=== PATIENT | female | born 1940 | race Caucasian/White ===

== ENCOUNTER 2016-10-09 21:54 | Inpatient (IN) | payer OTHER ==
[~2016-10-09] VITALS: Ht 175.3 cm; Wt 81.9 kg
[2016-10-09] MEDS ORDERED: SIMV10TA2 PO (23:32)
[2016-10-09] MEDS ORDERED: ASPI-435 PO (23:32)
[2016-10-09] MEDS ORDERED: GLYB5TAB8 PO (23:33)
[2016-10-09] MEDS ORDERED: INDSR/120 PO (23:33)
[2016-10-09] MEDS ORDERED: GLC/500 PO (23:33)
[2016-10-09 23:35] LABS: BASO % 0.3 %; BASO ABS # 0.02 K/uL (0-0.2); COMPLETE YES; EOS % 2.6 %; HEMATOCRIT 37.1 % (37-47); IG% 0.3 %; LYMPH % 26.2 %; LYMPH ABS # 1.61 K/uL (1.2-3.4); MEAN CELL VOLUME 84.3 fL (80-100); MEAN CORPUSCULAR HEMOGLOBIN 27.7 pg (25-34); MEAN CORPUSCULAR HGB CONC 32.9 g/dl (32-36); MEAN PLATELET VOLUME 9.3 fL (7.4-10.4); MONO % 8.9 %; NEUT % 61.7 %; PLATELET COUNT 207 K/uL (130-400); WHITE BLOOD COUNT 6.15 K/uL (4.8-10.8)
[2016-10-09 23:57] LABS: ALT/SGPT 16 U/L (12-78); AST/SGOT 9 U/L (15-37); BLOOD UREA NITROGEN 15 mg/dl (7-18); BUN/CREATININE RATIO 12.1 (10-20); CALCIUM 8.7 mg/dl (8.5-10.1); CARBON DIOXIDE 29 mmol/L (21-32); CHLORIDE 106 mmol/L (98-107); GLUCOSE 167 mg/dl (70-99); POTASSIUM 3.6 mmol/L (3.5-5.1); SODIUM 144 mmol/L (136-145)
[2016-10-10] LABS: ALKALINE PHOSPHATASE 89 U/L (45-117)
[2016-10-10] MEDS ORDERED: OPTIRAY 320 IV PRN (00:15)
[2016-10-10] MEDS ORDERED: PIPERACILLIN/TAZOBACTAM 4.5 GM/100ML D5W IV STA (01:38)
--- NOTE | 2016-10-10 01:49 | EMERGENCY ROOM VISIT NOTE ---
History Report prepared by Maurizio: Katy Mcdonald Under the Supervision of: Dr. Jose Trujillo M.D. First contact with patient: 22:21 Chief Complaint: GI ASSESSMENT Stated Complaint: PRESSURE AND BOWEL Nursing Triage Summary: Pt reports she was in the bathtub this evening and noticed stool coming from her vagina History of Present Illness The patient is a 76 year old female who presents to the Emergency Room with complaints of an episode of stool coming from her vagina that occurred tonight. The patient states that she was taking a bath tonight when she noticed stool was coming from her vagina. She denies having this happen to her before. She denies abdominal pain. The patient notes lower abdominal pressure that felt like she needed to move her bowels for the past few days. She notes that her last bowel movement was today and it was normal. The patient denies nausea or vomiting. She has a history of a partial hysterectomy, hypertension and Type 2 diabetes. She denies any blood in her stool or vaginal bleeding. Source of History: patient Onset: tonight Position: other (vagina) Quality: other (stool from vagina) Timing: other (episode) Associated Symptoms: + abdominal pain (pressure), No nausea, No vomiting Review of Systems See HPI for pertinent positives & negatives. A total of 10 systems reviewed and were otherwise negative. Past Medical & Surgical Medical Problems: (1) Hypertension (2) Tachycardia (3) Type 2 diabetes mellitus Surgical Problems: (1) S/P partial hysterectomy Family History Cancer Diabetes mellitus Heart disease Hypertension Kidney disease Kidney stones Social History Smoking Status: Never Smoker Smokeless Tobacco Use: No Alcohol Use: none Housing Status: lives alone Occupation Status: retired Current/Historical Medications Scheduled Aspirin (Aspirin 81), 81 MG PO DAILY Glyburide (Micronase), 5 MG PO DAILY Metformin Hcl (Glucophage), 500 MG PO BID Propranolol La (Inderal La), 120 MG PO DAILY Simvastatin (Zocor), 1 TAB PO HS Allergies Coded Allergies: No Known Allergies (Unverified , 10/09/16) Physical Exam Vital Signs Date Time Temp Pulse Resp B/P Pulse Ox O2 Delivery O2 Flow Rate FiO2 10/10/16 00:43 69 164/86 97 Room Air 10/09/16 21:58 36.7 71 20 188/87 98 Room Air Physical Exam Constitutional: Vital signs reviewed. Eyes: Pupils are equal round reactive to light. Conjunctiva are noninjected. ENT: Pharynx is clear without erythema or exudate. Mucous membranes are moist. Neck supple without meningeal signs. Respiratory: Clear to auscultation bilaterally. Breath sounds are equal bilaterally. Cardiovascular: Regular rate and rhythm. No rubs or gallops. GI: Soft, nondistended and nontender. Bowel sounds are present. Musculoskeletal: No peripheral edema. No lower extremity tenderness. Vaginal: Loose brown feces from vagina. Integumentary: No cyanosis. Neurological: The patient is awake and alert. No focal deficits. Psychiatric: Normal affect. Medical Decision & Procedures ER Provider Diagnostic Interpretation: CT results as stated below per my review and radiologist interpretation. CT ABDOMEN & PELVIS: Severe wall thickening of the sigmoid colon with several associated diverticula. Primary consideration is acute diverticulitis. However, mass not excluded. Correlated with clinical findings and direct visualization. Small amount of free fluid. No free air or peridiverticular abscess. Several adjacent subcentimeter mesenteric lymph nodes. Absent uterus. There is suspected rectovaginal fistula on image 405 of series 3. Gas in the vaginal fornix noted. There is mild right hydronephrosis and hydroureter, may be secondary to extrinsic compression of the distal right ureter from inflammatory changes in the sigmoid colon. Recommended followup to resolution. Fatty liver. Degenerative changes in the lumbar spine. Radiologist: Kacey Rodriguez MD Study read at 01:02 Laboratory Results 10/09/16 23:22 Red Blood Count 4.40, Mean Corpuscular Volume 84.3, Mean Corpuscular Hemoglobin 27.7, Mean Corpuscular Hemoglobin Concent 32.9, Mean Platelet Volume 9.3, Neutrophils (%) (Auto) 61.7, Lymphocytes (%) (Auto) 26.2, Monocytes (%) (Auto) 8.9, Eosinophils (%) (Auto) 2.6, Basophils (%) (Auto) 0.3, Neutrophils # (Auto) 3.79, Lymphocytes # (Auto) 1.61, Monocytes # (Auto) 0.55, Eosinophils # (Auto) 0.16, Basophils # (Auto) 0.02 10/09/16 23:22 Test 10/09/16 23:22 White Blood Count 6.15 K/uL (4.8-10.8) Red Blood Count 4.40 M/uL (4.2-5.4) Hemoglobin 12.2 g/dL (12.0-16.0) Hematocrit 37.1 % (37-47) Mean Corpuscular Volume 84.3 fL (80-100) Mean Corpuscular Hemoglobin 27.7 pg (25-34) Mean Corpuscular Hemoglobin Concent 32.9 g/dl (32-36) Platelet Count 207 K/uL (130-400) Mean Platelet Volume 9.3 fL (7.4-10.4) Neutrophils (%) (Auto) 61.7 % Lymphocytes (%) (Auto) 26.2 % Monocytes (%) (Auto) 8.9 % Eosinophils (%) (Auto) 2.6 % Basophils (%) (Auto) 0.3 % Neutrophils # (Auto) 3.79 K/uL (1.4-6.5) Lymphocytes # (Auto) 1.61 K/uL (1.2-3.4) Monocytes # (Auto) 0.55 K/uL (0.11-0.59) Eosinophils # (Auto) 0.16 K/uL (0-0.5) Basophils # (Auto) 0.02 K/uL (0-0.2) RDW Standard Deviation 40.6 fL (36.4-46.3) RDW Coefficient of Variation 13.3 % (11.5-14.5) Immature Granulocyte % (Auto) 0.3 % Immature Granulocyte # (Auto) 0.02 K/uL (0.00-0.02) Anion Gap 9.0 mmol/L (3-11) Est Creatinine Clear Calc Drug Dose 45.6 ml/min Estimated GFR () 50.5 Estimated GFR (Non- 43.6 BUN/Creatinine Ratio 12.1 (10-20) Calcium Level 8.7 mg/dl (8.5-10.1) Total Bilirubin 0.5 mg/dl (0.2-1) Direct Bilirubin < 0.1 mg/dl (0-0.2) Aspartate Amino Transf (AST/SGOT) 9 U/L (15-37) Alanine Aminotransferase (ALT/SGPT) 16 U/L (12-78) Alkaline Phosphatase 89 U/L (45-117) Total Protein 8.2 gm/dl (6.4-8.2) Albumin 3.7 gm/dl (3.4-5.0) Lipase 97 U/L (73-393) Laboratory results as reviewed by me. ED Course 2221: The patient was evaluated in room A2. A complete history and physical exam was performed. 223: I spoke with Dr. Portillo - Surgery about the patient. He says to order a CT scan and admit to medicine. 0017: I checked on the patient and discussed the test results with her. She is waiting for CT scan. 0111: The patient states that the contrast is now coming out of her vagina. 0138: Zosyn Iv 4.5 gm IV. 0141: I spoke with Dr. Rotmhan of [facility]. We discussed the patient and her results. The patient will be further evaluated by Dr. Rothman - [facility]. 0144: I talked to the patient's daughter about her results. Medical Decision This is a 76-year-old female presents with stool coming from her vagina. Differential diagnosis includes rectovaginal fistula, colon mass, abdominal mass , carcinoma, colitis. I did perform a limited focused review of portions of the patient's old chart on the electronic medical record. The patient has had no visits to this hospital. Blood Pressure Screening: Patient was found to have an elevated blood pressure and was referred to their primary doctor for recheck and further treatment. Medication Reconciliation: I attest that I have personally reviewed the patient' s current medication list. I did evaluate the patient as noted above. The patient is having stool coming out of her vaginal cough. It started tonight. She has had some pressure in her abdomen but denies any pain. She states she feels otherwise well. I did speak to the surgeon sales operations associate who recommended obtaining a CT scan and admitting her to medicine. IV access was established. I did order and review the patient 's blood work as noted in the electronic medical record. Her white blood cell count is not elevated. I did order a CT of the abdomen and pelvis. I did review the images myself as well as the radiology report as described above. She has sigmoid diverticulitis without perforation or free air. 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 I did treat her with Zosyn IV. I did discuss the case with the hospitalist on-call and the corrections caseworker. Consults Time Called: 2228 Consulting Physician: Dr. Portillo - Surgery Returned Call: [phone] Portillo - Surgery about the patient. He says to order a CT scan and admit to medicine. Additional Consults: Time Called: 138 Consulted Physician: Dr. Stephan Fuller Returned Call: 014 Additional Comments: I spoke with Dr. Rothman of [facility]. We discussed the patient and her results. The patient will be further evaluated by Dr. Stephan Fuller. Impression Primary Impression: Sigmoid diverticulitis Additional Impression: Rectal vaginal fistula Scribe Attestation The scribe's documentation has been prepared under my direct and personally reviewed by me in its entirety. I confirm that the note above accurately reflects all work, treatment, procedures, and medical decision making performed by me. Departure Information Dispostion Being Evaluated By Hospitalist Tasneem Muñiz M.D. (PCP) Problem Qualifiers
[2016-10-10] MEDS ORDERED: GLUCAGON FOR INJ 1 MG VIAL SQ PRN (02:30)
[2016-10-10] MEDS ORDERED: DEXTROSE 50% 50 ML SYR IV PRN (02:30)
[2016-10-10] MEDS ORDERED: GLUCOSE 40% GEL 15 GM TUBE PO PRN (02:30)
[2016-10-10] MEDS ORDERED: CLONIDINE HCL 0.1 MG TAB PO PRN (02:30)
[2016-10-10] MEDS ORDERED: GLUCOSE 10 TABS/TUBE PO PRN (02:30)
[2016-10-10] MEDS ORDERED: PIPERACILL/TAZOBAC CONSULT ACTIVE PRN (02:31)
[2016-10-10] MEDS ORDERED: PHARMACY GLYCEMIC MGMT CONSULT PRN (02:33)
--- NOTE | 2016-10-10 02:38 | History and Physical ---
History & Physical Date & Time of Service: October 10, 2016 at 02:23 Chief Complaint: Pressure And Bowel Primary Care Physician: Tasneem Rosa M.D. History of Present Illness Source: patient, clinic records, hospital records 76 year old female with history of DM Type 2 on oral medications, Hypertension, CKD 3 and Paroxysmal Atrial Tachycardia presenting with passage of feces from the vagina noted this evening. Follows with Dr. Rosa for Primary Care. Patient was at her usual state of health until this evening, while taking a shower, patient noted fecal matter coming from the vagina. She denies abdominal pain, diarrhea, fever/chills, nausea/vomiting. Patient then went to the ER for evaluation. Patient was received with BP of 188/7, HR 71, afebrile. CT abdomen/pelvis: possible sigmoid diverticulitis, rectosigmoid fistula, right hydronephrosis General Surgeon Dr. Portillo consulted. On my exam, patient was resting in bed, comfortable. She reports that she continues to have passage of fecal matter from the vagina. Denies chills, abdominal pain, nausea/vomiting. No changes with urination. Denies other symptoms. Past Medical/Surgical History Medical Problems: (1) Hypertension Status: Chronic (2) Type 2 diabetes mellitus Status: Chronic Family History Cancer Diabetes mellitus Heart disease Hypertension Kidney disease Kidney stones Social History Smoking Status: Never Smoker Smokeless Tobacco Use: No Alcohol Use: none Drug Use: none Marital Status: Occupational Status: retired Allergies Coded Allergies: No Known Allergies (Unverified , 10/09/16) Home Medications Scheduled Aspirin (Aspirin 81), 81 MG PO DAILY Glyburide (Micronase), 5 MG PO DAILY Metformin Hcl (Glucophage), 500 MG PO BID Propranolol La (Inderal La), 120 MG PO DAILY Simvastatin (Zocor), 1 TAB PO HS Review of Systems Constitutional- no fever; no weight loss Eyes- no acute visual changes ENT- no sinus drainage; no pharyngitis Pulmonary- no cough, no wheezing, no shortness of breath Cardiac- no chest pain, no palpitations, no orthopnea, no dependent edema GI- no nausea, no vomiting, no diarrhea, no melena, no hematochezia - no dysuria, no hematuria Musculoskeletal- no arthralgias, no myalgias Derm- no rashes, no new skin lesions, no changing skin lesions Hematologic- no unusual bruising, no unusual bleeding Lymphatics- no adenopathy Endocrine- no polyuria or polydipsia; no heat or cold intolerance Neuro- no headaches, no focal neurologic symptoms Psych- no anxiety, no depression Physical Exam Vital Signs Date Time Temp Pulse Resp B/P Pulse Ox O2 Delivery O2 Flow Rate FiO2 10/10/16 00:43 69 164/86 97 Room Air 10/09/16 21:58 36.7 71 20 188/87 98 Room Air General Appearance: WD/WN, no apparent distress Head: normocephalic, atraumatic Eyes: normal inspection, EOMI, sclerae normal ENT: normal ENT inspection, hearing grossly normal, pharynx normal Neck: supple, no adenopathy, thyroid normal, no JVD, trachea midline Respiratory/Chest: lungs clear, normal breath sounds, no respiratory distress, no accessory muscle use Cardiovascular: regular rate, rhythm, no edema, no JVD, no murmur, normal peripheral pulses Abdomen/GI: normal bowel sounds, non tender, soft Back: normal inspection, no CVA tenderness Extremities/Musculoskelatal: normal inspection, no calf tenderness, no pedal edema, normal range of motion Neurologic/Psych: small lot operator II-XII nml as tested, no motor/sensory deficits, alert, normal mood/affect, oriented x 3 Skin: normal color, warm/dry, no rash Lymphatic: no adenopathy Diagnostics Laboratory Results Results Past 24 Hours Test 10/09/16 23:22 Range/Units White Blood Count 6.15 4.8-10.8 K/uL Red Blood Count 4.40 4.2-5.4 M/uL Hemoglobin 12.2 12.0-16.0 g/dL Hematocrit 37.1 37-47 % Mean Corpuscular Volume 84.3 80-100 fL Mean Corpuscular Hemoglobin 27.7 25-34 pg Mean Corpuscular Hemoglobin Concent 32.9 32-36 g/dl Platelet Count 207 130-400 K/uL Mean Platelet Volume 9.3 7.4-10.4 fL Neutrophils (%) (Auto) 61.7 % Lymphocytes (%) (Auto) 26.2 % Monocytes (%) (Auto) 8.9 % Eosinophils (%) (Auto) 2.6 % Basophils (%) (Auto) 0.3 % Neutrophils # (Auto) 3.79 1.4-6.5 K/uL Lymphocytes # (Auto) 1.61 1.2-3.4 K/uL Monocytes # (Auto) 0.55 0.11-0.59 K/uL Eosinophils # (Auto) 0.16 0-0.5 K/uL Basophils # (Auto) 0.02 0-0.2 K/uL RDW Standard Deviation 40.6 36.4-46.3 fL RDW Coefficient of Variation 13.3 11.5-14.5 % Immature Granulocyte % (Auto) 0.3 % Immature Granulocyte # (Auto) 0.02 0.00-0.02 K/uL Sodium Level 144 136-145 mmol/L Potassium Level 3.6 3.5-5.1 mmol/L Chloride Level 106 98-107 mmol/L Carbon Dioxide Level 29 21-32 mmol/L Anion Gap 9.0 3-11 mmol/L Blood Urea Nitrogen 15 7-18 mg/dl Creatinine 1.20 0.60-1.20 mg/dl Est Creatinine Clear Calc Drug Dose 45.6 ml/min Estimated GFR () 50.5 Estimated GFR (Non- 43.6 BUN/Creatinine Ratio 12.1 10-20 Random Glucose 167 70-99 mg/dl Calcium Level 8.7 8.5-10.1 mg/dl Total Bilirubin 0.5 0.2-1 mg/dl Direct Bilirubin < 0.1 0-0.2 mg/dl Aspartate Amino Transf (AST/SGOT) 9 15-37 U/L Alanine Aminotransferase (ALT/SGPT) 16 12-78 U/L Alkaline Phosphatase 89 45-117 U/L Total Protein 8.2 6.4-8.2 gm/dl Albumin 3.7 3.4-5.0 gm/dl Lipase 97 73-393 U/L Diagnostic Radiology per Initial CT abdomen/pelvis report: CT ABDOMEN & PELVIS: Severe wall thickening of the sigmoid colon with several associated diverticula. Primary consideration is acute diverticulitis. However, mass not excluded. Correlated with clinical findings and direct visualization. Small amount of free fluid. No free air or peridiverticular abscess. Several adjacent subcentimeter mesenteric lymph nodes. Absent uterus. There is suspected rectovaginal fistula on image 405 of series 3. Gas in the vaginal fornix noted. There is mild right hydronephrosis and hydroureter, may be secondary to extrinsic compression of the distal right ureter from inflammatory changes in the sigmoid colon. Recommended followup to resolution. Fatty liver. Degenerative changes in the lumbar spine. Radiologist: Kacey Rodriguez MD Study read at 01:02 EKG pending Impression Assessment and Plan 76 year old female with history of DM Type 2 on oral medications, Hypertension, CKD 3 and Paroxysmal Atrial Tachycardia presenting with passage of feces from the vagina noted this evening. RECTOVAGINAL FISTULA LIKELY FROM SIGMOID DIVERTICULITIS - no signs of sepsis - start IV Zosyn [id number] + K NPO except medications - General Surgery- Dr. Portillo consulted RIGHT HYDROURETER AND HYDRONEPHROSIS - possible extrinsic compression of ureter from sigmoid diverticulitis per initial CT abdomen/pelvis report - no urinary symptoms - monitor creatinine baseline UA DM TYPE 2 - usually on Metformin and Glyburide: hold for now - ISS Pharmacy consulted HISTORY OF HYPERTENSION not on BP medications at this time PRN Clonidine CKD 3 stable monitor HISTORY OF PAROXYSMAL ATRIAL TACHYCARDIA no cardiac symptoms EKG pending continue Propranolol 120mg po daily DVT Prophylaxis SCDs only for now, in anticipation of possible surgical procedure Code Status discussed with patient, DNR Disposition pending lives at home follow up with Dr. Rosa for Primary Care VTE Prophylaxis VTE Risk Assessment Done? Y/N: Yes Risk Level: Moderate Given or contraindicated: SCD's
[2016-10-10 02:45] VITALS: BP 160/87; PULSE 65; TEMP 37; O2SAT 93; Ht 175.3 cm; Wt 81.9 kg
[2016-10-10] MEDS: D5NSS + 20MEQ KCL 1,000 ML IV SCH ×2 (03:23→20:21)
[2016-10-10] MEDS: LOPERAMIDE HCL 2 MG CAP PO PRN (04:05)
[2016-10-10] MEDS: PIPERACILL/TAZOBAC IV 3.375 GM in DEXTROSE 5% 100ML IV SCH ×3 (05:50→21:56)
--- NOTE | 2016-10-10 06:32 | DIAGNOSTIC IMAGING REPORT ---
CHEST ONE VIEW PORTABLE CLINICAL HISTORY: Preoperative chest COMPARISON STUDY: No previous studies for comparison. FINDINGS: The cardiac and mediastinal contours are normal. There is no evidence of focal pulmonary consolidation. There is no evidence of failure. No pleural effusions are visualized.[ IMPRESSION: No active disease in the chest. Electronically signed by: Abdiel Rodriguez M.D. 10/10/2016 6:30 AM Dictated Date/Time: 10/10/2016 6:30 AM
--- NOTE | 2016-10-10 07:32 | DIAGNOSTIC IMAGING REPORT ---
ABDOMEN AND PELVIS CT WITH IV AND ORAL CONTRAST CT DOSE: 633.97 mGy.cm HISTORY: Stool contents from vagina. eval for rectovaginal fistula TECHNIQUE: Multiaxial CT images of the abdomen and pelvis were performed following the use of intravenous and oral contrast. COMPARISON STUDY: None. FINDINGS: A 3 mm nodule within the right lower lobe on image 30. Linear density at the base of the left lower lobe favors atelectasis. No pneumoperitoneum. No suspicious lytic or blastic osseous lesions. A diverticulum at the second portion of the duodenum. The liver, gallbladder, pancreas, spleen, and adrenal glands are unremarkable. Subcentimeter retroperitoneal lymph nodes. Normal left kidney. Mild fullness within the right renal collecting system without jazzy hydronephrosis. Normal bladder. The uterus is surgically absent. Extensive colonic diverticulosis. No evidence for bowel obstruction. The appendix is surgically absent. There is thickening of the mid to distal sigmoid colon. At the anterior aspect of the rectosigmoid junction there is a small gas tract extending anteriorly and abutting the vaginal cuff. This is concerning for a rectovaginal fistula. This is best seen on image 405. The area of thickening within the mid sigmoid colon demonstrates pericolonic fat stranding and a few pericolonic lymph nodes. Dominant lymph node measures 11 mm. Therefore, this likely represents an area of acute diverticulitis. However, a colonic mass could also have a similar appearance. IMPRESSION: 1. Bowel wall thickening with pericolonic fat stranding and a few mildly enlarged pericolonic lymph nodes at the mid to distal sigmoid colon. This likely represents acute diverticulitis. However, colonoscopy is recommended to exclude the possibility of a colonic mass. 2. There is a small gas tract extending from the anterior aspect of the rectosigmoid junction to the vaginal cuff. This likely represents a rectovaginal fistula. 3. Mild fullness within the right renal collecting system without jazzy hydronephrosis. Electronically signed by: Josse Mendoza M.D. 10/10/2016 7:31 AM Dictated Date/Time: 10/10/2016 7:22 AM
[2016-10-10 07:50] VITALS: BP 133/82; PULSE 62; TEMP 37.1; O2SAT 97
[2016-10-10] MEDS: INSULIN ASPART 100 UNITS/ML 3 ML PEN SC SCH ×3 (08:30→18:56)
[2016-10-10 08:59] LABS: URINE APPEARANCE CLEAR (CLEAR); URINE BILIRUBIN NEG (NEG); URINE COLOR YELLOW; URINE EPITHELIAL CELL AUTO 20-30 /lpf (0-5); URINE NITRITE NEG (NEG); URINE PH 7.5 (4.5-7.5); UROBILINOGEN NEG (NEG)
[2016-10-10 09:00] LABS: MANUAL MICROSCOPIC REQUIRED? NO; REVIEW REQ? NO
[2016-10-10] MEDS: PROPRANOLOL HCL 60 MG LA CAP PO SCH (09:15)
--- NOTE | 2016-10-10 09:16 | CONSULTATION REPORT ---
DATE OF CONSULTATION: 10/10/2016 ATTENDING: Dr. Portillo. REASON FOR CONSULT: Colovaginal fistula. HISTORY OF PRESENT ILLNESS: The patient is a 76-year-old female admitted last night to the hospitalist service after noticing some stool coming from her vagina while taking a bath. She has not had this before. She was treated once or twice in the last year for urinary tract infection. She did have some mucousy drainage from the vagina at that time, was treated by her PCP for UTI. She has not had a history of diverticulitis or abdominal pain. She has not had colonoscopy. She has not had any fevers or chills. PAST MEDICAL HISTORY: 1. Hypertension. 2. Tachycardia. 3. Type 2 diabetes. PAST SURGICAL HISTORY: Hysterectomy and appendectomy. She still has ovaries. SOCIAL HISTORY: Denies tobacco use. She lives alone. Her daughter is at the bedside. FAMILY HISTORY: Noncontributory. CURRENT MEDICATIONS: Home meds include aspirin, glyburide, metformin, Inderal and and Zocor. INPATIENT MEDICATIONS: Include Inderal 120 mg p.o. daily, sliding scale NovoLog, Zosyn 3.375 grams IV q. 8 hours, Imodium 2 mg as needed, Catapres 0.1 mg p.o. as needed, Tylenol 650 mg as needed. ALLERGIES: NKDA. REVIEW OF SYSTEMS: GENERAL: No fevers or chills. She enjoys good health overall. She has not had any recent hospital admissions. CARDIAC: No chest pain, history of SD or edema. PULMONARY: No cough or shortness of breath. ABDOMEN: As per HPI, denies abdominal pain. No diarrhea. She has not had colonoscopy. She did not have a history of biliary disease. PHYSICAL EXAMINATION: GENERAL: She is resting comfortably, in no acute distress. VITAL SIGNS: Temperature 37.1, pulse 62, respirations 18, blood pressure 133/82, pulse ox 97% on room air. HEENT: Unremarkable. HEART: Regular rate and rhythm. LUNGS: Clear to auscultation. ABDOMEN: Soft, nondistended, nontender. She has a vertical midline scar. SKIN: Warm and dry. EXTREMITIES: Without edema. LABORATORY DATA: White count 6000, hemoglobin 12.2, hematocrit 37.1, platelets 207,000. Sodium 144, potassium 3.6, BUN 15, creatinine 1.2, glucose 167. Urinalysis is pending. IMAGING: CT shows thickening and fat stranding along the mid to distal colon. There is a small gas tract extending from the rectosigmoid junction of the vaginal cuff. There is a fullness in the right renal collecting system. IMPRESSION: Colovaginal fistula. PLAN: Plan for eventual sigmoid colectomy. She will need evaluation by urology and GI for colonoscopy prior to colectomy. We will follow along. TARA
--- NOTE | 2016-10-10 11:27 | Gastrointestinal Consultation ---
Gastrointestinal Consultation Date of Consultation: October 10, 2016 Attending Physician: Loli Portillo Consulting Physician: Deisy Gonzalez Reason for Consultation: Colonoscopy request History of Present Illness Patient is a 76 year old female w PMHx of DM II, HTN, CKD III, Afib, who presented to ED w c/o stool passage from her vagina last night. She never had this happen before. Hx of partial hysterectomy, appendectomy, denies any bowel surgeries. She denies any fever, chills, abd pain, n/v. She did note small amt of blood in the stool this AM as she passed it again through her vagina. She had CT abd/pelvis which showed severe wall thickening of sigmoid colon w several associated diverticula, primary consideration is acute diverticulitis. Mass not excluded. No free air or peridiverticular abscess. 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 There is a mild R hydronephrosis, hydroureter likely due to extrinsic compression of distal R ureter from inflammatory changes in the sigmoid colon. She had been seen by Surgery team, who is planning on sigmoid colectomy. Though prior to this will need colonoscopy eval, thus we're consulted. Past Medical/Surgical History Medical Problems: (1) Rectal vaginal fistula Status: Acute (2) Sigmoid diverticulitis Status: Acute Past Medical History: See above Past Surgical History: See above. Family History Cancer Diabetes mellitus Heart disease Hypertension Kidney disease Kidney stones Social History Smoking Status: Never Smoker Alcohol Use: none Drug Use: none Marital Status: Housing Status: lives alone Occupation Status: retired Allergies Coded Allergies: No Known Allergies (Unverified , 10/09/16) Current Medications Home Meds and Scripts Medications Dose Route/Sig Max Daily Dose Days Date Category Inderal La (Propranolol HCl) 120 Mg Capcr 120 Mg PO DAILY 10/09/16 Reported Micronase (Glyburide) 5 Mg Tab 5 Mg PO DAILY 10/09/16 Reported Glucophage (Metformin Hcl) 500 Mg Tab 500 Mg PO BID 10/09/16 Reported Zocor (Simvastatin) Unknown Strength Tab 1 Tab PO HS 10/09/16 Reported Aspirin 81 (Aspirin) 81 Mg Tab 81 Mg PO DAILY 10/09/16 Reported Review of Systems Constitutional: No chills, No fever Respiratory: No cough, No shortness of breath Cardiac: No chest pain, No edema Abdomen: + see HPI, No nausea, No pain, No vomiting Physical Exam Date Time Temp Pulse Resp B/P Pulse Ox O2 Delivery O2 Flow Rate FiO2 10/10/16 08:00 Room Air 10/10/16 07:50 37.1 62 18 133/82 97 Room Air 10/10/16 02:45 37.0 65 18 160/87 93 Room Air 10/10/16 02:32 37.1 70 20 141/88 97 10/10/16 02:30 37.1 70 141/88 97 Room Air 10/10/16 00:43 69 164/86 97 Room Air 10/09/16 21:58 36.7 71 20 188/87 98 Room Air General Appearance: WD/WN, no apparent distress Eyes: normal inspection, PERRL, EOMI Neck: supple, no JVD, trachea midline Respiratory/Chest: normal breath sounds, no respiratory distress, no accessory muscle use Cardiovascular: regular rate, rhythm, no gallop, no murmur Abdomen: normal bowel sounds, non tender, soft Extremities: normal inspection, no pedal edema, no calf tenderness Neurologic/Psych: alert, normal mood/affect, oriented x 3 Skin: normal color, no jaundice, no rash Laboratory Results Last 24 Hours Test 10/09/16 23:22 10/10/16 07:54 White Blood Count 6.15 K/uL Red Blood Count 4.40 M/uL Hemoglobin 12.2 g/dL Hematocrit 37.1 % Mean Corpuscular Volume 84.3 fL Mean Corpuscular Hemoglobin 27.7 pg Mean Corpuscular Hemoglobin Concent 32.9 g/dl Platelet Count 207 K/uL Mean Platelet Volume 9.3 fL Neutrophils (%) (Auto) 61.7 % Lymphocytes (%) (Auto) 26.2 % Monocytes (%) (Auto) 8.9 % Eosinophils (%) (Auto) 2.6 % Basophils (%) (Auto) 0.3 % Neutrophils # (Auto) 3.79 K/uL Lymphocytes # (Auto) 1.61 K/uL Monocytes # (Auto) 0.55 K/uL Eosinophils # (Auto) 0.16 K/uL Basophils # (Auto) 0.02 K/uL RDW Standard Deviation 40.6 fL RDW Coefficient of Variation 13.3 % Immature Granulocyte % (Auto) 0.3 % Immature Granulocyte # (Auto) 0.02 K/uL Sodium Level 144 mmol/L Potassium Level 3.6 mmol/L Chloride Level 106 mmol/L Carbon Dioxide Level 29 mmol/L Anion Gap 9.0 mmol/L Blood Urea Nitrogen 15 mg/dl Creatinine 1.20 mg/dl Est Creatinine Clear Calc Drug Dose 45.6 ml/min Estimated GFR () 50.5 Estimated GFR (Non- 43.6 BUN/Creatinine Ratio 12.1 Random Glucose 167 mg/dl Calcium Level 8.7 mg/dl Total Bilirubin 0.5 mg/dl Direct Bilirubin < 0.1 mg/dl Aspartate Amino Transf (AST/SGOT) 9 U/L Alanine Aminotransferase (ALT/SGPT) 16 U/L Alkaline Phosphatase 89 U/L Total Protein 8.2 gm/dl Albumin 3.7 gm/dl Lipase 97 U/L Urine Color YELLOW Urine Appearance CLEAR Urine pH 7.5 Urine Specific [place] 1.020 Urine Protein NEG Urine Glucose (UA) NEG Urine Ketones NEG Urine Occult Blood NEG Urine Nitrite NEG Urine Bilirubin NEG Urine Urobilinogen NEG Urine Leukocyte Esterase SMALL Urine WBC (Auto) 10-30 /hpf Urine RBC (Auto) 0-4 /hpf Urine Hyaline Casts (Auto) 1-5 /lpf Urine Epithelial Cells (Auto) 20-30 /lpf Urine Bacteria (Auto) NEG Impression Patient is a 76 year old female w passage of stool in vagina last night, CT abd/ pelvis showed sigmoid diverticulitis & 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 Plan - Agree w Zaidasyn IV - Discussed case w Dr. Gonzalez - pt would need antibx treatment first for diverticulitis, preferably perform the colonoscopy in 4-6 week's time given acute diverticulitis. Late entry: Patient was seen and examined with Paige Mayorga on 10/10. Her note reflects our findings and plan. Patient with evidence of diverticulitis on imaging which would explain the fistula. Would prefer that she receive at least a full course of antibiotics before proceeding with a colonoscopy. Patient is agreeable. Deisy Gonzalez, DO
--- NOTE | 2016-10-10 13:56 | Pharmacy Progress Note ---
Glycemic Control Intl Consult Date of Service October 10, 2016. Scope Glycemic Pharmacist consulted by Dr Rothman on 10/10/16 for glycemic control and to write orders per [facility] inpatient glycemic control protocol Objective Weight (Kilograms): 81.900 Accuchecks BSG (last 24hrs): Test 10/09/16 23:22 10/10/16 11:30 Random Glucose 167 mg/dl (70-99) Bedside Glucose 141 mg/dl (70-90) Laboratory Data (last 24hrs) Test 10/09/16 23:22 Anion Gap 9.0 mmol/L BUN/Creatinine Ratio 12.1 Blood Urea Nitrogen 15 mg/dl Creatinine 1.20 mg/dl Potassium Level 3.6 mmol/L Sodium Level 144 mmol/L White Blood Count 6.15 K/uL Red Blood Count 4.40 M/uL Hemoglobin 12.2 g/dL Hematocrit 37.1 % Mean Corpuscular Volume 84.3 fL Mean Corpuscular Hemoglobin 27.7 pg Mean Corpuscular Hemoglobin Concent 32.9 g/dl Platelet Count 207 K/uL Mean Platelet Volume 9.3 fL Neutrophils (%) (Auto) 61.7 % Lymphocytes (%) (Auto) 26.2 % Monocytes (%) (Auto) 8.9 % Eosinophils (%) (Auto) 2.6 % Basophils (%) (Auto) 0.3 % Neutrophils # (Auto) 3.79 K/uL Lymphocytes # (Auto) 1.61 K/uL Monocytes # (Auto) 0.55 K/uL Eosinophils # (Auto) 0.16 K/uL Basophils # (Auto) 0.02 K/uL Recent Pertinent Medications Outpatient Anti-diabetic Regimen: * Glyburide 5 mg daily * Metformin 500 mg BID * A1c = unknown The patient is currently receiving: * Basal insulin: None * Correctional Insulin: Novolog Correction per scale ACHS Goal Range: Low 140 mg/dL - High 180 mg/dL Correction Factor: 30 mg/dL/unit * Prandial insulin: Per carb ratio of 1 unit per 20 grams CHO consumed * Oral Agents: Held for admission Risk Factors for Insulin Resistance: * Infection: diverticulitis - on Zosyn * IVF: D5NS + 20 K @ 60 cc/hr * Diet: NPO Assessment & Plan ASSESSMENT: 10/10/16 * 76 y/o female admitted for rectovaginal fistula; unknown control of type 2 diabetes as no recent A1c available * Pt is maintained on oral antidiabetic agents as an outpatient * Oral agents are not recommended for inpatient use d/t drug interactions, changing PO intake, and difficulty titrating for acute hyper/hypoglycemia. ADA recommends re-initiating outpatient oral agents 1-2 days prior to discharge if/ when appropriate if they were held on admission. * Will hold oral agents for admission and utilize SQ bolus insulin regimen which is the recommended regimen for inpatient glycemic control. * Current CF/CR for Novolog seem appropriate for patient's weight and stress level; no basal since BSGs reasonable and patient NPO * ADA & AACE recommend a goal blood sugar range 140-180 mg/dl for the majority of critically ill & non-critically ill patients. However, more stringent targets may be selected in individual cases. Will utilize more stringent goal of 110-150 mg/dl based on patient age & comorbidities. Additionally, tighter glycemic control is warranted to facilitate wound/infection healing. PLAN FOR INPATIENT GLYCEMIC CONTROL: * No basal at this time * Continue correction factor of 30 mg/dl/unit * Continue carb ratio of 1 unit per 20 grams CHO consumed * Change goal range to Low 110 mg/dL - High 150 mg/dL * A1c w/ AM labs * Please note that the plan above was derived based on current level of insulin resistance and hospital stress. These recommendations are appropriate for inpatient admission only. Plan of care upon discharge will need to be reassessed to avoid potential outpatient hypo/hyperglycemia. Thank you.
[2016-10-10 15:29] VITALS: BP 124/72; PULSE 64; TEMP 37.2; O2SAT 96
--- NOTE | 2016-10-10 22:14 | Progress Note ---
Medicine Progress Note Date & Time of Visit: October 10, 2016 at 17:00 . Subjective No fever. Chills at home, but none since admission. No abdominal pain, nausea, vomiting, diarrhea, hematochezia. Persistent feculent vaginal discharge. No dysuria. No chest pain. No cough or shortness of breath. . Objective Last 8 Hrs Date Time Temp Pulse Resp B/P Pulse Ox O2 Delivery O2 Flow Rate FiO2 10/10/16 16:00 Room Air 10/10/16 15:29 37.2 64 18 124/72 96 Room Air Physical Exam: General- lying in bed, no distress Lungs- clear to auscultation Heart- regular, no gallop Abdomen- quite bowel sounds, soft, nondistended, nontender Extremities- no pretibial edema or calf tenderness Neuro- alert, oriented . Laboratory Results: Last 24 Hours Test 10/09/16 23:22 10/10/16 07:54 10/10/16 11:30 10/10/16 18:40 White Blood Count 6.15 K/uL Red Blood Count 4.40 M/uL Hemoglobin 12.2 g/dL Hematocrit 37.1 % Mean Corpuscular Volume 84.3 fL Mean Corpuscular Hemoglobin 27.7 pg Mean Corpuscular Hemoglobin Concent 32.9 g/dl Platelet Count 207 K/uL Mean Platelet Volume 9.3 fL Neutrophils (%) (Auto) 61.7 % Lymphocytes (%) (Auto) 26.2 % Monocytes (%) (Auto) 8.9 % Eosinophils (%) (Auto) 2.6 % Basophils (%) (Auto) 0.3 % Neutrophils # (Auto) 3.79 K/uL Lymphocytes # (Auto) 1.61 K/uL Monocytes # (Auto) 0.55 K/uL Eosinophils # (Auto) 0.16 K/uL Basophils # (Auto) 0.02 K/uL RDW Standard Deviation 40.6 fL RDW Coefficient of Variation 13.3 % Immature Granulocyte % (Auto) 0.3 % Immature Granulocyte # (Auto) 0.02 K/uL Sodium Level 144 mmol/L Potassium Level 3.6 mmol/L Chloride Level 106 mmol/L Carbon Dioxide Level 29 mmol/L Anion Gap 9.0 mmol/L Blood Urea Nitrogen 15 mg/dl Creatinine 1.20 mg/dl Est Creatinine Clear Calc Drug Dose 45.6 ml/min Estimated GFR () 50.5 Estimated GFR (Non- 43.6 BUN/Creatinine Ratio 12.1 Random Glucose 167 mg/dl Calcium Level 8.7 mg/dl Total Bilirubin 0.5 mg/dl Direct Bilirubin < 0.1 mg/dl Aspartate Amino Transf (AST/SGOT) 9 U/L Alanine Aminotransferase (ALT/SGPT) 16 U/L Alkaline Phosphatase 89 U/L Total Protein 8.2 gm/dl Albumin 3.7 gm/dl Lipase 97 U/L Urine Color YELLOW Urine Appearance CLEAR Urine pH 7.5 Urine Specific [place] 1.020 Urine Protein NEG Urine Glucose (UA) NEG Urine Ketones NEG Urine Occult Blood NEG Urine Nitrite NEG Urine Bilirubin NEG Urine Urobilinogen NEG Urine Leukocyte Esterase SMALL Urine WBC (Auto) 10-30 /hpf Urine RBC (Auto) 0-4 /hpf Urine Hyaline Casts (Auto) 1-5 /lpf Urine Epithelial Cells (Auto) 20-30 /lpf Urine Bacteria (Auto) NEG Bedside Glucose 141 mg/dl 119 mg/dl Assessment & Plan APPARENT DIVERTICULITIS CT findings consistent with sigmoid diverticulitis, although other pathology must be considered. GI and General Surgery consulted. Treatment for acute diverticulitis with bowel rest, IV fluids, and IV antibiotics recommended. Endoscopic evaluation recommended in 4-6 weeks. VAGINAL DISCHARGE Patient presented with feculent vaginal discharge. CT suggested colovaginal fistula due to underlying diverticulitis or other pathology. HYPERTENSION Blood pressure elevated at time of admission, subsequently improved. Continue propranolol. DIABETES MELLITUS TYPE 2 Pharmacy consulted for glycemic management. VTE PROPHYLAXIS No anticoagulants in case surgical intervention necessary. SCD's. Ambulate. DISPOSITION Expected discharge to home. Family Medicine follow-up with Dr. Rosa. . Current Inpatient Medications: Current Inpatient Medications Medications (Trade) Dose Ordered Sig/Rainer Route Start Time Stop Time Status Last Admin Dose Admin Ioversol 100 ml 100 ml UD PRN IV 10/10/16 00:15 10/14/16 00:14 Potassium Chloride/Dextrose/ Sod Cl (D5nss + 20meq KCl) 1,000 ml @ 60 mls/hr [id number] IV 10/10/16 03:00 11/09/16 02:59 10/10/16 20:21 60 MLS/HR Piperacillin Sod/ Tazobactam Sod (Consult) 1 ea DAILY PRN N/A 10/10/16 02:31 11/09/16 02:30 Glucose (Glucose 40% Gel) 15-30 GRAMS 15 GRAMS... UD PRN PO 10/10/16 02:30 11/09/16 02:29 Glucose (Glucose Chew Tab) 4-8 Tablets 4 Tabl... UD PRN PO 10/10/16 02:30 11/09/16 02:29 Dextrose (Dextrose 50% 50ML Syringe) 25-50ML OF 50% DW IV FOR... UD PRN IV 10/10/16 02:30 11/09/16 02:29 Glucagon (Glucagon Inj) 1 mg UD PRN SQ 10/10/16 02:30 11/09/16 02:29 Miscellaneous Information (Consult Glycemic Management Pharmacy) 1 ea DAILY PRN N/A 10/10/16 02:33 11/09/16 02:32 Clonidine HCl (Catapres Tab) 0.1 mg Q6H PRN PO 10/10/16 02:30 11/09/16 02:29 Propranolol HCl (Inderal [place]) 120 mg DAILY PO 10/10/16 09:00 11/09/16 08:59 10/10/16 09:15 120 MG Acetaminophen 650 mg 650 mg Q4H PRN PO 10/10/16 02:30 11/09/16 02:29 Piperacillin Sod/ Tazobactam Sod/ Dextrose (Zosyn Iv/D5 100ml) 115 ml @ 28.75 mls/ hr Q8H IV 10/10/16 06:00 10/20/16 05:59 10/10/16 21:56 28.75 MLS/HR Loperamide HCl (Imodium Cap) 2 mg UD PRN PO 10/10/16 03:45 11/09/16 03:44 10/10/16 04:05 2 MG Insulin Aspart (novoLOG ASPART) SLIDING SCALE If C... Q6 SC 10/10/16 18:00 11/09/16 17:59
[2016-10-10] MEDS: ACETAMINOPHEN 325 MG TAB PO PRN (22:48)
[2016-10-10 23:32] VITALS: BP 127/74; PULSE 64; TEMP 37
[2016-10-11] MEDS: PIPERACILL/TAZOBAC IV 3.375 GM in DEXTROSE 5% 100ML IV SCH ×3 (06:25→21:40)
[2016-10-11] MEDS: INSULIN ASPART 100 UNITS/ML 3 ML PEN SC SCH ×5 (06:27→21:49)
[2016-10-11 06:31] LABS: BASO % 0.3 %; BASO ABS # 0.02 K/uL (0-0.2); COMPLETE YES; EOS % 3.4 %; HEMATOCRIT 38.2 % (37-47); IG% 0.4 %; LYMPH % 31.5 %; LYMPH ABS # 2.25 K/uL (1.2-3.4); MEAN CELL VOLUME 85.5 fL (80-100); MEAN CORPUSCULAR HEMOGLOBIN 27.7 pg (25-34); MEAN CORPUSCULAR HGB CONC 32.5 g/dl (32-36); MEAN PLATELET VOLUME 9.3 fL (7.4-10.4); MONO % 7.4 %; PLATELET COUNT 242 K/uL (130-400); RED BLOOD COUNT 4.47 M/uL (4.2-5.4); WHITE BLOOD COUNT 7.15 K/uL (4.8-10.8)
[2016-10-11 06:49] LABS: ESTIMATED AVERAGE GLUCOSE 143 mg/dl; HA1C FLAG Normal (Normal)
[2016-10-11 07:06] LABS: BUN/CREATININE RATIO 9.1 (10-20); CALCIUM 8.5 mg/dl (8.5-10.1); CREATININE 1.1 mg/dl (0.60-1.20); POTASSIUM 3.9 mmol/L (3.5-5.1)
[2016-10-11 07:17] VITALS: BP 150/79; PULSE 62; TEMP 36.8; O2SAT 95
--- NOTE | 2016-10-11 07:25 | Surgery Progress Note ---
Surgery Progress Note Date of Service October 11, 2016. Subjective + feeling well Objective Vital Signs: Date Time Temp Pulse Resp B/P Pulse Ox O2 Delivery O2 Flow Rate FiO2 10/11/16 07:17 36.8 62 20 150/79 95 Room Air 10/11/16 00:00 Room Air 10/10/16 23:32 37.0 64 18 127/74 Room Air 10/10/16 16:00 Room Air 10/10/16 15:29 37.2 64 18 124/72 96 Room Air 10/10/16 08:00 Room Air 10/10/16 07:50 37.1 62 18 133/82 97 Room Air Abdomen: non tender, non distended, soft Laboratory Results: Results Past 24 Hours Test 10/10/16 07:54 10/10/16 11:30 10/10/16 18:40 10/10/16 23:59 Range/Units Urine Color YELLOW Urine Appearance CLEAR CLEAR Urine pH 7.5 4.5-7.5 Urine Specific [place] 1.020 1.000-1.030 Urine Protein NEG NEG Urine Glucose (UA) NEG NEG Urine Ketones NEG NEG Urine Occult Blood NEG NEG Urine Nitrite NEG NEG Urine Bilirubin NEG NEG Urine Urobilinogen NEG NEG Urine Leukocyte Esterase SMALL NEG Urine WBC (Auto) 10-30 0-5 /hpf Urine RBC (Auto) 0-4 0-4 /hpf Urine Hyaline Casts (Auto) 1-5 0-5 /lpf Urine Epithelial Cells (Auto) 20-30 0-5 /lpf Urine Bacteria (Auto) NEG NEG Bedside Glucose 141 119 118 70-90 mg/dl Test 10/11/16 06:06 10/11/16 06:19 Range/Units White Blood Count 7.15 4.8-10.8 K/uL Red Blood Count 4.47 4.2-5.4 M/uL Hemoglobin 12.4 12.0-16.0 g/dL Hematocrit 38.2 37-47 % Mean Corpuscular Volume 85.5 80-100 fL Mean Corpuscular Hemoglobin 27.7 25-34 pg Mean Corpuscular Hemoglobin Concent 32.5 32-36 g/dl Platelet Count 242 130-400 K/uL Mean Platelet Volume 9.3 7.4-10.4 fL Neutrophils (%) (Auto) 57.0 % Lymphocytes (%) (Auto) 31.5 % Monocytes (%) (Auto) 7.4 % Eosinophils (%) (Auto) 3.4 % Basophils (%) (Auto) 0.3 % Neutrophils # (Auto) 4.08 1.4-6.5 K/uL Lymphocytes # (Auto) 2.25 1.2-3.4 K/uL Monocytes # (Auto) 0.53 0.11-0.59 K/uL Eosinophils # (Auto) 0.24 0-0.5 K/uL Basophils # (Auto) 0.02 0-0.2 K/uL RDW Standard Deviation 42.5 36.4-46.3 fL RDW Coefficient of Variation 13.7 11.5-14.5 % Immature Granulocyte % (Auto) 0.4 % Immature Granulocyte # (Auto) 0.03 0.00-0.02 K/uL Sodium Level 144 136-145 mmol/L Potassium Level 3.9 3.5-5.1 mmol/L Chloride Level 111 98-107 mmol/L Carbon Dioxide Level 26 21-32 mmol/L Anion Gap 7.0 3-11 mmol/L Creatinine 1.10 0.60-1.20 mg/dl Est Creatinine Clear Calc Drug Dose 49.0 ml/min Estimated GFR () 56.1 Estimated GFR (Non- 48.4 BUN/Creatinine Ratio 9.1 10-20 Random Glucose 167 70-99 mg/dl Estimated Average Glucose 143 mg/dl Hemoglobin A1c 6.6 4.5-5.6 % Calcium Level 8.5 8.5-10.1 mg/dl Bedside Glucose 183 70-90 mg/dl Assessment & Plan colovaginal fistula exam remains benign, ok to begin diet if not having colonoscopy will discuss with GI plan for outpatient follow-up
--- NOTE | 2016-10-11 09:18 | Gastroenterology Progress Note ---
Progress Note Date of Service: October 11, 2016 Subjective Pt evaluation today including: conversation w/ patient, physical exam, chart review, lab review, review of inpatient medication list Pt had [place] breakfast this AM, denies any abd pain, n/v. Still having fecal discharge from vaginal area. Also had BM this AM. Review of Systems Constitutional: No chills, No fever Respiratory: No cough, No shortness of breath Abdomen: No nausea, No pain Female : + see HPI, + vaginal discharge Medications Current Inpatient Medications Medications (Trade) Dose Ordered Sig/Rainer Route Start Time Stop Time Status Last Admin Dose Admin Ioversol 100 ml 100 ml UD PRN IV 10/10/16 00:15 10/14/16 00:14 Potassium Chloride/Dextrose/ Sod Cl (D5nss + 20meq KCl) 1,000 ml @ 60 mls/hr [id number] IV 10/10/16 03:00 11/09/16 02:59 10/10/16 20:21 60 MLS/HR Piperacillin Sod/ Tazobactam Sod (Consult) 1 ea DAILY PRN N/A 10/10/16 02:31 11/09/16 02:30 Glucose (Glucose 40% Gel) 15-30 GRAMS 15 GRAMS... UD PRN PO 10/10/16 02:30 11/09/16 02:29 Glucose (Glucose Chew Tab) 4-8 Tablets 4 Tabl... UD PRN PO 10/10/16 02:30 11/09/16 02:29 Dextrose (Dextrose 50% 50ML Syringe) 25-50ML OF 50% DW IV FOR... UD PRN IV 10/10/16 02:30 11/09/16 02:29 Glucagon (Glucagon Inj) 1 mg UD PRN SQ 10/10/16 02:30 11/09/16 02:29 Miscellaneous Information (Consult Glycemic Management Pharmacy) 1 ea DAILY PRN N/A 10/10/16 02:33 11/09/16 02:32 Clonidine HCl (Catapres Tab) 0.1 mg Q6H PRN PO 10/10/16 02:30 11/09/16 02:29 Propranolol HCl (Inderal [place]) 120 mg DAILY PO 10/10/16 09:00 11/09/16 08:59 10/10/16 09:15 120 MG Acetaminophen 650 mg 650 mg Q4H PRN PO 10/10/16 02:30 11/09/16 02:29 10/10/16 22:48 650 MG Piperacillin Sod/ Tazobactam Sod/ Dextrose (Zosyn Iv/D5 100ml) 115 ml @ 28.75 mls/ hr Q8H IV 10/10/16 06:00 10/20/16 05:59 10/11/16 06:25 28.75 MLS/HR Loperamide HCl (Imodium Cap) 2 mg UD PRN PO 10/10/16 03:45 11/09/16 03:44 10/10/16 04:05 2 MG Insulin Aspart (novoLOG ASPART) SLIDING SCALE If C... Q6 SC 10/10/16 18:00 11/09/16 17:59 10/11/16 06:27 2 UNITS Objective Vital Signs Date Time Temp Pulse Resp B/P Pulse Ox O2 Delivery O2 Flow Rate FiO2 10/11/16 08:00 Room Air 10/11/16 07:17 36.8 62 20 150/79 95 Room Air 10/11/16 00:00 Room Air 10/10/16 23:32 37.0 64 18 127/74 Room Air 10/10/16 16:00 Room Air 10/10/16 15:29 37.2 64 18 124/72 96 Room Air Physical Exam General Appearance: WD/WN, no apparent distress Eyes: normal inspection, PERRL, EOMI Neck: supple, no JVD, trachea midline Respiratory/Chest: normal breath sounds, no respiratory distress, no accessory muscle use Cardiovascular: regular rate, rhythm, no gallop, no murmur Abdomen: normal bowel sounds, non tender, soft Extremities: normal inspection, no pedal edema, no calf tenderness Neurologic/Psych: alert, normal mood/affect, oriented x 3 Skin: normal color, no jaundice, no rash Laboratory Results Last 24 Hours Test 10/10/16 11:30 10/10/16 18:40 10/10/16 23:59 10/11/16 06:06 Bedside Glucose 141 mg/dl 119 mg/dl 118 mg/dl White Blood Count 7.15 K/uL Red Blood Count 4.47 M/uL Hemoglobin 12.4 g/dL Hematocrit 38.2 % Mean Corpuscular Volume 85.5 fL Mean Corpuscular Hemoglobin 27.7 pg Mean Corpuscular Hemoglobin Concent 32.5 g/dl Platelet Count 242 K/uL Mean Platelet Volume 9.3 fL Neutrophils (%) (Auto) 57.0 % Lymphocytes (%) (Auto) 31.5 % Monocytes (%) (Auto) 7.4 % Eosinophils (%) (Auto) 3.4 % Basophils (%) (Auto) 0.3 % Neutrophils # (Auto) 4.08 K/uL Lymphocytes # (Auto) 2.25 K/uL Monocytes # (Auto) 0.53 K/uL Eosinophils # (Auto) 0.24 K/uL Basophils # (Auto) 0.02 K/uL RDW Standard Deviation 42.5 fL RDW Coefficient of Variation 13.7 % Immature Granulocyte % (Auto) 0.4 % Immature Granulocyte # (Auto) 0.03 K/uL Sodium Level 144 mmol/L Potassium Level 3.9 mmol/L Chloride Level 111 mmol/L Carbon Dioxide Level 26 mmol/L Anion Gap 7.0 mmol/L Blood Urea Nitrogen 10 mg/dl Creatinine 1.10 mg/dl Est Creatinine Clear Calc Drug Dose 49.0 ml/min Estimated GFR () 56.1 Estimated GFR (Non- 48.4 BUN/Creatinine Ratio 9.1 Random Glucose 167 mg/dl Estimated Average Glucose 143 mg/dl Hemoglobin A1c 6.6 % Calcium Level 8.5 mg/dl Test 10/11/16 06:19 Bedside Glucose 183 mg/dl Assessment and Plan Impression Patient is a 76 year old female w passage of stool in vagina last night, CT abd/ pelvis showed sigmoid diverticulitis & 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 Plan - Discussed w Surgery team, no emergent procedure planned.Ok for outpt surgery once colonoscopy is completed. Will plan on outpt colonoscopy in 2 week's time then pt to f/u w Surgery. Plan discussed w Dr. Carlos Soto for DC from GI standpoint. Pls give outpt antibx of Cipro/Flagyl x 10 days. I have seen and examined the patient with Paige Mayorga whose note reflects our findings and plan.
[2016-10-11] MEDS: PROPRANOLOL HCL 60 MG LA CAP PO SCH (10:10)
[2016-10-11] MEDS: LOPERAMIDE HCL 2 MG CAP PO PRN (12:34)
[2016-10-11] MEDS: D5NSS + 20MEQ KCL 1,000 ML IV SCH (12:47)
--- NOTE | 2016-10-11 13:18 | Pharmacy Progress Note ---
Glycemic Control: Progress Nt Date of Service October 11, 2016. Scope Glycemic Pharmacist consulted by Dr Rothman on 10/10/16 for glycemic control and to write orders per [facility] inpatient glycemic control protocol. Objective Accuchecks BSG (last 24hrs): Test 10/10/16 18:40 10/10/16 23:59 10/11/16 06:06 10/11/16 06:19 Bedside Glucose 119 mg/dl (70-90) 118 mg/dl (70-90) 183 mg/dl (70-90) Random Glucose 167 mg/dl (70-99) Test 10/11/16 11:31 Bedside Glucose 152 mg/dl (70-90) Laboratory Data (last 24hrs) Test 10/11/16 06:06 Anion Gap 7.0 mmol/L BUN/Creatinine Ratio 9.1 Blood Urea Nitrogen 10 mg/dl Creatinine 1.10 mg/dl Hemoglobin A1c 6.6 % Potassium Level 3.9 mmol/L Sodium Level 144 mmol/L White Blood Count 7.15 K/uL Red Blood Count 4.47 M/uL Hemoglobin 12.4 g/dL Hematocrit 38.2 % Mean Corpuscular Volume 85.5 fL Mean Corpuscular Hemoglobin 27.7 pg Mean Corpuscular Hemoglobin Concent 32.5 g/dl Platelet Count 242 K/uL Mean Platelet Volume 9.3 fL Neutrophils (%) (Auto) 57.0 % Lymphocytes (%) (Auto) 31.5 % Monocytes (%) (Auto) 7.4 % Eosinophils (%) (Auto) 3.4 % Basophils (%) (Auto) 0.3 % Neutrophils # (Auto) 4.08 K/uL Lymphocytes # (Auto) 2.25 K/uL Monocytes # (Auto) 0.53 K/uL Eosinophils # (Auto) 0.24 K/uL Basophils # (Auto) 0.02 K/uL HbA1c: Test 10/11/16 06:06 Hemoglobin A1c 6.6 %(4.5-5.6) H Recent Pertinent Medications Outpatient Anti-diabetic Regimen: * glyburide 5mg PO daily * metformin 500mg PO BID * A1c = 6.6 % 10/11/16 The patient is currently receiving: * Basal insulin: * none at this time * Bolus Insulin: * NovoLog SQ AC/HS - Goal Range: Low 110 mg/dL - High 150 mg/dL - Correction Factor: 30 mg/dL/unit - Carb ratio of 1 unit per 20 grams CHO consumed * Oral Agents: * held on admission Risk Factors for Insulin Resistance: * Infection: Zosyn IV (mixed in dextrose) * IVF: D5WNS+20mEq KCl @ 60mL/hr * Diet: NPO --> Full liquid Assessment & Plan ASSESSMENT: * ADA & AACE recommend a goal blood sugar range 140-180 mg/dl for the majority of critically ill & non-critically ill patients. However, more stringent targets may be selected in individual cases. Lower goal range utilized as Ms Mullen enjoys good glycemic control as an outpatient and is not in the ICU. 10/11/16 * BSGs well controlled yesterday with minimal insulin administration and IV dextrose infusion * Today, BSGs slightly elevated and diet advanced - likely will see the need for increased insulin doses (especially since PO meds held on admission) PLAN FOR INPATIENT GLYCEMIC CONTROL: * Basal insulin: * begin Lantus SQ BID - 0 units if BSG is below 100mg/dL - 5 units if BSG is 100-140mg/dL - 10 units if BSG is above 140mg/dL * Bolus insulin: * NovoLog SQ AC and HS - Correction factor: 20mg/dL/unit - Carb ratio: tighten to 1 unit per 10 g of CHO consumed - Goal range: 110-150mg/dL per above * Oral medications: * may consider resumption once PO intake adequately established (tomorrow?) * A1c - current * added to discharge instructions RECOMMENDATIONS FOR DISCHARGE: * Likely, Ms Mullen can continue home regimen at discharge given A1c of 6.6% * Please note that the plan above was derived based on current level of insulin resistance and hospital stress. These recommendations are appropriate for inpatient admission only. Plan of care upon discharge will need to be reassessed to avoid potential outpatient hypo/hyperglycemia. Thank you.
--- NOTE | 2016-10-11 14:15 | Urology Consultation ---
History General Date of Service: October 11, 2016. Chief Complaint: right hydronephrosis Primary Care Physician: Tasneem Rosa M.D. Pt seen a urologist before?: No History of Present Illness I am asked by Dr Jay to evaluate and treat patient for right hydronephrosis. She presented to ER with rectovaginal fistula. Some abd pain a dn pressure preceeded it. She feels fine now. Ct shows the fistula and diverticulosis. No white count no fever. mild right hydro nephrosis and hydroureter above the inflamed colon. Imaging Imaging: CT Laboratory Results Past 24 Hours Test 10/10/16 18:40 10/10/16 23:59 10/11/16 06:06 10/11/16 06:19 Range/Units Bedside Glucose 119 118 183 70-90 mg/dl White Blood Count 7.15 4.8-10.8 K/uL Red Blood Count 4.47 4.2-5.4 M/uL Hemoglobin 12.4 12.0-16.0 g/dL Hematocrit 38.2 37-47 % Mean Corpuscular Volume 85.5 80-100 fL Mean Corpuscular Hemoglobin 27.7 25-34 pg Mean Corpuscular Hemoglobin Concent 32.5 32-36 g/dl Platelet Count 242 130-400 K/uL Mean Platelet Volume 9.3 7.4-10.4 fL Neutrophils (%) (Auto) 57.0 % Lymphocytes (%) (Auto) 31.5 % Monocytes (%) (Auto) 7.4 % Eosinophils (%) (Auto) 3.4 % Basophils (%) (Auto) 0.3 % Neutrophils # (Auto) 4.08 1.4-6.5 K/uL Lymphocytes # (Auto) 2.25 1.2-3.4 K/uL Monocytes # (Auto) 0.53 0.11-0.59 K/uL Eosinophils # (Auto) 0.24 0-0.5 K/uL Basophils # (Auto) 0.02 0-0.2 K/uL RDW Standard Deviation 42.5 36.4-46.3 fL RDW Coefficient of Variation 13.7 11.5-14.5 % Immature Granulocyte % (Auto) 0.4 % Immature Granulocyte # (Auto) 0.03 0.00-0.02 K/uL Sodium Level 144 136-145 mmol/L Potassium Level 3.9 3.5-5.1 mmol/L Chloride Level 111 98-107 mmol/L Carbon Dioxide Level 26 21-32 mmol/L Anion Gap 7.0 3-11 mmol/L Blood Urea Nitrogen 10 7-18 mg/dl Creatinine 1.10 0.60-1.20 mg/dl Est Creatinine Clear Calc Drug Dose 49.0 ml/min Estimated GFR () 56.1 Estimated GFR (Non- 48.4 BUN/Creatinine Ratio 9.1 10-20 Random Glucose 167 70-99 mg/dl Estimated Average Glucose 143 mg/dl Hemoglobin A1c 6.6 4.5-5.6 % Calcium Level 8.5 8.5-10.1 mg/dl Test 10/11/16 11:31 Range/Units Bedside Glucose 152 70-90 mg/dl Labs were reviewed and are within normal limits unless listed below. Labs are available in the chart and at [facility] Problem List Medical Problems: (1) Rectal vaginal fistula Status: Acute (2) Sigmoid diverticulitis Status: Acute Past History diabetes, hypertension Past Surgical History: hysterectomy Family History Cancer Diabetes mellitus Heart disease Hypertension Kidney disease Kidney stones Social History Hx Tobacco Use In Past Year?: No Smoking: non-smoker Alcohol: never Marital status: Housing status: lives alone Occupation status: retired Allergies Coded Allergies: No Known Allergies (Unverified , 10/09/16) Medications Home Medications: Home Meds and Scripts Medications Dose Route/Sig Max Daily Dose Days Date Category Inderal La (Propranolol HCl) 120 Mg Capcr 120 Mg PO DAILY 10/09/16 Reported Micronase (Glyburide) 5 Mg Tab 5 Mg PO DAILY 10/09/16 Reported Glucophage (Metformin Hcl) 500 Mg Tab 500 Mg PO BID 10/09/16 Reported Zocor (Simvastatin) Unknown Strength Tab 1 Tab PO HS 10/09/16 Reported Aspirin 81 (Aspirin) 81 Mg Tab 81 Mg PO DAILY 10/09/16 Reported Inpatient Medications: Current Inpatient Medications Medications (Trade) Dose Ordered Sig/Rainer Route Start Time Stop Time Status Last Admin Dose Admin Ioversol 100 ml 100 ml UD PRN IV 10/10/16 00:15 10/14/16 00:14 Potassium Chloride/Dextrose/ Sod Cl (D5nss + 20meq KCl) 1,000 ml @ 60 mls/hr [id number] IV 10/10/16 03:00 11/09/16 02:59 10/11/16 12:47 60 MLS/HR Piperacillin Sod/ Tazobactam Sod (Consult) 1 ea DAILY PRN N/A 10/10/16 02:31 11/09/16 02:30 Glucose (Glucose 40% Gel) 15-30 GRAMS 15 GRAMS... UD PRN PO 10/10/16 02:30 11/09/16 02:29 Glucose (Glucose Chew Tab) 4-8 Tablets 4 Tabl... UD PRN PO 10/10/16 02:30 11/09/16 02:29 Dextrose (Dextrose 50% 50ML Syringe) 25-50ML OF 50% DW IV FOR... UD PRN IV 10/10/16 02:30 11/09/16 02:29 Glucagon (Glucagon Inj) 1 mg UD PRN SQ 10/10/16 02:30 11/09/16 02:29 Miscellaneous Information (Consult Glycemic Management Pharmacy) 1 ea DAILY PRN N/A 10/10/16 02:33 11/09/16 02:32 Clonidine HCl (Catapres Tab) 0.1 mg Q6H PRN PO 10/10/16 02:30 11/09/16 02:29 Propranolol HCl (Inderal La Cap) 120 mg DAILY PO 10/10/16 09:00 11/09/16 08:59 10/11/16 10:10 120 MG Acetaminophen 650 mg 650 mg Q4H PRN PO 10/10/16 02:30 11/09/16 02:29 10/10/16 22:48 650 MG Piperacillin Sod/ Tazobactam Sod/ Dextrose (Zosyn Iv/D5 100ml) 115 ml @ 28.75 mls/ hr Q8H IV 10/10/16 06:00 10/20/16 05:59 10/11/16 06:25 28.75 MLS/HR Loperamide HCl (Imodium Cap) 2 mg UD PRN PO 10/10/16 03:45 11/09/16 03:44 10/11/16 12:34 2 MG Insulin Aspart (novoLOG ASPART) SLIDING SCALE If C... ACHS SC 10/11/16 16:30 11/10/16 16:29 Insulin Glargine (Lantus Per Unit) SEE PROTOCOL BID SQ 10/11/16 21:00 11/10/16 20:59 Review of Systems Review of Systems Constitutional: No chills Endocrine: No excessive thirst, No tired/sluggish, No too cold, No too hot Gastrointestinal: + abdominal pain, No constipation Cardiovascular: No chest pain, No palpitations Female : + infections, No frequent urination, No painful urination Physical Exam Vital Signs: Vital Signs Past 12 Hours Date Time Temp Pulse Resp B/P Pulse Ox O2 Delivery O2 Flow Rate FiO2 10/11/16 08:00 Room Air 10/11/16 07:17 36.8 62 20 150/79 95 Room Air Physical Exam: General Appearance: WD/WN, no apparent distress, + obese Eyes: bilateral eyes normal inspection ENT: hearing grossly normal Neurologic/Psychiatric: alert, normal mood/affect, oriented x 3 Skin: normal color, warm/dry, no rash Assessment & Plan Assessment & Plan mild right hydronephrosis I dont think it needs a stent at this time I reviewed the ct. I think the inflammation from the bowels infection is compressing the mid right ureter. It can be reassessed a few weeks post-op for stability. I spoke with Carlos and he will discuss with Dr Mukherjee if he will want intra- op stents when the colectomy is done.
[2016-10-11 15:08] VITALS: BP 155/68; PULSE 64; TEMP 36.9; O2SAT 95
[2016-10-11 16:00] VITALS: O2SAT 95
[2016-10-11] MEDS: LANTUS PER UNIT CHARGE SQ SCH (21:00)
[2016-10-11] MEDS ORDERED: LANTUS PER UNIT CHARGE SQ STA (22:02)
--- NOTE | 2016-10-11 23:58 | Progress Note ---
Medicine Progress Note Date & Time of Visit: October 11, 2016 at 18:40 . Subjective Doing well. Started on full liquid diet. No fever or chills. No chest pain. No cough or shortness of breath. No abdominal pain, nausea, vomiting, diarrhea, hematochezia. No urinary symptoms. Persistent vaginal discharge. . Objective Last 8 Hrs Date Time Temp Pulse Resp B/P Pulse Ox O2 Delivery O2 Flow Rate FiO2 10/11/16 16:00 95 Room Air Physical Exam: General- lying in bed, no distress Lungs- clear Heart- regular rate and rhythm Abdomen- + bowel sounds, soft, nondistended, nontender Extremities- no pretibial edema or calf tenderness Neuro- alert, oriented . Laboratory Results: Last 24 Hours Test 10/10/16 23:59 10/11/16 06:06 10/11/16 06:19 10/11/16 11:31 Bedside Glucose 118 mg/dl 183 mg/dl 152 mg/dl White Blood Count 7.15 K/uL Red Blood Count 4.47 M/uL Hemoglobin 12.4 g/dL Hematocrit 38.2 % Mean Corpuscular Volume 85.5 fL Mean Corpuscular Hemoglobin 27.7 pg Mean Corpuscular Hemoglobin Concent 32.5 g/dl Platelet Count 242 K/uL Mean Platelet Volume 9.3 fL Neutrophils (%) (Auto) 57.0 % Lymphocytes (%) (Auto) 31.5 % Monocytes (%) (Auto) 7.4 % Eosinophils (%) (Auto) 3.4 % Basophils (%) (Auto) 0.3 % Neutrophils # (Auto) 4.08 K/uL Lymphocytes # (Auto) 2.25 K/uL Monocytes # (Auto) 0.53 K/uL Eosinophils # (Auto) 0.24 K/uL Basophils # (Auto) 0.02 K/uL RDW Standard Deviation 42.5 fL RDW Coefficient of Variation 13.7 % Immature Granulocyte % (Auto) 0.4 % Immature Granulocyte # (Auto) 0.03 K/uL Sodium Level 144 mmol/L Potassium Level 3.9 mmol/L Chloride Level 111 mmol/L Carbon Dioxide Level 26 mmol/L Anion Gap 7.0 mmol/L Blood Urea Nitrogen 10 mg/dl Creatinine 1.10 mg/dl Est Creatinine Clear Calc Drug Dose 49.0 ml/min Estimated GFR () 56.1 Estimated GFR (Non- 48.4 BUN/Creatinine Ratio 9.1 Random Glucose 167 mg/dl Estimated Average Glucose 143 mg/dl Hemoglobin A1c 6.6 % Calcium Level 8.5 mg/dl Test 10/11/16 18:17 10/11/16 20:26 Bedside Glucose 198 mg/dl 163 mg/dl Assessment & Plan APPARENT DIVERTICULITIS CT findings consistent with sigmoid diverticulitis, although other pathology must be considered. GI and General Surgery consulted. Treatment for acute diverticulitis with bowel rest, IV fluids, and IV antibiotics recommended. Endoscopic evaluation recommended after course of antibiotic therapy. Started on full liquid diet; advance as tolerated. Transition to oral antibiotics. VAGINAL DISCHARGE Patient presented with feculent vaginal discharge. CT suggested colovaginal fistula due to underlying diverticulitis or other pathology. HYPERTENSION Blood pressure elevated at time of admission, subsequently improved. Continue propranolol. DIABETES MELLITUS TYPE 2 Pharmacy consulted for glycemic management. VTE PROPHYLAXIS No anticoagulants in case surgical intervention necessary. SCD's. Ambulate. DISPOSITION Expected discharge to home. Family Medicine follow-up with Dr. Rosa. . Current Inpatient Medications: Current Inpatient Medications Medications (Trade) Dose Ordered Sig/Rainer Route Start Time Stop Time Status Last Admin Dose Admin Ioversol (Optiray 320) 100 ml UD PRN IV 10/10/16 00:15 10/14/16 00:14 Piperacillin Sod/ Tazobactam Sod (Consult) 1 ea DAILY PRN N/A 10/10/16 02:31 11/09/16 02:30 Glucose (Glucose 40% Gel) 15-30 GRAMS 15 GRAMS... UD PRN PO 10/10/16 02:30 11/09/16 02:29 Glucose (Glucose Chew Tab) 4-8 Tablets 4 Tabl... UD PRN PO 10/10/16 02:30 11/09/16 02:29 Dextrose (Dextrose 50% 50ML Syringe) 25-50ML OF 50% DW IV FOR... UD PRN IV 10/10/16 02:30 11/09/16 02:29 Glucagon (Glucagon Inj) 1 mg UD PRN SQ 10/10/16 02:30 11/09/16 02:29 Miscellaneous Information (Consult Glycemic Management Pharmacy) 1 ea DAILY PRN N/A 10/10/16 02:33 11/09/16 02:32 Clonidine HCl (Catapres Tab) 0.1 mg Q6H PRN PO 10/10/16 02:30 11/09/16 02:29 Propranolol HCl (Inderal La Cap) 120 mg DAILY PO 10/10/16 09:00 11/09/16 08:59 10/11/16 10:10 120 MG Acetaminophen 650 mg 650 mg Q4H PRN PO 10/10/16 02:30 11/09/16 02:29 10/10/16 22:48 650 MG Piperacillin Sod/ Tazobactam Sod/ Dextrose (Zosyn Iv/D5 100ml) 115 ml @ 28.75 mls/ hr Q8H IV 10/10/16 06:00 10/20/16 05:59 10/11/16 21:40 28.75 MLS/HR Loperamide HCl (Imodium Cap) 2 mg UD PRN PO 10/10/16 03:45 11/09/16 03:44 10/11/16 12:34 2 MG Insulin Aspart (novoLOG ASPART) SLIDING SCALE If C... ACHS SC 10/11/16 16:30 11/10/16 16:29 10/11/16 21:49 1 UNITS Insulin Glargine (Lantus Per Unit) SEE PROTOCOL BID SQ 10/11/16 21:00 11/10/16 20:59
[2016-10-12 00:05] VITALS: O2SAT 96
[2016-10-12 00:17] VITALS: BP 114/82; PULSE 58; TEMP 36.7; O2SAT 96
[2016-10-12] MEDS: ACETAMINOPHEN 325 MG TAB PO PRN (07:29)
[2016-10-12] MEDS: PROPRANOLOL HCL 60 MG LA CAP PO SCH (07:30)
[2016-10-12 07:56] LABS: BASO % 0.4 %; BASO ABS # 0.02 K/uL (0-0.2); COMPLETE YES; EOS % 3.7 %; HEMATOCRIT 34.8 % (37-47); IG% 0.7 %; LYMPH % 31.2 %; LYMPH ABS # 1.42 K/uL (1.2-3.4); MEAN CELL VOLUME 84.7 fL (80-100); MEAN CORPUSCULAR HEMOGLOBIN 27.7 pg (25-34); MEAN CORPUSCULAR HGB CONC 32.8 g/dl (32-36); MEAN PLATELET VOLUME 8.9 fL (7.4-10.4); MONO % 6.8 %; NEUT % 57.2 %; PLATELET COUNT 190 K/uL (130-400); RED BLOOD COUNT 4.11 M/uL (4.2-5.4); WHITE BLOOD COUNT 4.55 K/uL (4.8-10.8)
[2016-10-12 07:59] VITALS: BP 165/71; PULSE 56; TEMP 36.3; O2SAT 98
[2016-10-12 08:29] LABS: BUN/CREATININE RATIO 6.8 (10-20); POTASSIUM 3.7 mmol/L (3.5-5.1)
[2016-10-12 08:48] LABS: CALCIUM 8.7 mg/dl (8.5-10.1)
[2016-10-12] MEDS: AMOXICILLIN/CLAVULANATE TAB 875 MG TAB PO SCH ×2 (08:52→18:31)
[2016-10-12] MEDS: INSULIN ASPART 100 UNITS/ML 3 ML PEN SC SCH ×3 (08:55→18:33)
[2016-10-12] MEDS: LANTUS PER UNIT CHARGE SQ SCH (08:56)
--- NOTE | 2016-10-12 10:01 | Pharmacy Progress Note ---
Glycemic Control: Progress Nt Date of Service Oct 12, 2016. Scope Glycemic Pharmacist consulted by Dr Rothman on 10/10/16 for glycemic control and to write orders per [facility] inpatient glycemic control protocol. Objective Accuchecks BSG (last 24hrs): Test 10/11/16 11:31 10/11/16 18:17 10/11/16 20:26 10/12/16 07:20 Bedside Glucose 152 mg/dl (70-90) 198 mg/dl (70-90) 163 mg/dl (70-90) 127 mg/dl (70-90) Test 10/12/16 07:39 Random Glucose 128 mg/dl (70-99) Laboratory Data (last 24hrs) Test 10/12/16 07:39 Anion Gap 9.0 mmol/L BUN/Creatinine Ratio 6.8 Blood Urea Nitrogen 7 mg/dl Creatinine 1.00 mg/dl Potassium Level 3.7 mmol/L Sodium Level 143 mmol/L White Blood Count 4.55 K/uL Red Blood Count 4.11 M/uL Hemoglobin 11.4 g/dL Hematocrit 34.8 % Mean Corpuscular Volume 84.7 fL Mean Corpuscular Hemoglobin 27.7 pg Mean Corpuscular Hemoglobin Concent 32.8 g/dl Platelet Count 190 K/uL Mean Platelet Volume 8.9 fL Neutrophils (%) (Auto) 57.2 % Lymphocytes (%) (Auto) 31.2 % Monocytes (%) (Auto) 6.8 % Eosinophils (%) (Auto) 3.7 % Basophils (%) (Auto) 0.4 % Neutrophils # (Auto) 2.60 K/uL Lymphocytes # (Auto) 1.42 K/uL Monocytes # (Auto) 0.31 K/uL Eosinophils # (Auto) 0.17 K/uL Basophils # (Auto) 0.02 K/uL HbA1c: Test 10/11/16 06:06 Hemoglobin A1c 6.6 % (4.5-5.6) H Recent Pertinent Medications Outpatient Anti-diabetic Regimen: * glyburide 5mg PO daily * metformin 500mg PO BID Risk Factors for Insulin Resistance: * Infection: Zosyn changed to Augmentin PO * IVF: Dextrose containing fluids D/C'd * Diet: Advanced to T2DM/AHA Assessment & Plan ASSESSMENT: * 76 yo F admitted with retrovaginal fistula on 10/10/16, initiated on Zosyn for acute diverticulitis and made NPO for bowl rest * Patient is currently receiving an average of 7 units of insulin per day * 0 units of basal insulin * 5 units of prandial/correctional insulin * BSGs ranging 152 - 183 over the past 24hrs * Risk factors for insulin resistance are decreasing over the past 24hrs * Zosyn changed to PO augmentin * Dextrose containing IVF D/C * Basal insulin was ordered if BSGs >120 mg/dL, 5 units total given this morning * I don't see the need to keep basal insulin given change in risk factors for hyperglycemic; DC Lantus * Continue current CF/CR and reassess tomorrow if patient remains admitted * ADA & AACE recommend a goal blood sugar range 140-180 mg/dl for the majority of critically ill & non-critically ill patients. However, more stringent targets may be selected in individual cases. Will utilize more stringent goal of 100-140mg/dl based on patient's good outpatient glycemic control as evidenced by A1c 6.6%. PLAN FOR INPATIENT GLYCEMIC CONTROL: * Continue to hold Glipizide until discharge * Restart Metformin tomorrow if diet is tolerated today * D/C basal insulin * Correctional Insulin with NOVOLOG per scale ACHS or Q6hrs while NPO * Goal Range: Low 100 mg/dL - High 140 mg/dL * Correction Factor: 30 mg/dL/unit * Nutritional / Prandial insulin per carb ratio of 1 unit per 10 grams CHO consumed RECOMMENDATIONS FOR DISCHARGE: * Continue home regimen * Please note that the plan above was derived based on current level of insulin resistance and hospital stress. These recommendations are appropriate for inpatient admission only. Plan of care upon discharge will need to be reassessed to avoid potential outpatient hypo/hyperglycemia. Thank you.
[2016-10-12 15:13] VITALS: BP 151/76; PULSE 62; TEMP 36.8; O2SAT 97
--- NOTE | 2016-10-12 18:50 | Progress Note ---
Medicine Progress Note Date & Time of Visit: Oct 12, 2016 at 18:49 . Subjective Doing well. Tolerating diet. No fever, chills. No abdominal pain, nausea, vomiting, diarrhea, hematochezia. Ambulating. . Objective Last 8 Hrs Date Time Temp Pulse Resp B/P (MAP) Pulse Ox O2 Delivery O2 Flow Rate FiO2 10/12/16 16:00 Room Air 10/12/16 15:13 36.8 62 18 151/76 (101) 97 Room Air Physical Exam: General- no distress Lungs- clear Heart- RRR Abdomen- + bowel sounds, soft, nondistended, nontender Extremities- no pretibial edema or calf tenderness Neuro- alert, oriented . Laboratory Results: Last 24 Hours Test 10/11/16 20:26 10/12/16 07:20 10/12/16 07:39 10/12/16 11:29 Bedside Glucose 163 mg/dl 127 mg/dl 122 mg/dl White Blood Count 4.55 K/uL Red Blood Count 4.11 M/uL Hemoglobin 11.4 g/dL Hematocrit 34.8 % Mean Corpuscular Volume 84.7 fL Mean Corpuscular Hemoglobin 27.7 pg Mean Corpuscular Hemoglobin Concent 32.8 g/dl Platelet Count 190 K/uL Mean Platelet Volume 8.9 fL Neutrophils (%) (Auto) 57.2 % Lymphocytes (%) (Auto) 31.2 % Monocytes (%) (Auto) 6.8 % Eosinophils (%) (Auto) 3.7 % Basophils (%) (Auto) 0.4 % Neutrophils # (Auto) 2.60 K/uL Lymphocytes # (Auto) 1.42 K/uL Monocytes # (Auto) 0.31 K/uL Eosinophils # (Auto) 0.17 K/uL Basophils # (Auto) 0.02 K/uL RDW Standard Deviation 41.2 fL RDW Coefficient of Variation 13.5 % Immature Granulocyte % (Auto) 0.7 % Immature Granulocyte # (Auto) 0.03 K/uL Sodium Level 143 mmol/L Potassium Level 3.7 mmol/L Chloride Level 110 mmol/L Carbon Dioxide Level 24 mmol/L Anion Gap 9.0 mmol/L Blood Urea Nitrogen 7 mg/dl Creatinine 1.00 mg/dl Est Creatinine Clear Calc Drug Dose 53.9 ml/min Estimated GFR () 62.9 Estimated GFR (Non- 54.3 BUN/Creatinine Ratio 6.8 Random Glucose 128 mg/dl Calcium Level 8.7 mg/dl Test 10/12/16 18:41 Bedside Glucose 190 mg/dl Assessment & Plan APPARENT DIVERTICULITIS Presented with feculent vaginal discharge. CT findings consistent with sigmoid diverticulitis, although other pathology must be considered. GI and General Surgery consulted. Treated for acute diverticulitis with bowel rest, IV fluids, and IV antibiotics. Started on full liquid diet; and diet advanced without difficulty. Transitioned to oral antibiotics. Colonoscopy planned after treatment for diverticulitis with subsequent follow- up with General Surgery. VAGINAL DISCHARGE Patient presented with feculent vaginal discharge. CT suggested colovaginal fistula due to underlying diverticulitis or other pathology. HYPERTENSION Blood pressure elevated at time of admission, subsequently improved. Continue propranolol. DIABETES MELLITUS TYPE 2 Well-controlled. Hgb A1C = 6.6. Pharmacy consulted for glycemic management. Received Lantus + NovoLog per protocol. Discharge on usual regimen. VTE PROPHYLAXIS Anticoagulants not utilized in case surgical intervention necessary. SCD's. Ambulate. DISPOSITION Discharge to home. Family Medicine follow-up with Dr. Rosa. Outpatient colonoscopy with [facility]. General Surgery follow-up with Dr. Portillo. . Current Inpatient Medications: Current Inpatient Medications Medications (Trade) Dose Ordered Sig/Rainer Route Start Time Stop Time Status Last Admin Dose Admin Ioversol (Optiray 320) 100 ml UD PRN IV 10/10/16 00:15 10/14/16 00:14 Glucose (Glucose 40% Gel) 15-30 GRAMS 15 GRAMS... UD PRN PO 10/10/16 02:30 11/09/16 02:29 Glucose (Glucose Chew Tab) 4-8 Tablets 4 Tabl... UD PRN PO 10/10/16 02:30 11/09/16 02:29 Dextrose (Dextrose 50% 50ML Syringe) 25-50ML OF 50% DW IV FOR... UD PRN IV 10/10/16 02:30 11/09/16 02:29 Glucagon (Glucagon Inj) 1 mg UD PRN SQ 10/10/16 02:30 11/09/16 02:29 Miscellaneous Information (Consult Glycemic Management Pharmacy) 1 ea DAILY PRN N/A 10/10/16 02:33 11/09/16 02:32 Clonidine HCl (Catapres Tab) 0.1 mg Q6H PRN PO 10/10/16 02:30 11/09/16 02:29 Propranolol HCl (Inderal La Cap) 120 mg DAILY PO 10/10/16 09:00 11/09/16 08:59 10/12/16 07:30 120 MG Acetaminophen (Tylenol Tab) 650 mg Q4H PRN PO 10/10/16 02:30 11/09/16 02:29 10/12/16 07:29 650 MG Loperamide HCl (Imodium Cap) 2 mg UD PRN PO 10/10/16 03:45 11/09/16 03:44 10/11/16 12:34 2 MG Insulin Aspart (novoLOG ASPART) SLIDING SCALE If C... ACHS SC 10/11/16 16:30 11/10/16 16:29 10/12/16 18:33 5 UNITS Amoxicillin/ Clavulanate Potassium (Augmentin Tab) 875 mg BIDM PO 10/12/16 08:00 10/22/16 07:59 10/12/16 18:31 875 MG
[2016-10-12] MEDS ORDERED: GLIM4TAB PO (18:57)
[2016-10-12] MEDS ORDERED: SIMV20TA2 PO (18:57)
[2016-10-12] MEDS ORDERED: VTMD1000 PO (18:57)
[2016-10-12] MEDS ORDERED: ULT50X PO (18:57)
[2016-10-12] MEDS ORDERED: AMOX875T PO (19:00)
--- NOTE | 2016-10-12 19:04 | Discharge Instructions ---
Discharge Instructions Date of Service Oct 12, 2016. Admission Reason for Admission: vaginal discharge . Discharge Discharge Diagnosis / Problem: probable diverticulitis with connection between bowel and vagina Discharge Goals Goal(s): Decrease discomfort, Increase independence, Improve disease control Activity Recommendations Activity Limitations: resume your previous activity . Instructions / Follow-Up Instructions / Follow-Up APPOINTMENTS: FAMILY MEDICINE Dr. cabral's office will call you with appointment. GASTROENTEROLOGY [facility] will call you with appointment for colonoscopy. GENERAL SURGERY Dr. Portillo. Please call his office for appointment about 1 week after your colonoscopy. INSTRUCTIONS: New medications: amoxicillin / clavulanic acid 875 mg twice a day with food for 7 days (antibiotic to treat diverticulitis) Prescription sent to [facility]. Seek medical attention if you have: * temperature above 101 * chest pain or trouble breathing * abdominal pain, nausea, vomiting * diarrhea, dark stools or bloody stools * any unanswered questions or concerns Call 911 if symptoms are severe. Call if you have any questions or problems. My cell # is [phone]. You can also reach a [facility] hospitalist on duty at [facility] 24 hours a day by calling [phone]. Please take good care of yourself. Tylor Vinson . Current Hospital Diet Patient's current hospital diet: AHA Diet (Heart Healthy), Diabetes Type 2 Diet , Low Fiber Diet Discharge Diet Recommended Diet: AHA Diet (Heart Healthy), Diabetes Type 2 Diet, Low Fiber Diet (low fiber diet for 4 weeks) Pending Studies Studies pending at discharge: no Laboratory Results Hemoglobin A1c Test 10/11/16 06:06 Range/Units Estimated Average Glucose 143 mg/dl Hemoglobin A1c 6.6 H 4.5-5.6 % Medical Emergencies . Who to Call and When: Medical Emergencies: If at any time you feel your situation is an emergency, please call 911 immediately. . Non-Emergent Contact Non-Emergency issues call your: Primary Care Provider, Hospital Doctor . . "Provider Documentation" section prepared by Tylor Vinson. . VTE Core Measure Inpt VTE Proph given/why not?: SCD's
[2016-10-12 19:15] VITALS: BP 151/76; PULSE 62; TEMP 36.8; O2SAT 97
[2016-10-12] MEDS ORDERED: AMOXICIL/CLAVU 875MG HOME PACK PO ONE (21:00)
[2016-10-13] MEDS ORDERED: AMOXICILLIN/CLAVULANATE TAB 875 MG TAB PO SCH (06:00)
--- NOTE | 2016-10-13 23:51 | Discharge Summary ---
Discharge Summary Date of Service Oct 13, 2016. Discharge Summary Admission Date: October 10, 2016 at 02:13 Discharge Date: Oct 12, 2016 Discharge Disposition: Home Principal Diagnosis: sigmoid diverticulitis with rectovaginal fistula . Secondary Diagnoses/Problems: Chronic Medical Problems: (1) Hypertension Status: Chronic (2) Type 2 diabetes mellitus Status: Chronic . Procedures: CT abdomen IV fluids IV meds . Consultations: GI with MICHAEL Ruiz. and Dr. Gonzalez. General Surgery with Brayden Ott and Dr. Portillo. . Medication Reconciliation New Medications: Amoxicillin & Pot Clavulanate (Augmentin 875-125 mg) 1 Tab Tab 875 MG PO BID, #14 TAB take with breakfast and supper Continued Medications: Aspirin (Aspirin 81) 81 Mg Tab 81 MG PO DAILY Cholecalciferol (Vitamin D3) 1,000 Inter.unit Tab 1000 UNITS PO DAILY Glimepiride (Amaryl) 4 Mg Tab 4 MG PO DAILY, TAB Metformin Hcl (Glucophage) 500 Mg Tab 500 MG PO BID, TAB Propranolol La (Inderal La) 120 Mg Capcr 120 MG PO DAILY, CAP Simvastatin (Zocor) 20 Mg Tab 20 MG PO HS, TAB Tramadol HCl (Tramadol HCl) 50 Mg Tab 50 MG PO Q6H PRN for Pain Admission Information HPI (per Admitting provider): 76 year old female with history of DM Type 2 on oral medications, Hypertension, CKD 3 and Paroxysmal Atrial Tachycardia presenting with passage of feces from the vagina noted this evening. Follows with Dr. Cabral for Primary Care. Patient was at her usual state of health until this evening, while taking a shower, patient noted fecal matter coming from the vagina. She denies abdominal pain, diarrhea, fever/chills, nausea/vomiting. Patient then went to the ER for evaluation. Patient was received with BP of 188/7, HR 71, afebrile. CT abdomen/pelvis: possible sigmoid diverticulitis, rectosigmoid fistula, right hydronephrosis General Surgeon Dr. Portillo consulted. On my exam, patient was resting in bed, comfortable. She reports that she continues to have passage of fecal matter from the vagina. Denies chills, abdominal pain, nausea/vomiting. No changes with urination. Denies other symptoms. . Physical Exam (per Admitting): General Appearance: WD/WN, no apparent distress Head: normocephalic, atraumatic Eyes: normal inspection, EOMI, sclerae normal ENT: normal ENT inspection, hearing grossly normal, pharynx normal Neck: supple, no adenopathy, thyroid normal, no JVD, trachea midline Respiratory/Chest: lungs clear, normal breath sounds, no respiratory distress, no accessory muscle use Cardiovascular: regular rate, rhythm, no edema, no JVD, no murmur, normal peripheral pulses Abdomen/GI: normal bowel sounds, non tender, soft Back: normal inspection, no CVA tenderness Extremities/Musculoskelatal: normal inspection, no calf tenderness, no pedal edema, normal range of motion Neurologic/Psych: resin remover II-XII nml as tested, no motor/sensory deficits, alert , normal mood/affect, oriented x 3 Skin: normal color, warm/dry, no rash Lymphatic: no adenopathy Hospital Course APPARENT DIVERTICULITIS Presented with feculent vaginal discharge. CT findings consistent with sigmoid diverticulitis, although other pathology must be considered. GI and General Surgery consulted. Treated for acute diverticulitis with bowel rest, IV fluids, and IV antibiotics. Started on full liquid diet; and diet advanced without difficulty. Transitioned to oral antibiotic therapy with amoxicillin / clavulanic acid. Discharged on amoxicillin / clavulanic acid to complete total of 10 days of antibiotic therapy. Colonoscopy planned after treatment for diverticulitis with subsequent follow- up with General Surgery. VAGINAL DISCHARGE Patient presented with feculent vaginal discharge. CT suggested colovaginal fistula due to underlying diverticulitis or other pathology. HYPERTENSION Blood pressure elevated at time of admission, subsequently improved. Continue propranolol. DIABETES MELLITUS TYPE 2 Well-controlled. Hgb A1C = 6.6. Pharmacy consulted for glycemic management. Received Lantus + NovoLog per protocol. Discharge on usual regimen. VTE PROPHYLAXIS Anticoagulants not utilized in case surgical intervention necessary. SCD's. Ambulate. DISPOSITION Discharge to home. Family Medicine follow-up with Dr. Cabral. Outpatient colonoscopy with Alina MARTINEZ. General Surgery follow-up with Dr. Portillo. . Total time spent on discharge = 25 min. This includes examination of the patient, discharge planning, medication reconciliation, and communication with other providers. . Discharge Instructions Date of Service Oct 12, 2016. Admission Reason for Admission: vaginal discharge . Discharge Discharge Diagnosis / Problem: probable diverticulitis with connection between bowel and vagina Discharge Goals Goal(s): Decrease discomfort, Increase independence, Improve disease control Activity Recommendations Activity Limitations: resume your previous activity . Instructions / Follow-Up Instructions / Follow-Up APPOINTMENTS: FAMILY MEDICINE Dr. cabral's office will call you with appointment. GASTROENTEROLOGY [facility] will call you with appointment for colonoscopy. GENERAL SURGERY Dr. Portillo. Please call his office for appointment about 1 week after your colonoscopy. INSTRUCTIONS: New medications: amoxicillin / clavulanic acid 875 mg twice a day with food for 7 days (antibiotic to treat diverticulitis) Prescription sent to [facility]. Seek medical attention if you have: * temperature above 101 * chest pain or trouble breathing * abdominal pain, nausea, vomiting * diarrhea, dark stools or bloody stools * any unanswered questions or concerns Call 911 if symptoms are severe. Call if you have any questions or problems. My cell # is [phone]. You can also reach a [facility] hospitalist on duty at [facility] 24 hours a day by calling [phone]. Please take good care of yourself. Tylor Vinson . Current Hospital Diet Patient's current hospital diet: AHA Diet (Heart Healthy), Diabetes Type 2 Diet , Low Fiber Diet Discharge Diet Recommended Diet: AHA Diet (Heart Healthy), Diabetes Type 2 Diet, Low Fiber Diet (low fiber diet for 4 weeks) Pending Studies Studies pending at discharge: no Laboratory Results Hemoglobin A1c Test 10/11/16 06:06 Range/Units Estimated Average Glucose 143 mg/dl Hemoglobin A1c 6.6 H 4.5-5.6 % Medical Emergencies . Who to Call and When: Medical Emergencies: If at any time you feel your situation is an emergency, please call 911 immediately. . Non-Emergent Contact Non-Emergency issues call your: Primary Care Provider, Hospital Doctor . . "Provider Documentation" section prepared by Tylor Vinson. . VTE Core Measure Inpt VTE Proph given/why not?: SCD's . Additional Copies To Tasneem Cabral M.D.; Kendall Portillo M.D.; Paige Mayorga CRNP
== END 2016-10-12 19:44 | disposition home or self-care (01) | DRG 394 ==
LOC: ENRESERVTM → ENRESERVDT → C.EDB 21:56 → C.MED 10-10 02:13
PROVIDERS: ADMIT Internal Medicine; ATTEND Hospitalist
DX: N82.3 Fistula of vagina to large intestine (principal); N13.30 Unspecified hydronephrosis; Z79.82 Long term (current) use of aspirin; E11.22 Type 2 diabetes mellitus with diabetic chronic kidney disease; I12.9 Hypertensive chronic kidney disease with stage 1 through stage 4 chronic kidney disease, or unspecified chronic kidney disease; N18.3 Chronic kidney disease, stage 3 (moderate); E66.9 Obesity, unspecified; Z68.26 Body mass index [BMI] 26.0-26.9, adult; I48.0 Paroxysmal atrial fibrillation; Z79.84 Long term (current) use of oral hypoglycemic drugs; K57.30 Diverticulosis of large intestine without perforation or abscess without bleeding; Z79.899 Other long term (current) drug therapy; Z87.440 Personal history of urinary (tract) infections; Z80.9 Family history of malignant neoplasm, unspecified; Z83.3 Family history of diabetes mellitus; Z82.49 Family history of ischemic heart disease and other diseases of the circulatory system; Z84.1 Family history of disorders of kidney and ureter; Z90.49 Acquired absence of other specified parts of digestive tract; Z97.10 Presence of artificial limb (complete) (partial), unspecified

== ENCOUNTER 2016-12-12 06:43 | Inpatient (IN) | payer OTHER ==
[2016-11-29 08:14] VITALS: BMI 26.0
--- NOTE | 2016-11-29 08:53 | PAT Medication Instructions ---
Service Date Nov 29, 2016. Current Home Medication List Aspirin (Aspirin 81), 81 MG PO HS Cholecalciferol (Vitamin D3), 1,000 UNITS PO QAM Glimepiride (Amaryl), 4 MG PO QAM Metformin Hcl (Glucophage), 500 MG PO BID Propranolol La (Inderal La), 120 MG PO QAM Simvastatin (Zocor), 20 MG PO HS Tramadol HCl (Tramadol HCl), 50 MG PO Q6H PRN for Pain Medication Instructions For Your Scheduled Surgery - Hold the following medications 48 hours prior to surgery: Metformin Hcl (Glucophage), 500 MG PO BID - Hold the following medications the morning of surgery: Cholecalciferol (Vitamin D3), 1,000 UNITS PO QAM Glimepiride (Amaryl), 4 MG PO QAM - Take the following medications the morning of surgery with a sip of water: Propranolol La (Inderal La), 120 MG PO QAM Tramadol HCl (Tramadol HCl), 50 MG PO Q6H PRN for Pain (okay to take if needed up to 4 hours prior to surgery) - Take the following medications as scheduled the night before surgery: Simvastatin (Zocor), 20 MG PO HS Aspirin (Aspirin 81), 81 MG PO HS Tramadol HCl (Tramadol HCl), 50 MG PO Q6H PRN for Pain If you have any questions please call us at [phone] or [phone] or [phone]
[2016-11-29 10:28] LABS: BASO % 0.3 %; BASO ABS # 0.02 K/uL (0-0.2); COMPLETE YES; EOS % 2.3 %; IG% 0.3 %; LYMPH % 28.2 %; LYMPH ABS # 1.95 K/uL (1.2-3.4); MEAN CELL VOLUME 84.1 fL (80-100); MEAN CORPUSCULAR HEMOGLOBIN 30.1 pg (25-34); MEAN CORPUSCULAR HGB CONC 35.8 g/dl (32-36); MEAN PLATELET VOLUME 9.8 fL (7.4-10.4); MONO % 6.1 %; NEUT % 62.8 %; PLATELET COUNT 205 K/uL (130-400); RED BLOOD COUNT 4.28 M/uL (4.2-5.4); WHITE BLOOD COUNT 6.92 K/uL (4.8-10.8)
[2016-11-29 11:26] LABS: BUN/CREATININE RATIO 9.6 (10-20); CALCIUM 9.5 mg/dl (8.5-10.1); CREATININE 0.97 mg/dl (0.60-1.20); POTASSIUM 4.5 mmol/L (3.5-5.1)
[~2016-12-12] VITALS: Ht 175.3 cm; Wt 82.2 kg
[2016-12-12] VITALS (10 sets, daily range): BP systolic 115–168; BP diastolic 68–92; PULSE 58–63; TEMP 36.3–36.8; O2SAT 94–99; Ht 175.3 cm; Wt 82.2 kg
[~2016-12-12 06:43] MED LIST: ASPI-435 PO; GLC/500 PO; GLIM4TAB PO; INDSR/120 PO; LACTATED RINGER'S 1000ML 1,000 ML IV SCH; SIMV20TA2 PO; ULT50X PO; VTMD1000 PO
[2016-12-12] MEDS ORDERED: MIDAZOLAM HCL 1 MG/ML 2ML VIAL ONE (07:53)
[2016-12-12] MEDS ORDERED: PROPOFOL IV EMULSION 10 MG/ML 20 ML VIAL IV ONE (07:53)
[2016-12-12] MEDS ORDERED: EpHEDrine SULFATE INJ 50 MG/ML AMP ONE (07:53)
[2016-12-12] MEDS ORDERED: PHENYLEPHRINE HCL INJ 10 MG/ML VIAL ONE (07:53)
[2016-12-12] MEDS ORDERED: ONDANSETRON INJ 2 MG/ML 2 ML VIAL ONE ×2 (07:53→13:29)
[2016-12-12] MEDS ORDERED: NEOSTIGMINE METHYLSULFATE 5 MG/5 ML SYR ONE (07:53)
[2016-12-12] MEDS ORDERED: ROCURONIUM BROMIDE 10 MG/ML 5 ML VIAL ONE (07:53)
[2016-12-12] MEDS ORDERED: DEXAMETHASONE SOD INJ 4 MG/ML VIAL ONE (07:53)
[2016-12-12] MEDS ORDERED: SUCCINYLCHOLINE CHLORIDE 20 MG/ML 10 ML VIAL IV ONE (07:53)
[2016-12-12] MEDS ORDERED: FENTANYL CITRATE INJ 50 MCG/1 ML 2 ML VIAL ONE ×2 (07:53→09:36)
[2016-12-12] MEDS ORDERED: LIDOCAINE HCL 2% 2 ML VIAL (20MG/ML) ONE (07:53)
[2016-12-12] MEDS ORDERED: GLYCOPYRROLATE INJ 0.2 MG/ML VIAL ONE (07:53)
--- NOTE | 2016-12-12 07:59 | History & Physical Bridge Note ---
H&P Re-Evaluation Bridge Note: I have examined the patient, reviewed the History & Physical and in the interval since the performance of the History & Physical I have noted the following changes of clinical significance: No changes noted all questioned answered family be here later.
[2016-12-12] MEDS ORDERED: CEFAZOLIN SOD 1 GM VIAL ONE (08:07)
[2016-12-12] MEDS ORDERED: HYDROmorphone INJ 2 MG/ML SYR/VIAL ONE (09:03)
[2016-12-12] MEDS ORDERED: CISATRACURIUM BESYLATE IV SOLN 2 MG/ML 10 ML VIAL ONE ×2 (09:22→10:26)
[2016-12-12] MEDS ORDERED: CEFOXITIN SOD 1 GM VIAL ONE (10:23)
[2016-12-12] MEDS: SODIUM CHLORIDE 0.9% 1000ML 1,000 ML IV SCH ×3 (12:14→20:37)
[2016-12-12] MEDS ORDERED: NALOXONE HCL 0.4 MG/1 ML VIAL/CARP IV PRN ×2 (12:15→12:30)
[2016-12-12] MEDS ORDERED: DEXTROSE 50% 50 ML SYR IV PRN (12:15)
[2016-12-12] MEDS ORDERED: ACETAMINOPHEN IV 100 ML IV PRN (12:15)
[2016-12-12] MEDS ORDERED: GLUCAGON FOR INJ 1 MG VIAL SQ PRN (12:15)
[2016-12-12] MEDS ORDERED: GLUCOSE 10 TABS/TUBE PO PRN (12:15)
[2016-12-12] MEDS ORDERED: GLUCOSE 40% GEL 15 GM TUBE PO PRN (12:15)
[2016-12-12] MEDS ORDERED: ONDANSETRON INJ 2 MG/ML 2 ML VIAL IV PRN ×2 (12:15→12:30)
--- NOTE | 2016-12-12 12:24 | [facility] Operative Report ---
Operative Report Operative Date Dec 12, 2016. Pre-Operative Diagnosis Colovaginal fistula Post-Operative Diagnosis Colovaginal fistula, coloenteric fistula Procedure(s) Performed Exploratory laparotomy, lysis of adhesions, Closure of Colovaginal Fistula and Coloenteric Fistula with small bowel resection and colonic resection. Surgeon Dr Kendall Portillo Program Arranger Surgeon(s) Brayden Ott Estimated Blood Loss 200cc Findings coloenteric fistula and colovaginal fistula Specimens 1. Urine culture (Sent to lab at 0903) A. Small bowel fistula B. Long suture small bowel fistula Drains #19 srini pelvis and 1/4 alfreda sub cut I attest to the content of the Intraoperative Record and any orders documented therein. Any exceptions are noted below.
[2016-12-12] MEDS ORDERED: MoRPHine SULFATE 1 MG/ML 50 ML PCA CASS ONE (12:29)
[2016-12-12] MEDS ORDERED: FLUMAZENIL 0.1 MG/1 ML 10 ML VIAL IV PRN (12:30)
[2016-12-12] MEDS ORDERED: HYDROmorphone INJ 1 MG/ML SYR IV PRN (12:30)
[2016-12-12] MEDS ORDERED: EpHEDrine SULFATE INJ 50 MG/ML AMP IV PRN (12:30)
[2016-12-12] MEDS ORDERED: PROMETHAZINE HCL INJ 12.5 MG in SODIUM CHLORIDE 0.9% 50ML 50 ML IV PRN ×2 (12:30→16:00)
[2016-12-12] MEDS ORDERED: ATROPINE SULFATE 0.1 MG/ML 5ML SYR IV PRN (12:30)
[2016-12-12] MEDS ORDERED: LABETALOL HCL IV 5 MG/ML 20ML IV PRN (12:30)
[2016-12-12] MEDS ORDERED: LABETALOL HCL IV 5 MG/ML 20ML IV ONE (12:42)
--- NOTE | 2016-12-12 13:32 | Anesthesiology Progress Note ---
Anesthesia Post Op Note Date & Time Dec 12, 2016 at 13:31 Vital Signs Pain Intensity: 2 Vital Signs Past 12 Hours Date Time Temp Pulse Resp B/P (MAP) Pulse Ox O2 Delivery O2 Flow Rate FiO2 12/12/16 13:03 36.4 12/12/16 13:01 171/88 12/12/16 13:00 62 14 12/12/16 13:00 62 14 100 12/12/16 12:56 152/84 12/12/16 12:55 61 13 100 12/12/16 12:55 61 13 12/12/16 12:51 139/73 12/12/16 12:50 60 17 12/12/16 12:50 60 17 100 12/12/16 12:46 159/82 12/12/16 12:45 59 20 12/12/16 12:45 59 20 100 12/12/16 12:41 169/82 12/12/16 12:40 60 11 12/12/16 12:40 60 11 100 12/12/16 12:36 168/83 12/12/16 12:35 59 14 12/12/16 12:35 59 14 100 12/12/16 12:32 166/79 12/12/16 12:30 58 17 12/12/16 12:30 58 17 100 12/12/16 12:26 139/66 12/12/16 12:25 58 14 183/83 100 12/12/16 12:25 58 14 12/12/16 12:20 36.6 60 14 183/83 100 Mask 10 12/12/16 07:27 36.6 62 18 138/75 95 Room Air Notes Mental Status: alert / awake / arousable, participated in evaluation Pt Amnestic to Procedure: Yes Nausea / Vomiting: adequately controlled Pain: adequately controlled Airway Patency, RR, SpO2: stable & adequate BP & HR: stable & adequate Hydration State: stable & adequate Anesthetic Complications: no major complications apparent
[2016-12-12] MEDS ORDERED: HYDROmorphone INJ 0.5 MG/0.5 ML SYR ONE (13:33)
--- NOTE | 2016-12-12 13:52 | OPERATIVE REPORT ---
DATE OF OPERATION: 12/12/2016 PREOPERATIVE DIAGNOSIS: Colovaginal fistula, chronic diverticulitis. POSTOPERATIVE DIAGNOSIS: Same, also coloenteric fistula. PROCEDURE: Exploratory lap, lysis of adhesion, small bowel resection with [id number] anastomosis, colonic resection with mobilization of the splenic flexure with primary side-to-end anastomosis, closure of the vaginal fistula. SURGEON: Dr. Portillo. SHELL PRESS OPERATOR: Carlos Ott PA-C. OPERATION AND FINDINGS: SUMMARY: The patient was brought into the operating room theater, was placed in lithotomy position, the abdomen and pelvic area including vaginal area was prepped with Betadine solution and properly draped. A Robin catheter had been inserted. We made an incision through the old scar which started to the left of the umbilicus all the way down to the symphysis pubis, deepened through subcutaneous tissue. We entered the abdomen, we were met with the omentum which was strictly adherent to the anterior abdominal wall. We took this down. At this point, once we had mobilized this, we could see that the small bowel was strictly adherent down the pelvic area. A significant amount of adhesions were encountered. We then placed a Bookwalter retraction to the point that this was an en block and very scarred in tissue of the sigmoid colon, rectal and small bowel down into the pelvic area. At this point, we mobilized the sigmoid colon which was really thickened down to the white line of Toldt, identified the left ureter and placed it with an umbilical tape to get it out of the way, then our dissection was actually to the left side down towards the pelvic area into really scarred down tissue adherent to the pelvic wall away from the ureter, we basically used a knife to cut through this. Once we were there we got to the point that then we were able to get down to the left side where the area eventually would be most likely the vaginal fistula area. Prior to doing this, we tried to mobilize the colon and the sigmoid and the small bowel out of the pelvis by first dividing the colon with a AFUA stapler just at the distal descending colon. Having the proximal area out of the way we then cut the mesentery down to the sigmoid area into the rectal area which was quite thick and ligated everything with 2-0 silk suture. What we identified at this area as we were able to get into the Waldeyer's fascia area eliminated everything out of the pelvis that the patient anteriorly we could see very scarred in area inferior to the bladder consistent with the area where the possibility this was a vaginal fistula. We cut into this and once we were freed this up, we were able to elevate this out of the pelvis. In elevating this out of the pelvis the sigmoid colon and the rectum area, the small bowel was strictly adherent to the sigmoid colon area on the right side. There was no plane of dissection. We cut into it and actually identified that there was a fistula from the small bowel going into the sigmoid area. We cut through this then resected approximately 3 inches of the small bowel where the fistula was, used staple proximally and distally AFUA. We oversewed the staple line and then did a [id number] anastomosis with 3-0 silk outer layer, 3-0 chromic inner layer of the small bowel. We closed the mesentery. At this point, once we elevated the small bowel and the colon out of the pelvic area we were able to put a right angle intestinal clamp distally and divided the distal sigmoid area which was quite inflamed and indurated all the way down to almost the rectal area. Once this was resected out I marked the area where the fissure had gone into the small bowel with a long suture and anterior was probably the fissure to the vaginal area. At this point, once we had this out of the pelvis we then used a sponge on stick to place in the vagina and push up the area where we thought was the fistula. There was no obvious large opening. There was one area that we suspected that this was likely small fistulous tract. We oversewed this with 3-0 chromic suture. The area was then checked for hemostasis and appeared satisfactory. We would then eventually place an omental tongue along that area. The descending colon needed to be mobilized, we mobilized all the way to the splenic flexure to get enough mobility to get down to the pelvic area. The line of resection of the descending colon which was an indurated area we took back another 3-4 cm and another application of the AFUA. The tissue appeared to be more pliable. That staple line was oversewn with 3-0 silk suture. When on and did a side-to-end anastomosis using 3-0 silk outer layer, 3-0 chromic inner layer interruptedly between the sigmoid and almost rectal area. The anastomosis appeared satisfactory. I had good blood supply and no tension. The area was then irrigated. We had a few epiploic down proximal to the anastomoses in her rectal area and we used to tie down just overlapping the anastomosis to prevent it from going and connection down to the previous vaginal area, but having done this, we also brought tongue of omentum and laid completely on top the 2 suture lines. The area was then checked for hemostasis and appeared satisfactory. We ran the small bowel, there was no true obstructions or other adhesions. The wound was then closed by placing a third 19 Barry drain stab wound right lower quadrant and placed down in the pelvic area attached to skin edges with 2-0 silk suture. The abdominal fascia was closed with interrupted #1 PDS [id number]. Subcutaneous tissue closed with a [place] drain subQ, attached to skin edges both distally and proximally 2-0 silk and iman for skin edges. Dressing was applied. The procedure was tolerated well by the patient. Estimated blood loss approximately 200 mL. The patient was taken to recovery room in good condition. I attest to the content of the Intraoperative Record and any orders documented therein. Any exception s are noted below.
[2016-12-12 13:54] LABS: HEMATOCRIT 34.2 % (37-47)
[2016-12-12] MEDS: MoRPHine SULFATE 1 MG/ML 50 ML PCA CASS IV PRN ×2 (15:30→22:52)
[2016-12-12] MEDS ORDERED: LSN5 PO (15:31)
--- NOTE | 2016-12-12 16:05 | Medical Consult ---
Consultation Date of Consultation: Dec 12, 2016. Attending Physician: Kendall Portillo M.D. History of Present Illness Patient seen and examined. Presented in late September (3 months ago) with fecal discharge from vagina and was found to have sigmoid diverticulitis with rectovaginal fistula. Was treated for diverticulitis and instructed to follow up with GI for a colonoscopy and then with General Surgery for surgical repair. 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 Patient is stable and resting on exam. States that she is experiencing bilateral lower abdominal pain with associated nausea. No vomiting. Denies dizziness, CP or SOB. Is NPO at this point. Past Medical/Surgical History Medical Problems: (1) CKD (chronic kidney disease), stage III Status: Chronic (2) DM type 2 (diabetes mellitus, type 2) Status: Chronic (3) Dyslipidemia Status: Chronic (4) HTN (hypertension) Status: Chronic (5) Paroxysmal atrial tachycardia Status: Chronic (6) Radius fracture Permanent Comment: s/p repair Status: Chronic Surgical Problems: (1) History of cataract surgery Status: Chronic (2) S/P partial hysterectomy Status: Chronic Family History Cancer Diabetes mellitus Heart disease Hypertension Kidney disease Kidney stones Social History Smoking Status: Never Smoker Drug Use: none Marital Status: Housing Status: lives alone Occupation Status: retired Allergies Coded Allergies: No Known Allergies (Unverified , 12/12/16) Home Medications Reported Home Medications Medications Dose Route/Sig Max Daily Dose Days Date Category Lisinopril 5 Mg Tab 5 Mg PO DAILY 12/12/16 Reported Tramadol HCl 50 Mg Tab 50 Mg PO Q6H PRN 10/12/16 Reported Zocor (Simvastatin) 20 Mg Tab 20 Mg PO HS 10/12/16 Reported Amaryl (Glimepiride) 4 Mg Tab 4 Mg PO QAM 10/12/16 Reported Vitamin D3 (Cholecalciferol) 1,000 Inter.unit Tab 1,000 Units PO QAM 10/12/16 Reported Inderal La (Propranolol HCl) 120 Mg Capcr 120 Mg PO QAM 10/09/16 Reported Glucophage (Metformin Hcl) 500 Mg Tab 500 Mg PO BID 10/09/16 Reported Aspirin 81 (Aspirin) 81 Mg Tab 81 Mg PO HS 10/09/16 Reported Current Inpatient Medications Current Inpatient Medications Medications (Trade) Dose Ordered Sig/Rainer Route Start Time Stop Time Status Last Admin Dose Admin Sodium Chloride 1,000 ml @ 125 mls/hr Q8H IV 12/12/16 12:14 01/11/17 12:13 Acetaminophen 100 ml @ 400 mls/hr Q8H PRN IV 12/12/16 12:15 01/11/17 12:14 Ondansetron HCl (Zofran Inj) 4 mg Q6H PRN IV 12/12/16 12:15 01/11/17 12:14 Heparin Sodium (Porcine) (Heparin Sq 5000 Unit/0.5ml) 5,000 unit Q8H SQ 12/12/16 20:00 01/11/17 19:59 UNV Naloxone HCl (Narcan Inj) 0.1 mg Q5M PRN IV 12/12/16 12:15 01/11/17 12:14 Morphine Sulfate (moRPHine SULFATE GENERAL MACHINIST) 50 mg PRN PRN IV 12/12/16 12:15 12/26/16 12:14 12/12/16 15:30 50 MG Sodium Chloride 1,000 ml @ 15 mls/hr Q24H IV 12/12/16 12:14 01/11/17 12:13 Insulin Aspart (novoLOG ASPART) SLIDING SCALE If C... ACHS SC 12/12/16 17:15 01/11/17 17:14 Glucose (Glucose 40% Gel) 15-30 GRAMS 15 GRAMS... UD PRN PO 12/12/16 12:15 01/11/17 12:14 Glucose (Glucose Chew Tab) 4-8 Tablets 4 Tabl... UD PRN PO 12/12/16 12:15 01/11/17 12:14 Dextrose (Dextrose 50% 50ML Syringe) 25-50ML OF 50% DW IV FOR... UD PRN IV 12/12/16 12:15 01/11/17 12:14 Glucagon (Glucagon Inj) 1 mg UD PRN SQ 12/12/16 12:15 01/11/17 12:14 Aspirin (Ecotrin Tab) 81 mg HS PO 12/12/16 21:00 01/11/17 20:59 Propranolol HCl (Inderal La Cap) 120 mg QAM PO 12/13/16 09:00 01/12/17 08:59 Cefoxitin Sodium 2000 mg/Dextrose 60 ml @ 100 mls/hr Q6H IV 12/12/16 16:00 12/13/16 04:35 Pantoprazole Sodium (Protonix Tab) 40 mg QAM PO 12/13/16 09:00 01/12/17 08:59 Hydromorphone HCl (Dilaudid Inj) 0.25 mg Q5M PRN IV 12/12/16 12:30 12/12/16 17:30 Naloxone HCl (Narcan Inj) 0.2 mg Q2M PRN IV 12/12/16 12:30 12/12/16 17:30 Flumazenil (Romazicon Inj) 0.2 mg Q2M PRN IV 12/12/16 12:30 12/12/16 17:30 Ondansetron HCl (Zofran Inj) 4 mg ONE PRN IV 12/12/16 12:30 12/12/16 17:30 Promethazine HCl 12.5 mg/Sodium Chloride 50.5 ml @ 202 mls/hr ONE PRN IV 12/12/16 12:30 12/12/16 17:30 Labetalol HCl (Normodyne IV) 5 mg Q5M PRN IV 12/12/16 12:30 12/12/16 17:30 Ephedrine Sulfate (EpHEDrine SULFATE INJ) 5 mg Q5M PRN IV 12/12/16 12:30 12/12/16 17:30 Atropine Sulfate (Atropine Sulfate 0.1MG/Ml Inj) 0.5 mg Q1M PRN IV 12/12/16 12:30 12/12/16 17:30 Lisinopril (Zestril Tab) 5 mg DAILY PO 12/13/16 09:00 01/12/17 08:59 UNV Simvastatin (Zocor Tab) 20 mg HS PO 12/12/16 21:00 01/11/17 20:59 UNV Review of Systems Ten systems reviewed and negative except as noted in the HPI. Physical Exam Date Time Temp Pulse Resp B/P (MAP) Pulse Ox O2 Delivery O2 Flow Rate FiO2 12/12/16 14:51 36.3 63 18 163/91 (115) 99 Nasal Cannula 3.5 12/12/16 14:15 36.7 60 18 160/90 (113) 99 Nasal Cannula 3.0 12/12/16 14:12 98 Nasal Cannula 3.0 12/12/16 14:06 98 Nasal Cannula 3.0 12/12/16 13:45 36.7 60 18 159/88 (111) 98 Nasal Cannula 3.0 12/12/16 13:36 16 151/76 12/12/16 13:34 59 12/12/16 13:34 59 100 12/12/16 13:29 61 13 12/12/16 13:29 61 100 12/12/16 13:27 150/78 12/12/16 13:24 61 13 100 12/12/16 13:24 61 13 12/12/16 13:21 176/86 12/12/16 13:19 61 11 12/12/16 13:19 61 11 100 12/12/16 13:17 150/75 12/12/16 13:14 60 12 100 12/12/16 13:14 60 12 12/12/16 13:11 174/84 12/12/16 13:09 60 20 12/12/16 13:09 60 20 100 12/12/16 13:06 155/83 12/12/16 13:04 61 13 12/12/16 13:04 62 13 144/75 100 12/12/16 13:03 36.4 12/12/16 13:01 171/88 12/12/16 13:00 62 14 12/12/16 13:00 62 14 100 12/12/16 12:56 152/84 12/12/16 12:55 61 13 100 12/12/16 12:55 61 13 12/12/16 12:51 139/73 12/12/16 12:50 60 17 12/12/16 12:50 60 17 100 12/12/16 12:46 159/82 12/12/16 12:45 59 20 12/12/16 12:45 59 20 100 12/12/16 12:41 169/82 12/12/16 12:40 60 11 12/12/16 12:40 60 11 100 12/12/16 12:36 168/83 12/12/16 12:35 59 14 12/12/16 12:35 59 14 100 12/12/16 12:32 166/79 12/12/16 12:30 58 17 12/12/16 12:30 58 17 100 12/12/16 12:26 139/66 12/12/16 12:25 58 14 183/83 100 12/12/16 12:25 58 14 12/12/16 12:20 36.6 60 14 183/83 100 Mask 10 12/12/16 07:27 36.6 62 18 138/75 95 Room Air General Appearance: WD/WN, with mild distress. Resting with intermittent wincing from abdominal pain. Head: normocephalic, atraumatic Eyes: normal inspection, no scleral icterus ENT: hearing grossly normal, pharynx normal Neck: supple, no JVD, no adenopathy Respiratory/Chest: lungs clear to auscultation. No wheezes, rales or rhonci. No respiratory distress or accessory muscle use Cardiovascular: regular rate, rhythm, no murmur, normal peripheral pulses Abdomen/GI: normal bowel sounds, soft. Tender in bilateral lower abdominal quadrants. Clean, dry bandages in place on abdomen. BARBARA drain with 25cc of sanguinous fluid observed. 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 Portillo. -Pt is doing well post-operatively. C/o abdominal pain with some nausea but is stable. -Per general surgery for pain control, wound care, anticoagulation, diet and activities -Monitor H&H, continue incentive spirometry, PT/OT when appropriate DM II: -Hgb a1c of 6.1 on 11/27/16 -Hold oral agents and use SSI while in-patient -BG checks QID HTN: stable -BP slightly elevated to 160/90, likely 2/2 pain -Continue Lisinopril and propranolol -Monitor vitals Paroxysmal Atrial Tachycardia: -Remote history -Stable; continue propranolol CKD III: -Baseline Cr of 1. Currently at 0.97. -Avoid nephrotoxic agents HLD: stable -Continue statin DVT Ppx: per General Surgery PCP: Dr. Rosa Thank you for this consultation. We will follow the patient with you during their hospital stay. You can reach a member of the [facility] Team 04/12 via pager @ [phone]. Attending addendum: Agree with the above consultation; please see above for more detail. Patient was admitted for planned surgery to address colovaginal fistula and coloenteric fistula. She underwent small bowel and colon resection today. She has some mild nausea which was made worse by sitting up. She has pain in her abdomen but does admit that she has forgotten to push her GENERAL MACHINIST pump and when it is pressed the medication gives her relief. No other complaints at this time. Denies any CP or SOB. Cardiac: RR, S1 and S2 auscultated Resp: few basilar crackles improved with cough/deep breathing, no wheezes GI: soft, hypoactive bowel sounds, tender to palpation Postoperative status post small bowel resection: hx of coloenteric and colovaginal fistula -POD #0 -daily CBC and BMP, monitor and replete as necessary -diet advance and activity as per primary -pain control as per primary -DVT prophylaxis as per primary DM Type II: -hold oral meds while hospitalized -can cover with correction scale insulin + low dose basal insulin -monitor BSG until taking PO HTN: -continue to monitor and adjust home meds as needed
[2016-12-12 16:19] LABS: PARTIAL THROMBOPLASTIN RATIO 0.9; PROTHROMBIN TIME (PATIENT) 11.1 SECONDS (9.0-12.0)
[2016-12-12] MEDS: CEFOXITIN IV 2,000 MG in DEXTROSE 5% 50ML 50 ML IV SCH ×2 (17:27→23:10)
[2016-12-12] MEDS: INSULIN ASPART 100 UNITS/ML 3 ML PEN SC SCH ×2 (18:50→20:55)
[2016-12-12] MEDS: ACETAMINOPHEN IV 1,000 MG in EMPTY BAG 0 ML IV SCH (18:52)
[2016-12-12] MEDS: ASPIRIN 81 MG ECTAB PO SCH (20:34)
[2016-12-12] MEDS: HEPARIN SOD 5000 UNIT/0.5 ML CARP SQ SCH (20:34)
[2016-12-12] MEDS: SIMVASTATIN 20 MG TAB PO SCH (20:35)
[2016-12-12] MEDS ORDERED: NURSING VERBAL MED ORDER ONE (21:00)
[2016-12-13] MEDS: INSULIN ASPART 100 UNITS/ML 3 ML PEN SC SCH ×4 (00:03→18:42)
[2016-12-13] MEDS: ACETAMINOPHEN IV 1,000 MG in EMPTY BAG 0 ML IV SCH ×2 (01:55→10:42)
[2016-12-13 03:05] VITALS: BP 100/60; PULSE 59; TEMP 36.8; O2SAT 94
[2016-12-13] MEDS: SODIUM CHLORIDE 0.9% 1000ML 1,000 ML IV SCH ×4 (03:42→19:38)
[2016-12-13] MEDS: HEPARIN SOD 5000 UNIT/0.5 ML CARP SQ SCH ×2 (03:45→16:41)
[2016-12-13] MEDS: CEFOXITIN IV 2,000 MG in DEXTROSE 5% 50ML 50 ML IV SCH (03:47)
[2016-12-13 06:22] LABS: COMPLETE YES; HEMATOCRIT 28.7 % (37-47); IG% 0.2 %; LYMPH % 10.3 %; MEAN CELL VOLUME 84.2 fL (80-100); MEAN CORPUSCULAR HEMOGLOBIN 28.2 pg (25-34); MEAN CORPUSCULAR HGB CONC 33.4 g/dl (32-36); MEAN PLATELET VOLUME 9.7 fL (7.4-10.4); MONO % 5.1 %; NEUT % 84.4 %; PLATELET COUNT 191 K/uL (130-400); RED BLOOD COUNT 3.41 M/uL (4.2-5.4); WHITE BLOOD COUNT 9.71 K/uL (4.8-10.8)
[2016-12-13 06:59] LABS: BUN/CREATININE RATIO 9.8 (10-20); CALCIUM 7.8 mg/dl (8.5-10.1); CREATININE 1.3 mg/dl (0.60-1.20); POTASSIUM 4.2 mmol/L (3.5-5.1)
[2016-12-13] MEDS: MoRPHine SULFATE 1 MG/ML 50 ML PCA CASS IV PRN ×2 (07:10→23:03)
--- NOTE | 2016-12-13 07:23 | Surgery Progress Note ---
Surgery Progress Note Date of Service Dec 13, 2016. Subjective Post OP Day: 1 + feeling well, + pain controlled, + nausea (resolved), No complaints Objective Vital Signs: Date Time Temp Pulse Resp B/P (MAP) Pulse Ox O2 Delivery O2 Flow Rate FiO2 12/13/16 03:05 36.8 59 14 100/60 (73) 94 Room Air 12/12/16 23:40 Room Air 12/12/16 23:23 36.4 58 14 115/68 (84) 94 Room Air 12/12/16 19:50 36.5 60 16 135/84 (101) 99 Nasal Cannula 3.0 12/12/16 16:39 36.4 61 16 154/88 (110) 98 Nasal Cannula 3.0 12/12/16 15:48 36.8 63 16 168/92 (117) 98 Nasal Cannula 3.0 12/12/16 15:45 Room Air 3.0 Nasal Cannula 12/12/16 14:51 36.3 63 18 163/91 (115) 99 Nasal Cannula 3.5 12/12/16 14:15 36.7 60 18 160/90 (113) 99 Nasal Cannula 3.0 12/12/16 14:12 98 Nasal Cannula 3.0 12/12/16 14:06 98 Nasal Cannula 3.0 12/12/16 13:45 36.7 60 18 159/88 (111) 98 Nasal Cannula 3.0 12/12/16 13:36 16 151/76 12/12/16 13:34 59 12/12/16 13:34 59 100 12/12/16 13:29 61 13 12/12/16 13:29 61 100 12/12/16 13:27 150/78 12/12/16 13:24 61 13 100 12/12/16 13:24 61 13 12/12/16 13:21 176/86 12/12/16 13:19 61 11 12/12/16 13:19 61 11 100 12/12/16 13:17 150/75 12/12/16 13:14 60 12 100 12/12/16 13:14 60 12 12/12/16 13:11 174/84 12/12/16 13:09 60 20 12/12/16 13:09 60 20 100 12/12/16 13:06 155/83 12/12/16 13:04 61 13 12/12/16 13:04 62 13 144/75 100 12/12/16 13:03 36.4 12/12/16 13:01 171/88 12/12/16 13:00 62 14 12/12/16 13:00 62 14 100 12/12/16 12:56 152/84 12/12/16 12:55 61 13 100 12/12/16 12:55 61 13 12/12/16 12:51 139/73 12/12/16 12:50 60 17 12/12/16 12:50 60 17 100 12/12/16 12:46 159/82 12/12/16 12:45 59 20 12/12/16 12:45 59 20 100 12/12/16 12:41 169/82 12/12/16 12:40 60 11 12/12/16 12:40 60 11 100 12/12/16 12:36 168/83 12/12/16 12:35 59 14 12/12/16 12:35 59 14 100 12/12/16 12:32 166/79 12/12/16 12:30 58 17 12/12/16 12:30 58 17 100 12/12/16 12:26 139/66 12/12/16 12:25 58 14 183/83 100 12/12/16 12:25 58 14 12/12/16 12:20 36.6 60 14 183/83 100 Mask 10 12/12/16 07:27 36.6 62 18 138/75 95 Room Air Physical Exam: Barry drainage (50 cc overnight), urine output (350 overnight) Respiratory/Chest: lungs clear Cardiovascular: regular rate, rhythm Abdomen: non distended, soft Incision(s): drainage (from alfreda drain) Laboratory Results: Results Past 24 Hours Test 12/12/16 12:46 12/12/16 13:43 12/12/16 15:36 12/12/16 17:58 Range/Units Bedside Glucose 216 225 70-90 mg/dl Hemoglobin 11.5 12.0-16.0 g/dL Hematocrit 34.2 37-47 % Prothrombin Time 11.1 9.0-12.0 SECONDS Prothromb Time International Ratio 1.0 0.9-1.1 Activated Partial Thromboplast Time 23.1 21.0-31.0 SECONDS Partial Thromboplastin Ratio 0.9 Test 12/12/16 23:56 12/13/16 05:50 12/13/16 05:53 Range/Units Bedside Glucose 265 229 70-90 mg/dl White Blood Count 9.71 4.8-10.8 K/uL Red Blood Count 3.41 4.2-5.4 M/uL Hemoglobin 9.6 12.0-16.0 g/dL Hematocrit 28.7 37-47 % Mean Corpuscular Volume 84.2 80-100 fL Mean Corpuscular Hemoglobin 28.2 25-34 pg Mean Corpuscular Hemoglobin Concent 33.4 32-36 g/dl Platelet Count 191 130-400 K/uL Mean Platelet Volume 9.7 7.4-10.4 fL Neutrophils (%) (Auto) 84.4 % Lymphocytes (%) (Auto) 10.3 % Monocytes (%) (Auto) 5.1 % Eosinophils (%) (Auto) 0.0 % Basophils (%) (Auto) 0.0 % Neutrophils # (Auto) 8.19 1.4-6.5 K/uL Lymphocytes # (Auto) 1.00 1.2-3.4 K/uL Monocytes # (Auto) 0.50 0.11-0.59 K/uL Eosinophils # (Auto) 0.00 0-0.5 K/uL Basophils # (Auto) 0.00 0-0.2 K/uL RDW Standard Deviation 41.9 36.4-46.3 fL RDW Coefficient of Variation 13.9 11.5-14.5 % Immature Granulocyte % (Auto) 0.2 % Immature Granulocyte # (Auto) 0.02 0.00-0.02 K/uL Sodium Level 138 136-145 mmol/L Potassium Level 4.2 3.5-5.1 mmol/L Chloride Level 107 98-107 mmol/L Carbon Dioxide Level 25 21-32 mmol/L Anion Gap 6.0 3-11 mmol/L Blood Urea Nitrogen 13 7-18 mg/dl Creatinine 1.30 0.60-1.20 mg/dl Est Creatinine Clear Calc Drug Dose 41.5 ml/min Estimated GFR () 45.8 Estimated GFR (Non- 39.5 BUN/Creatinine Ratio 9.8 10-20 Random Glucose 206 70-99 mg/dl Calcium Level 7.8 8.5-10.1 mg/dl Microbiology Results 12/12/16 Urine Culture, Received Pending Assessment & Plan s/p sigmoid colectomy, repair colovaginal fistula and coloenteric fistula ( partial small bowel resection) seen with Dr. Portillo nausea resolved, pain control better post op anemia will monitor H&H, has had transfusion reaction in the past was OOB this AM & not symptomatic decrease SQ heparin to q12h keep on ice/sips
[2016-12-13 07:48] VITALS: BP 102/52; PULSE 62; TEMP 36.6; O2SAT 94
[2016-12-13 07:50] VITALS: O2SAT 94
--- NOTE | 2016-12-13 08:48 | Clinical Documentation Query ---
Mr. CASTANEDASHAN : CLINICAL DOCUMENTATION QUERY Patient is a 76 year old female who on 12/12 underwent exploratory lap, lysis of adhesions, closure of colovaginal fistula, small bowel and colon resection with anastomosis. EBL for the procedure was 200 ml's. BARBARA drain has subsequently drained an additional 160 ml's to date. Preoperative h/h was 12.9 g/dl and 36%. POD #1, repeat values are 9.6 g/dl and 28.7%. Documentation includes "post op anemia". This implies blood loss, but if not so explicitly stated, cannot be captured by the professional cake press operator helper. As appropriate, consider documentation as suggested below. Thank you. In your clinical opinion is this patient being managed for: ( x ) Acute postoperative blood loss anemia ( ) Other explanation of clinical findings (Please Explain) ( ) Unable to determine (Please Define) ( ) Need to Discuss ( ) Not Agree The medical record reflects the following clinical findings, treatment, and risk factors. Clinical Indicators: As above Treatment: I/O including drain outputs, serial hematology Risk Factors: Acute perioperative blood losses. Please clarify and document your clinical opinion in the progress notes and discharge summary. Terms such as "probable", "suspected", "likely", "questionable", "possible", or "still to be ruled out" are acceptable. IF IN AGREEMENT, YOU MUST DOCUMENT ABOVE DIAGNOSTIC STATEMENT IN DAILY PROGRESS NOTES AND DISCHARGE SUMMARY. This document is not part of the patient's record. Thank You, Jim Ward, MARY [phone]
--- NOTE | 2016-12-13 08:49 | Clinical Documentation Query ---
Dr. GRAFF [facility] : CLINICAL DOCUMENTATION QUERY Patient is a 76 year old female who on 12/12 underwent exploratory lap, lysis of adhesions, closure of colovaginal fistula, small bowel and colon resection with anastomosis. EBL for the procedure was 200 ml's. BARBARA drain has subsequently drained an additional 160 ml's to date. Preoperative h/h was 12.9 g/dl and 36%. POD #1, repeat values are 9.6 g/dl and 28.7%. Documentation includes "post op anemia". This implies blood loss, but if not so explicitly stated, cannot be captured by the professional fashion merchandiser. As appropriate, consider documentation as suggested below. Thank you. In your clinical opinion is this patient being managed for: ( ) Acute postoperative blood loss anemia ( x ) Other explanation of clinical findings (Please Explain) combination dilution and op losses ( ) Unable to determine (Please Define) ( ) Need to Discuss ( ) Not Agree The medical record reflects the following clinical findings, treatment, and risk factors. Clinical Indicators: As above Treatment: I/O including drain outputs, serial hematology Risk Factors: Acute perioperative blood losses. Please clarify and document your clinical opinion in the progress notes and discharge summary. Terms such as "probable", "suspected", "likely", "questionable", "possible", or "still to be ruled out" are acceptable. IF IN AGREEMENT, YOU MUST DOCUMENT ABOVE DIAGNOSTIC STATEMENT IN DAILY PROGRESS NOTES AND DISCHARGE SUMMARY. This document is not part of the patient's record. Thank You, Jim Ward, RN [phone]
[2016-12-13] MEDS ORDERED: LISINOPRIL 5 MG TAB PO SCH (09:00)
--- NOTE | 2016-12-13 10:31 | Anesthesiology Progress Note ---
Anesthesia Post Op Note Date & Time Dec 13, 2016 at 10:31 Vital Signs Pain Intensity: 0.0 Vital Signs Past 12 Hours Date Time Temp Pulse Resp B/P (MAP) Pulse Ox O2 Delivery O2 Flow Rate FiO2 12/13/16 07:50 94 Room Air 12/13/16 07:48 36.6 62 14 102/52 (69) 94 Room Air 12/13/16 03:05 36.8 59 14 100/60 (73) 94 Room Air 12/12/16 23:40 Room Air 12/12/16 23:23 36.4 58 14 115/68 (84) 94 Room Air Notes Mental Status: alert / awake / arousable, participated in evaluation Pt Amnestic to Procedure: Yes Nausea / Vomiting: adequately controlled Pain: adequately controlled Airway Patency, RR, SpO2: stable & adequate BP & HR: stable & adequate Hydration State: stable & adequate Anesthetic Complications: no major complications apparent
[2016-12-13] MEDS: PANTOprazole SOD 40 MG TAB PO SCH (10:40)
[2016-12-13] MEDS: PROPRANOLOL HCL 60 MG LA CAP PO SCH (12:09)
[2016-12-13 12:17] VITALS: BP 104/62; PULSE 67; TEMP 36.9; O2SAT 92
[2016-12-13 12:28] LABS: HEMATOCRIT 26.4 % (37-47)
--- NOTE | 2016-12-13 15:24 | Progress Note ---
Internal Med Progress Note Date of Service: Dec 13, 2016. Provider Documentation: SUBJECTIVE: Seen and examined at bedside. States pain is controlled. No BM yet Denies SOB, chest pain, dizziness, nausea. Family at bedside. OBJECTIVE: Vital Signs-as noted below Physical Exam: General Appearance:Moderately built and nourished, no apparent distress Head: normocephalic, Atraumatic Eyes: normal inspection, EOMI, PERRL Neck: supple, Trachea midline Respiratory/Chest: Normal breath sounds, CTA Cardiovascular: S1, S2, No murmur Abdomen/GI:Soft, mild tender, Bowel sounds present, surgical site in bandage, + drain Extremities/Musculoskelatal:normal inspection, no edema Neurologic/Psych:grossly no focal neurological deficits Skin: normal color, warm Lab data as noted below. ASSESSMENT & PLAN: S/P sigmoid colectomy, repair colovaginal fistula and coloenteric fistula ( partial small bowel resection) POD # [address] Portillo pain controlled NPO for now Surgery following Wound care Monitor H&H for post op anemia PHYLICIA on CKD III: Continue IV fluids Hold lisinopril Monitor renal function Possible UTI: Denies urinary symptoms empirically treat with IV Ceftriaxone Follow urine culture DM II: Hgb a1c of 6.1 on 11/27/16 Hold oral agents continue SSI, accu checks HTN: stable Continue propranolol Lisinopril on hold secondary to PHYLICIA Monitor Paroxysmal Atrial Tachycardia: Stable continue propranolol HLD: stable Continue statin DVT Ppx: per General Surgery PCP: Dr. Rosa Vital Signs: Date Time Temp Pulse Resp B/P (MAP) Pulse Ox O2 Delivery O2 Flow Rate FiO2 12/13/16 15:38 37.0 63 16 107/66 (80) 94 Room Air 12/13/16 12:17 36.9 67 14 104/62 (76) 92 Room Air 12/13/16 08:00 Room Air 12/13/16 07:50 94 Room Air 12/13/16 07:48 36.6 62 14 102/52 (69) 94 Room Air 12/13/16 03:05 36.8 59 14 100/60 (73) 94 Room Air 12/12/16 23:40 Room Air 12/12/16 23:23 36.4 58 14 115/68 (84) 94 Room Air 12/12/16 19:50 36.5 60 16 135/84 (101) 99 Nasal Cannula 3.0 12/12/16 16:39 36.4 61 16 154/88 (110) 98 Nasal Cannula 3.0 12/12/16 15:48 36.8 63 16 168/92 (117) 98 Nasal Cannula 3.0 12/12/16 15:45 Room Air 3.0 Nasal Cannula Lab Results: Results Past 24 Hours Test 12/12/16 17:58 12/12/16 23:56 12/13/16 05:50 12/13/16 05:53 Range/Units Bedside Glucose 225 265 229 70-90 mg/dl White Blood Count 9.71 4.8-10.8 K/uL Red Blood Count 3.41 4.2-5.4 M/uL Hemoglobin 9.6 12.0-16.0 g/dL Hematocrit 28.7 37-47 % Mean Corpuscular Volume 84.2 80-100 fL Mean Corpuscular Hemoglobin 28.2 25-34 pg Mean Corpuscular Hemoglobin Concent 33.4 32-36 g/dl Platelet Count 191 130-400 K/uL Mean Platelet Volume 9.7 7.4-10.4 fL Neutrophils (%) (Auto) 84.4 % Lymphocytes (%) (Auto) 10.3 % Monocytes (%) (Auto) 5.1 % Eosinophils (%) (Auto) 0.0 % Basophils (%) (Auto) 0.0 % Neutrophils # (Auto) 8.19 1.4-6.5 K/uL Lymphocytes # (Auto) 1.00 1.2-3.4 K/uL Monocytes # (Auto) 0.50 0.11-0.59 K/uL Eosinophils # (Auto) 0.00 0-0.5 K/uL Basophils # (Auto) 0.00 0-0.2 K/uL RDW Standard Deviation 41.9 36.4-46.3 fL RDW Coefficient of Variation 13.9 11.5-14.5 % Immature Granulocyte % (Auto) 0.2 % Immature Granulocyte # (Auto) 0.02 0.00-0.02 K/uL Sodium Level 138 136-145 mmol/L Potassium Level 4.2 3.5-5.1 mmol/L Chloride Level 107 98-107 mmol/L Carbon Dioxide Level 25 21-32 mmol/L Anion Gap 6.0 3-11 mmol/L Blood Urea Nitrogen 13 7-18 mg/dl Creatinine 1.30 0.60-1.20 mg/dl Est Creatinine Clear Calc Drug Dose 41.5 ml/min Estimated GFR () 45.8 Estimated GFR (Non- 39.5 BUN/Creatinine Ratio 9.8 10-20 Random Glucose 206 70-99 mg/dl Calcium Level 7.8 8.5-10.1 mg/dl Test 12/13/16 08:23 12/13/16 11:57 12/13/16 12:02 Range/Units Bedside Glucose 201 166 70-90 mg/dl Hemoglobin 8.9 12.0-16.0 g/dL Hematocrit 26.4 37-47 %
[2016-12-13 15:38] VITALS: BP 107/66; PULSE 63; TEMP 37; O2SAT 94
[2016-12-13] MEDS: CEFTRIAXONE SOD INJ 1 GM in DEXTROSE 5% ADD-VANTAGE 50ML 50 ML IV SCH (16:42)
[2016-12-13] MEDS ORDERED: NURSING VERBAL MED ORDER ONE (17:00)
[2016-12-13] MEDS: ASPIRIN 81 MG ECTAB PO SCH (22:24)
[2016-12-13] MEDS: SIMVASTATIN 20 MG TAB PO SCH (22:25)
[2016-12-13 23:57] VITALS: BP 105/62; PULSE 62; TEMP 37.1; O2SAT 93
[2016-12-14] VITALS (7 sets, daily range): BP systolic 102–130; BP diastolic 60–77; PULSE 56–63; TEMP 36.8–37; O2SAT 90–94
[2016-12-14] MEDS: SODIUM CHLORIDE 0.9% 1000ML 1,000 ML IV SCH ×4 (03:42→22:11)
[2016-12-14] MEDS: HEPARIN SOD 5000 UNIT/0.5 ML CARP SQ SCH ×2 (03:43→16:33)
--- NOTE | 2016-12-14 05:14 | PROGRESS NOTE ---
DATE: 12/14/2016 The patient is resting comfortably. She is having no acute problems. Her color looks better than yesterday, although yesterday I thought she was a little bit pale, probably from the dilutional effects of the fluid and also some operative losses. Her last vitals showed a temperature of 37.1, pulse 62, respirations 14, blood pressure 105/60, O2 sats 93 on room air. I&O she had 1700 mL of urine yesterday. A Barry drainage 130 serous, slightly sanguineous. Her laboratory studies this morning is pending. Her hemoglobin yesterday from 12 on admission was dropped down to 9.6. We repeated it and it was 8.9, this morning is pending. Her abdomen is softly distended and the incision, the dressing is dry. At this point, we will discontinue the Robin catheter and increase her activity. I will go slow in oral intake since she had small bowel anastomosis on top of the colonic anastomosis. MTDD
[2016-12-14] MEDS: INSULIN ASPART 100 UNITS/ML 3 ML PEN SC SCH ×6 (05:59→20:40)
[2016-12-14] MEDS: MoRPHine SULFATE 1 MG/ML 50 ML PCA CASS IV PRN ×4 (07:06→23:10)
[2016-12-14 09:59] LABS: EOS % 0.5 %; HEMATOCRIT 23.7 % (37-47); IG% 0.4 %; LYMPH % 17.8 %; LYMPH ABS # 1.46 K/uL (1.2-3.4); MEAN CELL VOLUME 85.3 fL (80-100); MEAN CORPUSCULAR HEMOGLOBIN 28.8 pg (25-34); MEAN CORPUSCULAR HGB CONC 33.8 g/dl (32-36); MEAN PLATELET VOLUME 9.9 fL (7.4-10.4); MONO % 6.8 %; NEUT % 74.5 %; PLATELET COUNT 150 K/uL (130-400); RED BLOOD COUNT 2.78 M/uL (4.2-5.4); WHITE BLOOD COUNT 8.21 K/uL (4.8-10.8)
[2016-12-14] MEDS: PANTOprazole SOD 40 MG TAB PO SCH (10:16)
[2016-12-14] MEDS: PROPRANOLOL HCL 60 MG LA CAP PO SCH (10:16)
[2016-12-14 10:18] LABS: COMPLETE YES
[2016-12-14 10:43] LABS: BUN/CREATININE RATIO 14.4 (10-20); CALCIUM 7.9 mg/dl (8.5-10.1); CREATININE 0.79 mg/dl (0.60-1.20); POTASSIUM 3.8 mmol/L (3.5-5.1)
--- NOTE | 2016-12-14 15:40 | Progress Note ---
Internal Med Progress Note Date of Service: Dec 14, 2016. Provider Documentation: SUBJECTIVE: Seen and examined at bedside. Pain is controlled. No BM yet Passing gas, tolerating diet. Denies SOB, chest pain, dizziness, nausea. No bleeding issues. OBJECTIVE: Vital Signs-as noted below Physical Exam: General Appearance:Moderately built and nourished, no apparent distress Head: normocephalic, Atraumatic Eyes: normal inspection, EOMI, PERRL Neck: supple, Trachea midline Respiratory/Chest: Normal breath sounds, CTA Cardiovascular: S1, S2, No murmur Abdomen/GI:Soft, mild tender, Bowel sounds present, surgical site in bandage, + drain Extremities/Musculoskelatal:normal inspection, no edema Neurologic/Psych:grossly no focal neurological deficits Skin: normal color, warm Lab data as noted below. ASSESSMENT & PLAN: S/P sigmoid colectomy, repair colovaginal fistula and coloenteric fistula ( partial small bowel resection) POD # [address] Portillo pain controlled Diet per surgery Surgery following Wound care Monitor H&H for post op anemia PHYLICIA on CKD III: Resolved On IV fluids Hold lisinopril for now Monitor renal function UTI: Denies urinary symptoms Continue IV Ceftriaxone Day #2 urine culture:Klebsiella DM II: Hgb a1c of 6.1 on 11/27/16 Hold oral agents continue SSI, accu checks HTN: stable Continue propranolol Lisinopril on hold for now Monitor Paroxysmal Atrial Tachycardia: Stable continue propranolol HLD: stable Continue statin DVT Ppx: per General Surgery PCP: Dr. Rosa Vital Signs: Date Time Temp Pulse Resp B/P (MAP) Pulse Ox O2 Delivery O2 Flow Rate FiO2 12/14/16 15:43 37.0 58 16 130/77 (94) 94 Room Air 12/14/16 10:15 62 124/70 (88) 12/14/16 07:58 90 Room Air 12/14/16 07:45 Room Air 12/14/16 07:43 36.8 62 16 126/72 (90) 90 Room Air 12/14/16 03:50 37.0 63 14 103/62 (76) 92 Room Air 12/13/16 23:57 37.1 62 14 105/62 (76) 93 Room Air 12/13/16 23:40 Room Air 12/13/16 16:30 Room Air Lab Results: Results Past 24 Hours Test 12/13/16 17:57 12/14/16 00:01 12/14/16 05:58 12/14/16 08:02 Range/Units Bedside Glucose 157 142 127 108 70-90 mg/dl Test 12/14/16 09:21 12/14/16 12:00 Range/Units White Blood Count 8.21 4.8-10.8 K/uL Red Blood Count 2.78 4.2-5.4 M/uL Hemoglobin 8.0 12.0-16.0 g/dL Hematocrit 23.7 37-47 % Mean Corpuscular Volume 85.3 80-100 fL Mean Corpuscular Hemoglobin 28.8 25-34 pg Mean Corpuscular Hemoglobin Concent 33.8 32-36 g/dl Platelet Count 150 130-400 K/uL Mean Platelet Volume 9.9 7.4-10.4 fL Neutrophils (%) (Auto) 74.5 % Lymphocytes (%) (Auto) 17.8 % Monocytes (%) (Auto) 6.8 % Eosinophils (%) (Auto) 0.5 % Basophils (%) (Auto) 0.0 % Neutrophils # (Auto) 6.12 1.4-6.5 K/uL Lymphocytes # (Auto) 1.46 1.2-3.4 K/uL Monocytes # (Auto) 0.56 0.11-0.59 K/uL Eosinophils # (Auto) 0.04 0-0.5 K/uL Basophils # (Auto) 0.00 0-0.2 K/uL RDW Standard Deviation 43.6 36.4-46.3 fL RDW Coefficient of Variation 14.1 11.5-14.5 % Immature Granulocyte % (Auto) 0.4 % Immature Granulocyte # (Auto) 0.03 0.00-0.02 K/uL Red Blood Cell Morphology Unremarkable Sodium Level 141 136-145 mmol/L Potassium Level 3.8 3.5-5.1 mmol/L Chloride Level 111 98-107 mmol/L Carbon Dioxide Level 23 21-32 mmol/L Anion Gap 7.0 3-11 mmol/L Blood Urea Nitrogen 11 7-18 mg/dl Creatinine 0.79 0.60-1.20 mg/dl Est Creatinine Clear Calc Drug Dose 68.4 ml/min Estimated GFR () 83.7 Estimated GFR (Non- 72.2 BUN/Creatinine Ratio 14.4 10-20 Random Glucose 109 70-99 mg/dl Calcium Level 7.9 8.5-10.1 mg/dl Bedside Glucose 93 70-90 mg/dl
[2016-12-14] MEDS: CEFTRIAXONE SOD INJ 1 GM in DEXTROSE 5% ADD-VANTAGE 50ML 50 ML IV SCH (16:20)
[2016-12-14] MEDS: ASPIRIN 81 MG ECTAB PO SCH (20:38)
[2016-12-14] MEDS: SIMVASTATIN 20 MG TAB PO SCH (20:38)
[2016-12-15] VITALS (7 sets, daily range): BP systolic 109–174; BP diastolic 66–81; PULSE 55–69; TEMP 36.8–37.6; O2SAT 90–98
[2016-12-15] MEDS: HEPARIN SOD 5000 UNIT/0.5 ML CARP SQ SCH ×2 (03:56→16:47)
[2016-12-15 06:48] LABS: BASO % 0.3 %; BASO ABS # 0.02 K/uL (0-0.2); EOS % 3.7 %; HEMATOCRIT 23.7 % (37-47); IG% 0.3 %; LYMPH ABS # 1.96 K/uL (1.2-3.4); MEAN CELL VOLUME 85.9 fL (80-100); MEAN CORPUSCULAR HEMOGLOBIN 28.3 pg (25-34); MEAN CORPUSCULAR HGB CONC 32.9 g/dl (32-36); MEAN PLATELET VOLUME 9.6 fL (7.4-10.4); MONO % 7.6 %; NEUT % 55.1 %; PLATELET COUNT 137 K/uL (130-400); RED BLOOD COUNT 2.76 M/uL (4.2-5.4); WHITE BLOOD COUNT 5.94 K/uL (4.8-10.8)
[2016-12-15] MEDS: MoRPHine SULFATE 1 MG/ML 50 ML PCA CASS IV PRN ×4 (07:06→23:17)
[2016-12-15 07:25] LABS: BUN/CREATININE RATIO 10.5 (10-20); CALCIUM 7.7 mg/dl (8.5-10.1); CREATININE 0.76 mg/dl (0.60-1.20); POTASSIUM 3.5 mmol/L (3.5-5.1)
[2016-12-15 07:35] LABS: COMPLETE YES
--- NOTE | 2016-12-15 07:38 | PROGRESS NOTE ---
DATE: 12/15/2016 DATE: 12/15/2016 Madelyn is resting comfortably. She states she had a little nosebleed most likely related to dry air and heparinization. The patient stated that she tolerated a clear liquid diet without any problem. She started passing some flatus, but she also said she passed some air through the vagina. She had no drainage just flatus. I cannot believe this is anything related to surgery at this time, perhaps it was due to the instrumentation that we had during the surgery where we had placed at sponge forceps in there to visualize the opening intraoperatively. She is passing her urine, in fact she had 1050 of urine last night. Her abdomen is soft. The Orlin-Yen drainage is minimal. Laboratory this morning showed her hemoglobin pretty much stable at about 8, her blood pressure as noticed she is not hypotensive. Her chemistries are pending. IMPRESSION: At this point, we will increase to a full liquid diet. We will keep monitoring her hemoglobin. I do not see any reason to transfuse her at this time.
[2016-12-15] MEDS: SODIUM CHLORIDE 0.9% 1000ML 1,000 ML IV SCH ×3 (08:03→19:52)
[2016-12-15] MEDS: PANTOprazole SOD 40 MG TAB PO SCH (08:59)
[2016-12-15] MEDS: PROPRANOLOL HCL 60 MG LA CAP PO SCH (09:00)
[2016-12-15] MEDS: INSULIN ASPART 100 UNITS/ML 3 ML PEN SC SCH ×4 (09:16→21:55)
--- NOTE | 2016-12-15 14:42 | Progress Note ---
Internal Med Progress Note Date of Service: Dec 15, 2016. Provider Documentation: SUBJECTIVE: Seen and examined at bedside. Had minimal nose bleed this morning which resolved +flatus, No BM yet Tolerating diet Denies SOB, chest pain, dizziness, nausea, urinary symptoms Pain is controlled OBJECTIVE: Vital Signs-as noted below Physical Exam: General Appearance:Moderately built and nourished, no apparent distress Head: normocephalic, Atraumatic Eyes: normal inspection, EOMI, PERRL Neck: supple, Trachea midline Respiratory/Chest: Normal breath sounds, CTA Cardiovascular: S1, S2, No murmur Abdomen/GI:Soft, mild tender, Bowel sounds present, surgical site in bandage, + drain Extremities/Musculoskelatal:normal inspection, no edema Neurologic/Psych:grossly no focal neurological deficits Skin: normal color, warm Lab data as noted below. ASSESSMENT & PLAN: S/P sigmoid colectomy, repair colovaginal fistula and coloenteric fistula ( partial small bowel resection) POD # [address] Portillo pain controlled Diet per surgery Surgery following continue wound care Monitor H&H for post op anemia Hb stable. No indication for blood transfusion PHYLICIA on CKD III: Resolved On IV fluids Hold lisinopril for now Monitor renal function UTI: Denies urinary symptoms Continue IV Ceftriaxone Day #3 urine culture:Klebsiella DM II: Hgb a1c of 6.1 on 11/27/16 Hold oral agents continue SSI, accu checks HTN: stable Continue propranolol Lisinopril on hold for now Monitor Paroxysmal Atrial Tachycardia: Stable continue propranolol HLD: stable Continue statin DVT Px: per General Surgery PCP: Dr. Rosa Vital Signs: Date Time Temp Pulse Resp B/P (MAP) Pulse Ox O2 Delivery O2 Flow Rate FiO2 12/15/16 15:11 37.1 56 16 143/80 (101) 95 Room Air 12/15/16 12:55 37.0 59 18 138/81 (100) 96 Room Air 12/15/16 08:58 69 133/69 (90) 12/15/16 07:45 Room Air 12/15/16 07:43 36.8 57 15 174/76 (108) 98 Room Air 12/15/16 03:30 37.0 55 16 109/66 (80) 94 Room Air 12/15/16 00:05 Room Air 12/14/16 23:06 37.0 56 18 102/60 (74) 94 Room Air 12/14/16 20:39 37.0 58 16 117/65 (82) 93 Room Air 12/14/16 15:45 Room Air 12/14/16 15:43 37.0 58 16 130/77 (94) 94 Room Air Lab Results: Results Past 24 Hours Test 12/14/16 17:01 12/14/16 20:36 12/15/16 06:11 12/15/16 08:04 Range/Units Bedside Glucose 121 148 110 70-90 mg/dl White Blood Count 5.94 4.8-10.8 K/uL Red Blood Count 2.76 4.2-5.4 M/uL Hemoglobin 7.8 12.0-16.0 g/dL Hematocrit 23.7 37-47 % Mean Corpuscular Volume 85.9 80-100 fL Mean Corpuscular Hemoglobin 28.3 25-34 pg Mean Corpuscular Hemoglobin Concent 32.9 32-36 g/dl Platelet Count 137 130-400 K/uL Mean Platelet Volume 9.6 7.4-10.4 fL Neutrophils (%) (Auto) 55.1 % Lymphocytes (%) (Auto) 33.0 % Monocytes (%) (Auto) 7.6 % Eosinophils (%) (Auto) 3.7 % Basophils (%) (Auto) 0.3 % Neutrophils # (Auto) 3.27 1.4-6.5 K/uL Lymphocytes # (Auto) 1.96 1.2-3.4 K/uL Monocytes # (Auto) 0.45 0.11-0.59 K/uL Eosinophils # (Auto) 0.22 0-0.5 K/uL Basophils # (Auto) 0.02 0-0.2 K/uL RDW Standard Deviation 44.5 36.4-46.3 fL RDW Coefficient of Variation 14.2 11.5-14.5 % Immature Granulocyte % (Auto) 0.3 % Immature Granulocyte # (Auto) 0.02 0.00-0.02 K/uL Red Blood Cell Morphology Unremarkable Sodium Level 142 136-145 mmol/L Potassium Level 3.5 3.5-5.1 mmol/L Chloride Level 113 98-107 mmol/L Carbon Dioxide Level 24 21-32 mmol/L Anion Gap 5.0 3-11 mmol/L Blood Urea Nitrogen 8 7-18 mg/dl Creatinine 0.76 0.60-1.20 mg/dl Est Creatinine Clear Calc Drug Dose 71.1 ml/min Estimated GFR () 87.7 Estimated GFR (Non- 75.7 BUN/Creatinine Ratio 10.5 10-20 Random Glucose 96 70-99 mg/dl Calcium Level 7.7 8.5-10.1 mg/dl Test 12/15/16 11:57 Range/Units Bedside Glucose 129 70-90 mg/dl
[2016-12-15] MEDS: CEFTRIAXONE SOD INJ 1 GM in DEXTROSE 5% ADD-VANTAGE 50ML 50 ML IV SCH (16:45)
[2016-12-15] MEDS: SIMVASTATIN 20 MG TAB PO SCH (21:56)
[2016-12-15] MEDS: ASPIRIN 81 MG ECTAB PO SCH (21:56)
[2016-12-16 03:42] VITALS: BP 155/78; PULSE 61; TEMP 36.8; O2SAT 96
[2016-12-16] MEDS: HEPARIN SOD 5000 UNIT/0.5 ML CARP SQ SCH ×2 (05:02→16:46)
[2016-12-16 06:26] LABS: CREATININE 0.71 mg/dl (0.60-1.20); POTASSIUM 3.3 mmol/L (3.5-5.1)
[2016-12-16 06:50] VITALS: PULSE 60; TEMP 36.8; O2SAT 99
[2016-12-16 07:08] VITALS: BP 171/84
[2016-12-16] MEDS: MoRPHine SULFATE 1 MG/ML 50 ML PCA CASS IV PRN ×3 (07:14→22:58)
[2016-12-16] MEDS: PROPRANOLOL HCL 60 MG LA CAP PO SCH (08:44)
[2016-12-16] MEDS: PANTOprazole SOD 40 MG TAB PO SCH (08:44)
[2016-12-16] MEDS: INSULIN ASPART 100 UNITS/ML 3 ML PEN SC SCH ×4 (08:50→21:00)
[2016-12-16] MEDS: SODIUM CHLORIDE 0.9% 1000ML 1,000 ML IV SCH (08:52)
[2016-12-16 11:19] LABS: BASO % 0.2 %; BASO ABS # 0.01 K/uL (0-0.2); EOS % 3.7 %; HEMATOCRIT 24.9 % (37-47); IG% 0.4 %; LYMPH % 30.4 %; LYMPH ABS # 1.48 K/uL (1.2-3.4); MEAN CELL VOLUME 85.3 fL (80-100); MEAN CORPUSCULAR HEMOGLOBIN 28.4 pg (25-34); MEAN CORPUSCULAR HGB CONC 33.3 g/dl (32-36); MONO % 6.8 %; NEUT % 58.5 %; PLATELET COUNT 158 K/uL (130-400); RED BLOOD COUNT 2.92 M/uL (4.2-5.4); WHITE BLOOD COUNT 4.87 K/uL (4.8-10.8)
[2016-12-16 12:24] LABS: COMPLETE YES
--- NOTE | 2016-12-16 12:26 | Progress Note ---
Internal Med Progress Note Date of Service: Dec 16, 2016. Provider Documentation: SUBJECTIVE: Seen and examined at bedside. +flatus, No BM yet Tolerating diet Denies SOB, chest pain, dizziness, nausea, urinary symptoms Pain is controlled BP elevated this morning Reports she was concerned this morning as she noticed some brownish discharge from vagina OBJECTIVE: Vital Signs-as noted below Physical Exam: General Appearance:Moderately built and nourished, no apparent distress Head: normocephalic, Atraumatic Eyes: normal inspection, EOMI, PERRL Neck: supple, Trachea midline Respiratory/Chest: Normal breath sounds, CTA Cardiovascular: S1, S2, No murmur Abdomen/GI:Soft, mild tender, Bowel sounds present, surgical site in bandage, + drain Extremities/Musculoskelatal:normal inspection, no edema Neurologic/Psych:grossly no focal neurological deficits Skin: normal color, warm Lab data as noted below. ASSESSMENT & PLAN: S/P sigmoid colectomy, repair colovaginal fistula and coloenteric fistula ( partial small bowel resection) POD # [address] Portillo pain controlled Diet per surgery Surgery following continue wound care Monitor H&H for post op anemia Hb stable. No indication for blood transfusion PHYLICIA on CKD III: Resolved On IV fluids Monitor renal function Hypokalemia Replace and monitor check magnesium levels UTI: Denies urinary symptoms Received Cefazolin on 12/12/16 Continue IV Ceftriaxone Day #4/6 urine culture:Klebsiella DM II: Hgb a1c of 6.1 on 11/27/16 Hold oral agents continue SSI, accu checks HTN: elevated Continue propranolol resume Lisinopril Monitor Paroxysmal Atrial Tachycardia: Stable continue propranolol HLD: stable Continue statin DVT Px: per General Surgery PCP: Dr. Rosa Vital Signs: Date Time Temp Pulse Resp B/P (MAP) Pulse Ox O2 Delivery O2 Flow Rate FiO2 12/16/16 07:25 Room Air 12/16/16 07:08 171/84 (113) 12/16/16 06:50 36.8 60 19 99 Room Air 12/16/16 03:42 36.8 61 18 155/78 (103) 96 Room Air 12/15/16 23:44 Room Air 12/15/16 23:15 37.4 60 16 138/73 (94) 90 Room Air 12/15/16 19:54 37.6 62 16 146/70 (95) 96 Room Air 12/15/16 16:00 Room Air 12/15/16 15:11 37.1 56 16 143/80 (101) 95 Room Air 12/15/16 12:55 37.0 59 18 138/81 (100) 96 Room Air Lab Results: Results Past 24 Hours Test 12/15/16 17:04 12/15/16 20:37 12/16/16 05:05 12/16/16 08:04 Range/Units Bedside Glucose 117 146 143 70-90 mg/dl White Blood Count 4.87 4.8-10.8 K/uL Red Blood Count 2.92 4.2-5.4 M/uL Hemoglobin 8.3 12.0-16.0 g/dL Hematocrit 24.9 37-47 % Mean Corpuscular Volume 85.3 80-100 fL Mean Corpuscular Hemoglobin 28.4 25-34 pg Mean Corpuscular Hemoglobin Concent 33.3 32-36 g/dl Platelet Count 158 130-400 K/uL Mean Platelet Volume 10.0 7.4-10.4 fL Neutrophils (%) (Auto) 58.5 % Lymphocytes (%) (Auto) 30.4 % Monocytes (%) (Auto) 6.8 % Eosinophils (%) (Auto) 3.7 % Basophils (%) (Auto) 0.2 % Neutrophils # (Auto) 2.85 1.4-6.5 K/uL Lymphocytes # (Auto) 1.48 1.2-3.4 K/uL Monocytes # (Auto) 0.33 0.11-0.59 K/uL Eosinophils # (Auto) 0.18 0-0.5 K/uL Basophils # (Auto) 0.01 0-0.2 K/uL RDW Standard Deviation 42.5 36.4-46.3 fL RDW Coefficient of Variation 13.8 11.5-14.5 % Immature Granulocyte % (Auto) 0.4 % Immature Granulocyte # (Auto) 0.02 0.00-0.02 K/uL Red Blood Cell Morphology Unremarkable Sodium Level 142 136-145 mmol/L Potassium Level 3.3 3.5-5.1 mmol/L Chloride Level 111 98-107 mmol/L Carbon Dioxide Level 25 21-32 mmol/L Anion Gap 6.0 3-11 mmol/L Blood Urea Nitrogen 5 7-18 mg/dl Creatinine 0.71 0.60-1.20 mg/dl Est Creatinine Clear Calc Drug Dose 76.1 ml/min Estimated GFR () 95.2 Estimated GFR (Non- 82.2 BUN/Creatinine Ratio 7.0 10-20 Random Glucose 125 70-99 mg/dl Calcium Level 8.0 8.5-10.1 mg/dl
[2016-12-16] MEDS ORDERED: POTASSIUM CHLORIDE 10 MEQ TABCR PO ONE (12:30)
[2016-12-16] MEDS ORDERED: LISINOPRIL 5 MG TAB PO ONE (13:00)
--- NOTE | 2016-12-16 14:54 | Surgery Progress Note ---
Surgery Progress Note Date of Service Dec 16, 2016. Subjective Post OP Day: 4 pt feeling ok but was concerned she may have passed some stool through her vagina...it was some dark fluid on her washcloth, not a true vaginal bm. she feels well overall. no bm yet Objective Vital Signs: Date Time Temp Pulse Resp B/P (MAP) Pulse Ox O2 Delivery O2 Flow Rate FiO2 12/16/16 07:25 Room Air 12/16/16 07:08 171/84 (113) 12/16/16 06:50 36.8 60 19 99 Room Air 12/16/16 03:42 36.8 61 18 155/78 (103) 96 Room Air 12/15/16 23:44 Room Air 12/15/16 23:15 37.4 60 16 138/73 (94) 90 Room Air 12/15/16 19:54 37.6 62 16 146/70 (95) 96 Room Air 12/15/16 16:00 Room Air 12/15/16 15:11 37.1 56 16 143/80 (101) 95 Room Air General Appearance: no apparent distress Abdomen: non tender, non distended, soft Incision(s): clean, dry, intact Laboratory Results: Results Past 24 Hours Test 12/15/16 17:04 12/15/16 20:37 12/16/16 05:05 12/16/16 08:04 Range/Units Bedside Glucose 117 146 143 70-90 mg/dl White Blood Count 4.87 4.8-10.8 K/uL Red Blood Count 2.92 4.2-5.4 M/uL Hemoglobin 8.3 12.0-16.0 g/dL Hematocrit 24.9 37-47 % Mean Corpuscular Volume 85.3 80-100 fL Mean Corpuscular Hemoglobin 28.4 25-34 pg Mean Corpuscular Hemoglobin Concent 33.3 32-36 g/dl Platelet Count 158 130-400 K/uL Mean Platelet Volume 10.0 7.4-10.4 fL Neutrophils (%) (Auto) 58.5 % Lymphocytes (%) (Auto) 30.4 % Monocytes (%) (Auto) 6.8 % Eosinophils (%) (Auto) 3.7 % Basophils (%) (Auto) 0.2 % Neutrophils # (Auto) 2.85 1.4-6.5 K/uL Lymphocytes # (Auto) 1.48 1.2-3.4 K/uL Monocytes # (Auto) 0.33 0.11-0.59 K/uL Eosinophils # (Auto) 0.18 0-0.5 K/uL Basophils # (Auto) 0.01 0-0.2 K/uL RDW Standard Deviation 42.5 36.4-46.3 fL RDW Coefficient of Variation 13.8 11.5-14.5 % Immature Granulocyte % (Auto) 0.4 % Immature Granulocyte # (Auto) 0.02 0.00-0.02 K/uL Red Blood Cell Morphology Unremarkable Sodium Level 142 136-145 mmol/L Potassium Level 3.3 3.5-5.1 mmol/L Chloride Level 111 98-107 mmol/L Carbon Dioxide Level 25 21-32 mmol/L Anion Gap 6.0 3-11 mmol/L Blood Urea Nitrogen 5 7-18 mg/dl Creatinine 0.71 0.60-1.20 mg/dl Est Creatinine Clear Calc Drug Dose 76.1 ml/min Estimated GFR () 95.2 Estimated GFR (Non- 82.2 BUN/Creatinine Ratio 7.0 10-20 Random Glucose 125 70-99 mg/dl Calcium Level 8.0 8.5-10.1 mg/dl Assessment & Plan POD 4 from sigmoid colectomy and small bowel resection for colovaginal and coloenteric fistulas suspect the dark vaginal fluid was old blood. will monitor over next couple of days rosana clears but no bm yet...would stay on clears for now increase activity. pain controlled.
[2016-12-16 15:15] VITALS: BP 132/67; PULSE 60; TEMP 36.7; O2SAT 95
[2016-12-16] MEDS: CEFTRIAXONE SOD INJ 1 GM in DEXTROSE 5% ADD-VANTAGE 50ML 50 ML IV SCH (16:41)
[2016-12-16 19:20] VITALS: BP 139/81; PULSE 56; TEMP 36.9; O2SAT 96
[2016-12-16] MEDS: SIMVASTATIN 20 MG TAB PO SCH (21:35)
[2016-12-16] MEDS: ASPIRIN 81 MG ECTAB PO SCH (21:35)
[2016-12-16 22:58] VITALS: BP 146/84; PULSE 57; TEMP 37.2; O2SAT 95
[2016-12-17] MEDS: MoRPHine SULFATE 1 MG/ML 50 ML PCA CASS IV PRN ×5 (00:19→22:52)
[2016-12-17] MEDS: SODIUM CHLORIDE 0.9% 1000ML 1,000 ML IV SCH (03:05)
[2016-12-17 03:27] VITALS: BP 138/75; PULSE 56; TEMP 36.6; O2SAT 97
[2016-12-17] MEDS: HEPARIN SOD 5000 UNIT/0.5 ML CARP SQ SCH ×2 (03:31→16:15)
[2016-12-17 06:25] LABS: HEMATOCRIT 26.3 % (37-47)
[2016-12-17 07:03] LABS: BUN/CREATININE RATIO 5.3 (10-20); CALCIUM 8.1 mg/dl (8.5-10.1); CREATININE 0.69 mg/dl (0.60-1.20); MAGNESIUM 1.8 mg/dl (1.8-2.4); POTASSIUM 3.4 mmol/L (3.5-5.1)
[2016-12-17 07:54] VITALS: BP 144/81; PULSE 58; TEMP 37; O2SAT 95
[2016-12-17] MEDS: PROPRANOLOL HCL 60 MG LA CAP PO SCH (09:01)
[2016-12-17] MEDS: PANTOprazole SOD 40 MG TAB PO SCH (09:01)
[2016-12-17] MEDS: LISINOPRIL 5 MG TAB PO SCH (09:02)
[2016-12-17] MEDS: INSULIN ASPART 100 UNITS/ML 3 ML PEN SC SCH ×4 (09:10→20:45)
--- NOTE | 2016-12-17 10:19 | Surgery Progress Note ---
Surgery Progress Note Date of Service Dec 17, 2016. Subjective Post OP Day: 5 + feeling well, + bowel movement pt with BM this am. still having some vaginal /red/brownish discharge. rosana diet. also c/o of red/sore in groin Objective Vital Signs: Date Time Temp Pulse Resp B/P (MAP) Pulse Ox O2 Delivery O2 Flow Rate FiO2 12/17/16 07:54 37.0 58 18 144/81 (102) 95 Room Air 12/17/16 07:30 Room Air 12/17/16 03:27 36.6 56 18 138/75 (96) 97 Room Air 12/16/16 23:15 Room Air 12/16/16 22:58 37.2 57 18 146/84 (104) 95 Room Air 12/16/16 19:20 36.9 56 16 139/81 (100) 96 Room Air 12/16/16 16:20 Room Air 12/16/16 15:15 36.7 60 16 132/67 (88) 95 Room Air General Appearance: no apparent distress Respiratory/Chest: no respiratory distress, no accessory muscle use Abdomen: non tender, non distended, soft Incision(s): clean, dry, intact Extremities: + pertinent finding (appears to have b/l groin yeast dermatitis) Laboratory Results: Results Past 24 Hours Test 12/16/16 11:57 12/16/16 16:35 12/16/16 20:51 12/17/16 05:45 Range/Units Bedside Glucose 154 148 156 70-90 mg/dl Hemoglobin 8.8 12.0-16.0 g/dL Hematocrit 26.3 37-47 % Sodium Level 142 136-145 mmol/L Potassium Level 3.4 3.5-5.1 mmol/L Chloride Level 110 98-107 mmol/L Carbon Dioxide Level 26 21-32 mmol/L Anion Gap 6.0 3-11 mmol/L Blood Urea Nitrogen 4 7-18 mg/dl Creatinine 0.69 0.60-1.20 mg/dl Est Creatinine Clear Calc Drug Dose 78.3 ml/min Estimated GFR () 97.3 Estimated GFR (Non- 84.0 BUN/Creatinine Ratio 5.3 10-20 Random Glucose 136 70-99 mg/dl Calcium Level 8.1 8.5-10.1 mg/dl Magnesium Level 1.8 1.8-2.4 mg/dl Test 12/17/16 08:08 Range/Units Bedside Glucose 139 70-90 mg/dl Assessment & Plan 12/17/16 doing well. will advance diet will start anti-fungal powder to groin and stop antibiotics a day early hepwell IV d/c planning 12/16/16 POD 4 from sigmoid colectomy and small bowel resection for colovaginal and coloenteric fistulas suspect the dark vaginal fluid was old blood. will monitor over next couple of days rosana clears but no bm yet...would stay on clears for now increase activity. pain controlled. POD 4 from sigmoid colectomy and small bowel resection for colovaginal and coloenteric fistulas suspect the dark vaginal fluid was old blood. will monitor over next couple of days rosana clears but no bm yet...would stay on clears for now increase activity. pain controlled.
[2016-12-17 13:00] VITALS: BP 158/85; PULSE 61; TEMP 36.9
--- NOTE | 2016-12-17 14:06 | Progress Note ---
Internal Med Progress Note Date of Service: Dec 17, 2016. Provider Documentation: SUBJECTIVE: Seen and examined at bedside. + BM today Tolerating diet Denies SOB, chest pain, dizziness, nausea, urinary symptoms Pain is controlled Minimal vaginal reddish brown discharge this morning OBJECTIVE: Vital Signs-as noted below Physical Exam: General Appearance:Moderately built and nourished, no apparent distress Head: normocephalic, Atraumatic Eyes: normal inspection, EOMI, PERRL Neck: supple, Trachea midline Respiratory/Chest: Normal breath sounds, CTA Cardiovascular: S1, S2, No murmur Abdomen/GI:Soft, mild tender, Bowel sounds present, surgical site in bandage Extremities/Musculoskelatal:normal inspection, no edema Neurologic/Psych:grossly no focal neurological deficits Skin: normal color, warm Lab data as noted below. ASSESSMENT & PLAN: S/P sigmoid colectomy, repair colovaginal fistula and coloenteric fistula ( partial small bowel resection) POD # [address] Portillo pain controlled Diet per surgery: started on diabetic diet Surgery following continue wound care Monitor H&H for post op anemia Hb stable. No indication for blood transfusion PHYLICIA on CKD III: Resolved DC IV fluids Monitor renal function Hypokalemia Replace and monitor magnesium levels:wnl UTI: Denies urinary symptoms Received Cefazolin on 12/12/16 S/P IV Ceftriaxone: completed antibiotic course urine culture:Klebsiella DM II: Hgb a1c of 6.1 on 11/27/16 Hold oral agents continue SSI, accu checks HTN: elevated Continue propranolol, Lisinopril Monitor Paroxysmal Atrial Tachycardia: Stable continue propranolol HLD: stable Continue statin DVT Px: per General Surgery Disposition: Per surgery team PCP: Dr. Rosa Vital Signs: Date Time Temp Pulse Resp B/P (MAP) Pulse Ox O2 Delivery O2 Flow Rate FiO2 12/17/16 07:54 37.0 58 18 144/81 (102) 95 Room Air 12/17/16 07:30 Room Air 12/17/16 03:27 36.6 56 18 138/75 (96) 97 Room Air 12/16/16 23:15 Room Air 12/16/16 22:58 37.2 57 18 146/84 (104) 95 Room Air 12/16/16 19:20 36.9 56 16 139/81 (100) 96 Room Air 12/16/16 16:20 Room Air 12/16/16 15:15 36.7 60 16 132/67 (88) 95 Room Air Lab Results: Results Past 24 Hours Test 12/16/16 16:35 12/16/16 20:51 12/17/16 05:45 12/17/16 08:08 Range/Units Bedside Glucose 148 156 139 70-90 mg/dl Hemoglobin 8.8 12.0-16.0 g/dL Hematocrit 26.3 37-47 % Sodium Level 142 136-145 mmol/L Potassium Level 3.4 3.5-5.1 mmol/L Chloride Level 110 98-107 mmol/L Carbon Dioxide Level 26 21-32 mmol/L Anion Gap 6.0 3-11 mmol/L Blood Urea Nitrogen 4 7-18 mg/dl Creatinine 0.69 0.60-1.20 mg/dl Est Creatinine Clear Calc Drug Dose 78.3 ml/min Estimated GFR () 97.3 Estimated GFR (Non- 84.0 BUN/Creatinine Ratio 5.3 10-20 Random Glucose 136 70-99 mg/dl Calcium Level 8.1 8.5-10.1 mg/dl Magnesium Level 1.8 1.8-2.4 mg/dl Test 12/17/16 12:09 Range/Units Bedside Glucose 163 70-90 mg/dl
[2016-12-17] MEDS ORDERED: POTASSIUM CHLORIDE 10 MEQ TABCR PO ONE (14:15)
[2016-12-17] MEDS ORDERED: SODIUM CHLORIDE 0.9% 1000ML 1,000 ML IV SCH (14:30)
[2016-12-17] MEDS ORDERED: NURSING VERBAL MED ORDER ONE (14:30)
[2016-12-17 15:30] VITALS: BP 129/73; PULSE 57; TEMP 36.9; O2SAT 95
[2016-12-17 19:10] VITALS: BP 134/69; PULSE 58; TEMP 37.7; O2SAT 97
[2016-12-17] MEDS: MICONAZOLE NITRATE POWDER 43 GM EXT SCH (20:46)
[2016-12-17] MEDS: SIMVASTATIN 20 MG TAB PO SCH (20:46)
[2016-12-17] MEDS: ASPIRIN 81 MG ECTAB PO SCH (20:46)
[2016-12-17 23:15] VITALS: BP 154/83; PULSE 63; TEMP 37.4; O2SAT 96
[2016-12-18 03:30] VITALS: BP 137/77; PULSE 58; TEMP 37.1; O2SAT 95
[2016-12-18] MEDS: HEPARIN SOD 5000 UNIT/0.5 ML CARP SQ SCH (03:53)
[2016-12-18 06:38] LABS: HEMATOCRIT 27.1 % (37-47); MEAN CELL VOLUME 85.2 fL (80-100); MEAN CORPUSCULAR HEMOGLOBIN 28.6 pg (25-34); MEAN CORPUSCULAR HGB CONC 33.6 g/dl (32-36); MEAN PLATELET VOLUME 9.7 fL (7.4-10.4); PLATELET COUNT 170 K/uL (130-400); RED BLOOD COUNT 3.18 M/uL (4.2-5.4); WHITE BLOOD COUNT 6.49 K/uL (4.8-10.8)
[2016-12-18] MEDS: MoRPHine SULFATE 1 MG/ML 50 ML PCA CASS IV PRN (06:57)
[2016-12-18 07:38] VITALS: BP 122/65; PULSE 58; TEMP 37.2; O2SAT 95
[2016-12-18] MEDS: LISINOPRIL 5 MG TAB PO SCH (08:19)
[2016-12-18] MEDS: PANTOprazole SOD 40 MG TAB PO SCH (08:19)
[2016-12-18] MEDS: PROPRANOLOL HCL 60 MG LA CAP PO SCH (08:20)
[2016-12-18] MEDS: MICONAZOLE NITRATE POWDER 43 GM EXT SCH (08:20)
[2016-12-18] MEDS: INSULIN ASPART 100 UNITS/ML 3 ML PEN SC SCH (08:25)
[2016-12-18 08:27] VITALS: PULSE 61
[2016-12-18] MEDS ORDERED: OXYCODONE/ACETAMINOPHEN 5-325 TAB PO PRN ×2 (08:45)
[2016-12-18] MEDS ORDERED: OXYC-57 PO ×2 (09:05→09:15)
--- NOTE | 2016-12-18 09:06 | Discharge Instructions ---
Discharge Instructions Date of Service Dec 18, 2016. Admission Reason for Admission: Colovaginal Fistual, Non-Insulin Diabetes Discharge Discharge Diagnosis / Problem: sigmoid colectomy Discharge Goals Goal(s): Decrease discomfort Activity Recommendations Activity Limitations: as noted below Lifting Limitations: no more than 10 pounds Shower/Bathe: no limitations Driving or Machine Use: resume 3 days after discharge . Instructions / Follow-Up Instructions / Follow-Up Dr. Portillo in 1 week, call [phone] if you do not already have an appt or have any questions Current Hospital Diet Patient's current hospital diet: Diabetes Type 2 Diet Discharge Diet Recommended Diet: Low Fiber Diet Procedures Procedures Performed: Exploratory laparotomy, lysis of adhesions, Closure of Colovaginal Fistula and Coloenteric Fistula with small bowel resection and colonic resection. Pending Studies Studies pending at discharge: no Laboratory Results Hemoglobin A1c Test 10/11/16 06:06 Range/Units Estimated Average Glucose 143 mg/dl Hemoglobin A1c 6.6 H 4.5-5.6 % Medical Emergencies . Who to Call and When: Medical Emergencies: If at any time you feel your situation is an emergency, please call 911 immediately. . Non-Emergent Contact Non-Emergency issues call your: Surgeon Call Non-Emergent contact if: you have a fever, temperature is above 101.5, your pain is not controlled, wound has increased drainage, wound has increased redness, you have any medication questions . "Provider Documentation" section prepared by Brayden Ott. . VTE Core Measure Inpt VTE Proph given/why not?: Unfractionated heparin SQ, SCD's [place] Drug Monitoring Program Search Results: no issues identified
--- NOTE | 2016-12-18 09:36 | PROGRESS NOTE ---
DATE: 12/18/2016 Madelyn is 6th postoperative day status post resection of a sigmoid diverticulitis with a small bowel resection from a fistula and also closure of vaginal fistula. She is doing very well. She is having no pain. She is tolerating a regular diet. The abdomen is completely benign. The Pelon drain was removed from the subQ. The incision is free of any inflammation. The Barry drainage is still in and drained 40 mL overnight. She has had at least 3 bowel movements and 5 yesterday. She denies any stool from vagina, although she does have occasionally some dark drainage and I suspect this is residual from the Betadine prep that we had done and also from manipulation of surgery. Her last vitals were noted. LABORATORY: Her white count is 6.49. Her hemoglobin has pretty much stabilized at 9.1. It had dropped down to 7.8, but she was not transfused, felt a lot of it was dilutional. The path report shows some diverticular problems as we suspected. IMPRESSION: At this point, we will plan to send the patient home. She can shower and probably remove the Barry drain prior to discharge. We will expect to see her in the office in 1 week. Instructions were given regarding activity, diet and meds.
[2016-12-18 10:10] VITALS: BP 122/65; PULSE 61; TEMP 37.2; O2SAT 95
--- NOTE | 2016-12-19 16:36 | DISCHARGE SUMMARY ---
PRIMARY DISCHARGE DIAGNOSES: 1. 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 2. Postoperative (acute blood loss) anemia. 3. Chronic kidney disease with acute kidney injury. 4. Type 2 diabetes. 5. Hypertension. 6. Urinary tract infection. PROCEDURES PERFORMED: Exploratory laparotomy with lysis of adhesions, small bowel resection with [id number] anastomosis, sigmoid resection with mobilization of splenic flexure and primary side-to-end anastomosis and closure of vaginal fistula. CONSULTATIONS: [facility] hospitalist to assist in medical management. HOSPITAL COURSE: The patient is a 76-year-old female with a colovaginal fistula now brought in through same day and taken to the operating room for repair of the fistula and colectomy. 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 She had partial small bowel resection for that. The procedure was well tolerated. She was transferred to the surgical floor. Hospitalist was consulted routinely. She was continued on perioperative Mefoxin and was then given IV Rocephin. One urine culture that was taken during the insertion of Robin in the OR grew Klebsiella. Her blood sugars were covered with sliding scale insulin. We continued her home Inderal. Her lisinopril was held perioperatively. Her creatinine peaked at 1.3 on postoperative day #1 and it was 0.8 on postoperative day #2. She did have postoperative anemia, dropped as low as hemoglobin 7.8, but equilibrated at 9.1 and did not require transfusion. We advanced her diet slowly over several days. She was started on clear liquids on postoperative day #1. She was tolerating full liquids by day #3. She was moving her bowels on postoperative day #5 and was advanced to a regular diet. Her pain was managed with a MULE PACKER initially and by that time she was tolerating her diet, her pain was managed with Percocet. On postop day #6, she was tolerating diet and oral analgesics. She was stable for discharge home. Pelon drain was removed from the incision and Barry drain was also removed from the abdomen. DISCHARGE INSTRUCTIONS: Discharge home with home health. Continue daily dressing changes at the ends of the incision until dry. Follow up with Dr. Portillo in 1 week. DISCHARGE MEDICATIONS: Percocet 1-2 tablets every 4 hours as needed. Continue home medications, aspirin 81 mg daily, vitamin D3 at 1000 units daily, Amaryl 4 mg daily, lisinopril 5 mg daily, Glucophage 500 mg b.i.d., Inderal 120 mg daily, Zocor 20 mg daily, and tramadol 50 mg every 6 hours as needed. PATHOLOGY: Specimens including small intestine showed perforation consistent with a history of fistula with associated inflammation or reactive cellular changes. The large intestine showed perforation consistent with fistula and diverticulitis. MTDD
== END 2016-12-18 11:30 | disposition home health service (06) | DRG 330 ==
LOC: C.ACU 06:43 → C.MSW 07:45 → ENRESERV 12:47
PROVIDERS: ADMIT Surgery; ATTEND Surgery
PROC: 0WJG0ZZ Inspection of Peritoneal Cavity, Open Approach (ICD-10-PCS; principal; 2016-12-12 08:30)
PROC: 0DNW0ZZ Release Peritoneum, Open Approach (ICD-10-PCS; principal; 2016-12-12 08:30)
PROC: 0DBB0ZZ Excision of Ileum, Open Approach (ICD-10-PCS; principal; 2016-12-12 08:30)
PROC: 0UQG0ZZ Repair Vagina, Open Approach (ICD-10-PCS; principal; 2016-12-12 08:30)
PROC: 0D1 Gastrointestinal System, Bypass (ICD-10-PCS; principal; 2016-12-12 08:30)
DX: N82.4 Other female intestinal-genital tract fistulae (principal); N17.9 Acute kidney failure, unspecified; N39.0 Urinary tract infection, site not specified; I47.1 Supraventricular tachycardia; D62 Acute posthemorrhagic anemia; N18.3 Chronic kidney disease, stage 3 (moderate); E87.6 Hypokalemia; N73.6 Female pelvic peritoneal adhesions (postinfective); E11.22 Type 2 diabetes mellitus with diabetic chronic kidney disease; I12.9 Hypertensive chronic kidney disease with stage 1 through stage 4 chronic kidney disease, or unspecified chronic kidney disease; E78.5 Hyperlipidemia, unspecified; R04.0 Epistaxis; Z79.82 Long term (current) use of aspirin; Z79.84 Long term (current) use of oral hypoglycemic drugs; Z79.891 Long term (current) use of opiate analgesic; Z83.3 Family history of diabetes mellitus; Z82.49 Family history of ischemic heart disease and other diseases of the circulatory system

== ENCOUNTER 2017-05-06 19:38 | Emergency (ER) | payer OTHER ==
[~2017-05-06] VITALS: Ht 175.3 cm; Wt 84.1 kg
[~2017-05-06 19:38] MED LIST changes: -LACTATED RINGER'S 1000ML 1,000 ML IV SCH; +LISI-730 PO; +OXYC-57 PO
[2017-05-06 19:56] VITALS: TEMP 38; Ht 175.3 cm; Wt 84.1 kg
[2017-05-06] MEDS ORDERED: SIMV20TA2 PO (20:15)
[2017-05-06] MEDS ORDERED: LISI-729 PO (20:15)
[2017-05-06] MEDS ORDERED: TRAM-10 PO (20:15)
[2017-05-06] MEDS ORDERED: ASPI81TA28 PO (20:15)
[2017-05-06] MEDS ORDERED: CHOL100027 PO (20:15)
[2017-05-06] MEDS ORDERED: METF500T5 PO (20:15)
[2017-05-06] MEDS ORDERED: GLIM4TAB PO (20:15)
[2017-05-06] MEDS ORDERED: INDSR/120 PO (20:15)
--- NOTE | 2017-05-06 20:31 | DIAGNOSTIC IMAGING REPORT ---
CHEST ONE VIEW PORTABLE CLINICAL HISTORY: Altered mental status. Weakness. COMPARISON STUDY: No previous studies for comparison. FINDINGS: The heart is normal in size. There is no failure. There is no focal pulmonary consolidation. There are no pleural effusions. There is borderline elevation right hemidiaphragm.[ IMPRESSION: No active disease in the chest. Electronically signed by: Abdiel Rodriguez M.D. 05/06/2017 8:30 PM Dictated Date/Time: 05/06/2017 8:29 PM
[2017-05-06 20:32] LABS: MEAN CELL VOLUME 83.1 fL (80-100); MEAN CORPUSCULAR HEMOGLOBIN 27.7 pg (25-34); MEAN CORPUSCULAR HGB CONC 33.3 g/dl (32-36); MEAN PLATELET VOLUME 10.2 fL (7.4-10.4); PLATELET COUNT 181 K/uL (130-400); RED CELL DISTRIBUTION WIDTH CV 14.6 % (11.5-14.5); RED CELL DISTRIBUTION WIDTH SD 44.4 fL (36.4-46.3); WHITE BLOOD COUNT 12.53 K/uL (4.8-10.8)
[2017-05-06 20:41] LABS: PTT PATIENT 25.3 SECONDS (21.0-31.0)
[2017-05-06 20:48] LABS: BASO % 0.1 %; BASO ABS # 0.01 K/uL (0-0.2); EOS % 0.9 %; EOS ABS # 0.11 K/uL (0-0.5); IG# 0.03 K/uL (0.00-0.02); LYMPH % 14.2 %; LYMPH ABS # 1.78 K/uL (1.2-3.4); MONO % 6.1 %; MONO ABS # 0.77 K/uL (0.11-0.59); NEUT % 78.5 %; NEUT ABS # 9.83 K/uL (1.4-6.5)
[2017-05-06 20:49] LABS: ALBUMIN 3.1 gm/dl (3.4-5.0); ALT/SGPT 22 U/L (12-78); AST/SGOT 12 U/L (15-37); BLOOD UREA NITROGEN 10 mg/dl (7-18); CALCIUM 8.4 mg/dl (8.5-10.1); CARBON DIOXIDE 22 mmol/L (21-32); CREATININE 1.12 mg/dl (0.60-1.20); GLUCOSE 155 mg/dl (70-99); LIPASE 45 U/L (73-393); POTASSIUM 3.6 mmol/L (3.5-5.1); SODIUM 134 mmol/L (136-145)
[2017-05-06 20:57] LABS: ALKALINE PHOSPHATASE 90 U/L (45-117); CKMB 0.9 ng/ml (0.5-3.6); TOTAL PROTEIN 7.1 gm/dl (6.4-8.2)
[2017-05-06] MEDS ORDERED: CEFTRIAXONE SOD INJ 1 GM ADDVIAL IV STA (20:59)
[2017-05-06] MEDS ORDERED: LEVOFLOXACIN 250 MG TAB PO ONE ×2 (21:00)
[2017-05-06] MEDS ORDERED: LEVO-366 PO (21:11)
--- NOTE | 2017-05-06 21:13 | EMERGENCY ROOM VISIT NOTE ---
History Report prepared by Maurizio: Naseem Harris Under the Supervision of: Dr. Sanjiv Sexton D.O. First contact with patient: 19:47 Stated Complaint: AMS History of Present Illness The patient is a 76 year old female who presents to the Emergency Room with complaints of altered mental status that began just prior to arrival. Per the RN , the patient felt increased weakness when she got up to go to the bathroom 2 hours ago. Her urine was noted to be dark and strong smelling. The patient states she has a cough. She denies chest pain, shortness of breath, and abdominal pain. Of note, the patient lives in assisted living and is reported to have short term memory loss. Source of History: patient Onset: 2 hours ago Position: other (global) Timing: constant Associated Symptoms: + cough, + weakness, No chest pain, No SOB, No abdominal pain Review of Systems See HPI for pertinent positives & negatives. A total of 10 systems reviewed and were otherwise negative. Social History Housing Status: assisted living Occupation Status: retired Current/Historical Medications Scheduled Aspirin (Aspirin Ec), 81 MG PO DAILY Cholecalciferol (Vitamin D 1000 Unit), 1,000 INTER.UNIT PO DAILY Glimepiride (Amaryl), 4 MG PO QAM Lisinopril (Zestril), 5 MG PO DAILY Metformin Hcl Er (Glucophage Er), 500 MG PO BID Propranolol La (Inderal La), 120 MG PO DAILY Simvastatin (Zocor), 20 MG PO QPM Scheduled PRN Tramadol (Ultram), 50 MG PO Q6 PRN for Pain Allergies Coded Allergies: No Known Allergies (Unverified , 05/06/17) Physical Exam Vital Signs Date Time Temp Pulse Resp B/P (MAP) Pulse Ox O2 Delivery O2 Flow Rate FiO2 05/06/17 20:07 83 05/06/17 19:56 38.0 83 20 135/79 95 Room Air Physical Exam CONSTITUTIONAL/VITAL SIGNS: Reviewed / noted above. GENERAL: Non-toxic in appearance. INTEGUMENTARY: Warm, dry, and [place]. HEAD: Normocephalic. EYES: without scleral icterus or trauma. ENT/OROPHARYNX: clear and moist. LYMPHADENOPATHY/NECK: Is supple without lymphadenopathy or meningismus. RESPIRATORY: Lungs clear and equal. CARDIOVASCULAR: Regular rate and rhythm. GI/ABDOMEN: Soft and nontender. No organomegaly or pulsatile mass. No rebound or guarding. Normal bowel sounds. EXTREMITIES: Warm and well perfused. Redness in 1st MCP on the left foot. BACK: No CVA tenderness. NEUROLOGICAL: Intact without focal deficits. PSYCHIATRIC: normal affect. MUSCULOSKELETAL: Normally developed with good muscle tone. Medical Decision & Procedures ER Provider Diagnostic Interpretation: Radiology results as stated below per my review and radiologist interpretation: CHEST ONE VIEW PORTABLE CLINICAL HISTORY: Altered mental status. Weakness. COMPARISON STUDY: No previous studies for comparison. FINDINGS: The heart is normal in size. There is no failure. There is no focal pulmonary consolidation. There are no pleural effusions. There is borderline elevation right hemidiaphragm.[ IMPRESSION: No active disease in the chest. Electronically signed by: Abdiel Rodriguez M.D. 05/06/2017 8:30 PM Dictated Date/Time: 05/06/2017 8:29 PM Laboratory Results 05/06/17 20:20 Red Blood Count 3.97, Mean Corpuscular Volume 83.1, Mean Corpuscular Hemoglobin 27.7, Mean Corpuscular Hemoglobin Concent 33.3, Mean Platelet Volume 10.2, Neutrophils (%) (Auto) 78.5, Lymphocytes (%) (Auto) 14.2, Monocytes (%) (Auto) 6.1, Eosinophils (%) (Auto) 0.9, Basophils (%) (Auto) 0.1, Neutrophils # (Auto) 9.83, Lymphocytes # (Auto) 1.78, Monocytes # (Auto) 0.77, Eosinophils # (Auto) 0.11, Basophils # (Auto) 0.01 05/06/17 20:20 Test 05/06/17 20:20 05/06/17 20:34 White Blood Count 12.53 K/uL (4.8-10.8) Red Blood Count 3.97 M/uL (4.2-5.4) Hemoglobin 11.0 g/dL (12.0-16.0) Hematocrit 33.0 % (37-47) Mean Corpuscular Volume 83.1 fL (80-100) Mean Corpuscular Hemoglobin 27.7 pg (25-34) Mean Corpuscular Hemoglobin Concent 33.3 g/dl (32-36) Platelet Count 181 K/uL (130-400) Mean Platelet Volume 10.2 fL (7.4-10.4) Neutrophils (%) (Auto) 78.5 % Lymphocytes (%) (Auto) 14.2 % Monocytes (%) (Auto) 6.1 % Eosinophils (%) (Auto) 0.9 % Basophils (%) (Auto) 0.1 % Neutrophils # (Auto) 9.83 K/uL (1.4-6.5) Lymphocytes # (Auto) 1.78 K/uL (1.2-3.4) Monocytes # (Auto) 0.77 K/uL (0.11-0.59) Eosinophils # (Auto) 0.11 K/uL (0-0.5) Basophils # (Auto) 0.01 K/uL (0-0.2) RDW Standard Deviation 44.4 fL (36.4-46.3) RDW Coefficient of Variation 14.6 % (11.5-14.5) Immature Granulocyte % (Auto) 0.2 % Immature Granulocyte # (Auto) 0.03 K/uL (0.00-0.02) Prothrombin Time 10.7 SECONDS (9.0-12.0) Prothromb Time International Ratio 1.0 (0.9-1.1) Activated Partial Thromboplast Time 25.3 SECONDS (21.0-31.0) Partial Thromboplastin Ratio 1.0 Anion Gap 7.0 mmol/L (3-11) Est Creatinine Clear Calc Drug Dose 48.7 ml/min Estimated GFR () 54.9 Estimated GFR (Non- 47.3 BUN/Creatinine Ratio 9.2 (10-20) Calcium Level 8.4 mg/dl (8.5-10.1) Magnesium Level 1.5 mg/dl (1.8-2.4) Total Bilirubin 0.8 mg/dl (0.2-1) Direct Bilirubin 0.2 mg/dl (0-0.2) Aspartate Amino Transf (AST/SGOT) 12 U/L (15-37) Alanine Aminotransferase (ALT/SGPT) 22 U/L (12-78) Alkaline Phosphatase 90 U/L (45-117) Total Creatine Kinase 96 U/L (26-192) Creatine Kinase MB 0.9 ng/ml (0.5-3.6) Creatine Kinase MB Ratio 0.9 (0-3.0) Troponin I < 0.015 ng/ml (0-0.045) Total Protein 7.1 gm/dl (6.4-8.2) Albumin 3.1 gm/dl (3.4-5.0) Lipase 45 U/L (73-393) Thyroid Stimulating Hormone (TSH) 2.170 uIu/ml (0.300-4.500) Urine Color YELLOW Urine Appearance CLOUDY (CLEAR) Urine pH 5.0 (4.5-7.5) Urine Specific [place] 1.019 (1.000-1.030) Urine Protein NEG (NEG) Urine Glucose (UA) TRACE (NEG) Urine Ketones NEG (NEG) Urine Occult Blood NEG (NEG) Urine Nitrite POS (NEG) Urine Bilirubin NEG (NEG) Urine Urobilinogen NEG (NEG) Urine Leukocyte Esterase MODERATE (NEG) Urine WBC (Auto) >30 /hpf (0-5) Urine RBC (Auto) 0-4 /hpf (0-4) Urine Hyaline Casts (Auto) 1-5 /lpf (0-5) Urine Epithelial Cells (Auto) 0-5 /lpf (0-5) Urine Bacteria (Auto) 4+ (NEG) Laboratory results as stated above per my review. ECG Indication: weakness Rate (beats per minute): 83 Rhythm: normal sinus Findings: RBBB, T-wave inversion (Lateral), no ectopy, other (no acute injury) Change: no significant change (10/10/2016) ED Course 1946: Previous medical records were reviewed. The patient was evaluated in room A12. A complete history and physical examination was performed. 2102: I ordered the patient a dose of Levaquin and Rocephin. 2129: On reevaluation, the patient is doing well. I discussed the results and findings with the patient. She verbalized agreement of the treatment plan. The patient was discharged home. Medical Decision Differential includes acute coronary syndrome, myocardial infarction, CVA, TIA, anemia, infection, pneumonia, UTI, pyelonephritis, poor nutrition, dehydration, electrolyte disturbance,hypoglycemia. This is a 76-year-old female who presents to the ED with a chief complaint of some shaking. The patient reportedly was shaking and felt weak and had some dark-colored urine didn't smell bad. She was sent here for this. The patient specifically does not report any complaints. She states that she feels fine. Her physical exam was unremarkable. She does have a fever of 38.0. Vital signs are stable. Patient's blood work reveals an unremarkable CBC and complete metabolic panel. Troponin was negative. Chest x-ray is negative for acute disease. Urine shows positive for UTI. EKG shows a normal sinus rhythm with a right bundle branch block. The patient was treated with IV Rocephin and by mouth Levaquin. She was discharged with a dose of Levaquin for tomorrow and prescribed Levaquin. She is felt to be stable for discharge. Medication Reconcilliation Current Medication List: was personally reviewed by me Blood Pressure Screening Patient's blood pressure: Normal blood pressure Blood pressure disposition: Did not require urgent referral Impression Primary Impression: UTI (urinary tract infection) Additional Impression: Weak Scribe Attestation The scribe's documentation has been prepared under my direction and personally reviewed by me in its entirety. I confirm that the note above accurately reflects all work, treatment, procedures, and medical decision making performed by me. Departure Information Dispostion Discharge/Transfer to [facility] Prescriptions Levofloxacin (Levaquin) 500 Mg Tab 500 MG PO DAILY for 5 Days, #5 TAB Prov: Sanjiv Sexton D.O. 05/06/17 Referrals No Doctor, Assigned (PCP) Patient Instructions [facility], UTI Additional Instructions Levaquin as prescribed once daily. Follow-up with your doctor for further care and evaluation in 1-2 days. Return to the emergency department for worsening or new symptoms or any concerns. You have been examined and treated today on an emergency basis only. This is not a substitute for, or an effort to provide, complete comprehensive medical care. It is impossible to recognize and treat all injuries or illnesses in a single emergency department visit. It is therefore important that you follow up closely with your doctor. Call as soon as possible for an appointment. Problem Qualifiers
[2017-05-06 22:08] VITALS: BP 108/54; PULSE 75; O2SAT 96
--- NOTE | 2017-05-08 12:36 | Pharmacy Progress Note ---
ED Pharmacist Culture FollowUp Date of Service: May 08, 2017. Urine culture from 05/06/17 is growing e coli resistant to the Levofloxacin the patient was prescribed on discharge. I contacted the patient via phone today and she told me she had stopped taking the Levofloxacin as it had upset her stomach. She stated the [facility] in [place] had placed her on Bactrim instead. Based upon the urine C+S the Bactrim would be an appropriate choice of antibiotic. No further action required.
[2017-08-23] MEDS ORDERED: OXYC-57 PO (08:25)
== END 2017-05-06 22:23 | disposition home or self-care (01) ==
LOC: EDBD 19:38 → MERGE 19:43 → EDBD 19:43 → C.EDA 19:43
DX: N39.0 Urinary tract infection, site not specified (principal); R53.1 Weakness; Z79.899 Other long term (current) drug therapy

== ENCOUNTER → 2017-08-20 | Outpatient (CLI) | payer OTHER ==
[~2017-08-20] MED LIST changes: +ASPI81TA28 PO; +CHOL100027 PO; +LISI-729 PO; -LISI-730 PO; +LSN5 PO; +METF500T5 PO; +TRAM-10 PO
[2017-08-20 16:33] LABS: BASO % 0.5 %; BASO ABS # 0.04 K/uL (0-0.2); EOS % 2.8 %; EOS ABS # 0.21 K/uL (0-0.5); HEMATOCRIT 39.4 % (37-47); HEMOGLOBIN 13.5 g/dL (12.0-16.0); IG# 0.02 K/uL (0.00-0.02); LYMPH % 34.1 %; LYMPH ABS # 2.53 K/uL (1.2-3.4); MEAN CELL VOLUME 85.5 fL (80-100); MEAN CORPUSCULAR HEMOGLOBIN 29.3 pg (25-34); MEAN CORPUSCULAR HGB CONC 34.3 g/dl (32-36); MEAN PLATELET VOLUME 10.2 fL (7.4-10.4); MONO % 7.7 %; MONO ABS # 0.57 K/uL (0.11-0.59); NEUT % 54.6 %; NEUT ABS # 4.05 K/uL (1.4-6.5); PLATELET COUNT 184 K/uL (130-400); RED CELL DISTRIBUTION WIDTH CV 13.8 % (11.5-14.5); RED CELL DISTRIBUTION WIDTH SD 42.9 fL (36.4-46.3); WHITE BLOOD COUNT 7.42 K/uL (4.8-10.8)
[2017-08-20 16:58] LABS: BLOOD UREA NITROGEN 17 mg/dl (7-18); CALCIUM 9.3 mg/dl (8.5-10.1); CARBON DIOXIDE 26 mmol/L (21-32); CREATININE 0.96 mg/dl (0.60-1.20); GLUCOSE 100 mg/dl (70-99); SODIUM 138 mmol/L (136-145)
== END | disposition home or self-care (01) ==
LOC: C.LAB1850 15:09
PROVIDERS: ATTEND Surgery
DX: E11.9 Type 2 diabetes mellitus without complications (principal); K82.8 Other specified diseases of gallbladder; Z01.818 Encounter for other preprocedural examination

== ENCOUNTER → 2017-08-23 | Day surgery (SDC) | payer OTHER ==
[2017-08-21 08:25] VITALS: Ht 175.3 cm; Wt 83.5 kg
[~2017-08-23] VITALS: Ht 175.3 cm; Wt 83.5 kg
[~2017-08-23] MED LIST changes: -ASPI81TA28 PO; +ATROPINE SULFATE 0.1 MG/ML 5ML SYR IV PRN; -CHOL100027 PO; +CISATRACURIUM BESYLATE IV SOLN 2 MG/ML 10 ML VIAL ONE; +CONRAY 60% 50 ML VIAL ONE; +EpHEDrine SULFATE 50MG/5ML SYR ONE; +EpHEDrine SULFATE INJ 50 MG/ML AMP IV PRN; +FENTANYL CITRATE INJ 50 MCG/1 ML 2 ML VIAL IV PRN; +FENTANYL CITRATE INJ 50 MCG/1 ML 2 ML VIAL ONE; -GLC/500 PO; +GLYCOPYRROLATE INJ 0.2 MG/ML VIAL ONE; +LABETALOL HCL IV 5 MG/ML 20ML IV PRN; +LACTATED RINGER'S 1000ML 1,000 ML IV SCH; +LIDOCAINE/EPINEPHRINE 1% 20 ML VIAL ONE; -LISI-729 PO; +NALOXONE HCL 0.4 MG/1 ML VIAL/CARP IV PRN; +NEOSTIGMINE METHYLSULFATE 5 MG/5 ML SYR ONE; +ONDANSETRON INJ 2 MG/ML 2 ML VIAL IV PRN; +OXYCODONE/ACETAMINOPHEN 5-325 TAB PO PRN; +PROMETHAZINE HCL INJ 12.5 MG in SODIUM CHLORIDE 0.9% 50ML 50 ML IV PRN; +PROPOFOL IV EMULSION 10 MG/ML 20 ML VIAL IV ONE; +SODIUM CHLORIDE 0.9% 1000ML 1,000 ML IV SCH; -TRAM-10 PO; -ULT50X PO
[2017-08-23 06:14] VITALS: BP 168/87; PULSE 60; TEMP 37; O2SAT 97
--- NOTE | 2017-08-23 06:26 | History & Physical Bridge Note ---
H&P Re-Evaluation Bridge Note: I have examined the patient, reviewed the History & Physical and in the interval since the performance of the History & Physical I have noted the following changes of clinical significance: No changes noted SO at bedside, all questions answered
--- NOTE | 2017-08-23 07:59 | DIAGNOSTIC IMAGING REPORT ---
ADDENDUM Intraoperative spillage of contrast from the cystic duct. Per the referring physician, this is an expected finding. Electronically signed by: Jame Domingo M.D. 08/23/2017 8:21 AM Dictated Date/Time: 08/23/2017 8:21 AM ORIGINAL REPORT CHOLANGIOGRAM O.R. CLINICAL HISTORY: 77 years-old Female presenting with IOC. TECHNIQUE: Fluoroscopy was provided for an intraoperative cholangiogram status post cholecystectomy. Contrast was injected through the cystic duct remnant. COMPARISON: CT from 10/10/2016. FINDINGS: A catheter is in place in the cystic duct remnant. Cholecystectomy clips noted. The common bile duct is normal in course and caliber. There are no filling defects seen within the common bile duct to suggest a retained stone. Contrast extends into the small bowel. There is also jazzy peritoneal spillage of contrast consistent with bile leak. The source of leak is likely at the cystic duct as the first recorded image demonstrates opacification of the cystic duct remnant and common duct with peritoneal spillage. Incomplete opacification of the intrahepatic bile ducts with poor Association of the confluence and nonvisualization of left hepatic ducts. Fluoroscopy dosage (mGy): 0.89. Fluoroscopy time: 4.6 seconds. Number of fluoroscopic spot images: 0. IMPRESSION: Fluoroscopy provided for an intraoperative cholangiogram status post cholecystectomy. Findings consistent with bile leak likely at the cystic duct remnant. This may be a cause for incomplete opacification of intrahepatic bile ducts. No gross evidence of filling defect within the extra hepatic bile duct. The report will be called/faxed according to standard departmental protocol. Electronically signed by: Jame Domingo M.D. 08/23/2017 7:58 AM Dictated Date/Time: 08/23/2017 7:56 AM
--- NOTE | 2017-08-23 08:11 | [facility] Post Operative Brief Note ---
Immediate Operative Summary Operative Date Aug 23, 2017. Pre-Operative Diagnosis Biliary Dyskinesia Post-Operative Diagnosis Same Procedure(s) Performed Laparoscopic Cholecystectomy with Cholangiogram Surgeon Dr Portillo Adobe Layer Surgeon(s) Juli Zarate PA-C Estimated Blood Loss 3.5ML Findings See Below cc Specimens A. gallbladder Anesthesia Type General
--- NOTE | 2017-08-23 08:27 | Discharge Instructions ---
Discharge Instructions Date of Service Aug 23, 2017. Admission Reason for Admission: Biliary Dyskinesia, Diabetes Discharge Discharge Diagnosis / Problem: Biliary Dyskinesia, Diabetes Discharge Goals Goal(s): Decrease discomfort, Improve function Activity Recommendations Activity Limitations: as noted below Lifting Limitations: no more than 10 pounds Exercise/Sports Limitations: until after follow-up appointment May Resume Sexual Activity: after follow-up appointment Shower/Bathe: tomorrow Driving or Machine Use: resume 3 days after discharge . Instructions / Follow-Up Instructions / Follow-Up You have steri-strips over your incisions, please leave those on until they fall off by themselves. You may shower tomorrow, but do not soak or scrub your incisions. Please follow-up with Dr. Portillo in the General Surgery Clinic in 1-2 weeks. Please call the office at [phone] to make an appointment if you do not have one already. Please call the office with any questions or concerns. Current Hospital Diet Patient's current hospital diet: Discharge Diet Recommended Diet: Regular Diet Procedures Procedures Performed: Laparoscopic Cholecystectomy with Cholangiogram Pending Studies Studies pending at discharge: yes List of pending studies: Pathology report. Medical Emergencies . Who to Call and When: Medical Emergencies: If at any time you feel your situation is an emergency, please call 911 immediately. . Non-Emergent Contact Non-Emergency issues call your: Primary Care Provider, Surgeon Call Non-Emergent contact if: temperature is above 101.5, your pain is not controlled, wound has increased drainage, wound has increased redness . "Provider Documentation" section prepared by Juli Zarate. .
--- NOTE | 2017-08-23 09:00 | Anesthesiology Progress Note ---
Anesthesia Post Op Note Date & Time Aug 23, 2017 at 09:00 Vital Signs Pain Intensity: 1 Vital Signs Past 12 Hours Date Time Temp Pulse Resp B/P (MAP) Pulse Ox O2 Delivery O2 Flow Rate FiO2 08/23/17 08:58 36.4 08/23/17 08:57 68 16 97 08/23/17 08:57 65 16 08/23/17 08:55 142/73 08/23/17 08:52 62 21 08/23/17 08:52 62 21 100 08/23/17 08:50 140/75 08/23/17 08:47 64 12 08/23/17 08:47 64 12 100 08/23/17 08:45 146/74 08/23/17 08:42 65 12 08/23/17 08:42 64 12 100 08/23/17 08:40 146/82 08/23/17 08:37 67 16 100 08/23/17 08:37 67 16 08/23/17 08:35 140/76 08/23/17 08:32 68 13 100 08/23/17 08:32 69 13 08/23/17 08:30 150/77 08/23/17 08:22 36.4 73 16 154/75 100 Oxymask 7 08/23/17 06:14 37 60 20 168/87 (114) 97 Room Air Notes Mental Status: alert / awake / arousable, participated in evaluation Pt Amnestic to Procedure: Yes Nausea / Vomiting: adequately controlled Pain: adequately controlled Airway Patency, RR, SpO2: stable & adequate BP & HR: stable & adequate Hydration State: stable & adequate Anesthetic Complications: no major complications apparent
[2017-08-23 09:15] VITALS: BP 149/71; PULSE 58; TEMP 36.5; O2SAT 96
[2017-08-23 09:45] VITALS: BP 132/73; PULSE 64; TEMP 36.5; O2SAT 96
--- NOTE | 2017-08-23 15:22 | OPERATIVE REPORT ---
DATE OF OPERATION: 08/23/2017 SURGEON: Kendall Portillo MD CHUCKER: Juli Zarate PA-C PREOPERATIVE DIAGNOSES: Chronic cholecystitis, biliary dyskinesia. POSTOPERATIVE DIAGNOSES: Chronic cholecystitis, biliary dyskinesia. PROCEDURE: Laparoscopic cholecystectomy, intraoperative cholangiogram. SUMMARY: After induction of general endotracheal anesthesia, the patient's abdomen was prepped with Betadine scrubbing solution and properly draped. We made a small incision about an inch or so above the umbilicus and we were able to elevate the fascia with Lavern clamps. A small opening of fascia was made, 0 Vicryl suture was used as stay sutures. With a hemostat under direct visualization, we entered the peritoneal cavity followed by 5 mm trocar. CO2 insufflated approximately a low flow until we were able to establish enough for pneumoperitoneum. Pneumoperitoneum was controlled with the stay sutures of 0 Vicryl around the 5 mm trocar. The patient was then placed in reverse Trendelenburg position, rotated to the left. Under direct visualization, we placed a 5 mm epigastric port. We then placed two 3 mm subcostal ports. The gallbladder was elevated, was identified, it was quite long, redundant, and floppy. We elevated with a lateral grasper then around the lili hepatis, we took down. There were no adhesions in major part of the gallbladder but some adhesive bands were down in the neck of the gallbladder, probably chronic inflammation. We took this down bluntly. We created a window between the cystic duct and the artery. The cystic duct was clamped proximally. A small opening in the cystic duct was made. A #4 urethral catheter transversing abdominal wall placed in the cystic duct. Serial x-rays were taken. We did have some extravasation right at the entry of the cystic duct catheter, when we injected we could see the distal common bile duct without any filling defect and proximally there was not enough contrast that favored to go distally. At this point, the cholangiocatheter was removed. The cystic duct was securely clipped twice. After we noted, it was a redundant cystic duct we choked on it a bit. The cystic artery was doubly clipped and divided. Gallbladder removed in antegrade fashion using electrocautery, leaving the posterior peritoneum intact, checked the subhepatic area appeared satisfactory. We then took the gallbladder and placed in an Endopouch and took it out intact through the epigastric port. Prior to closing the operating field, we placed a camera in the epigastric port to visualize the umbilical opening, we could see that the patient had a loop of bowel adjacent to where the trocar was entered the abdominal cavity. It seemed like trocar may have gone through the mesentery, but we mobilized that area sufficiently. There was no evidence of any injury to the bowel. At this point, we irrigated the area. There was no evidence of any succuss entericus. While doing this, we have a stat call from the radiology department that there was a leak in the bile duct. This was nothing more than just the intraoperative cholangiogram that was done and it was leaking a little bit to cystic duct, it was the cystic duct remnants and we were even divided by then, we will address the issue with the radiologist at the end of the case. Individual trocars removed and last umbilical trocar, 0 Vicryl suture was used as stay suture in the umbilical area, 4-0 Monocryl. Steri-Strips applied. The procedure was tolerated well by the patient and was taken to recovery room in good condition. I attest to the content of the Intraoperative Record and any orders documented therein. Any exceptions are noted below. MTDD
== END | disposition home or self-care (01) ==
LOC: C.ACU 04:47
PROVIDERS: ATTEND Surgery
DX: K81.1 Chronic cholecystitis (principal); M19.90 Unspecified osteoarthritis, unspecified site; E78.5 Hyperlipidemia, unspecified; E11.9 Type 2 diabetes mellitus without complications; E78.00 Pure hypercholesterolemia, unspecified; N18.3 Chronic kidney disease, stage 3 (moderate); I12.9 Hypertensive chronic kidney disease with stage 1 through stage 4 chronic kidney disease, or unspecified chronic kidney disease; Z82.3 Family history of stroke; Z83.3 Family history of diabetes mellitus; Z82.49 Family history of ischemic heart disease and other diseases of the circulatory system; Z80.3 Family history of malignant neoplasm of breast; Z79.82 Long term (current) use of aspirin; Z79.899 Other long term (current) drug therapy; Z79.4 Long term (current) use of insulin

== ENCOUNTER → 2017-12-28 | Outpatient (CLI) | payer OTHER ==
[~2017-12-28] MED LIST changes: -ATROPINE SULFATE 0.1 MG/ML 5ML SYR IV PRN; -CISATRACURIUM BESYLATE IV SOLN 2 MG/ML 10 ML VIAL ONE; -CONRAY 60% 50 ML VIAL ONE; -EpHEDrine SULFATE 50MG/5ML SYR ONE; -EpHEDrine SULFATE INJ 50 MG/ML AMP IV PRN; -FENTANYL CITRATE INJ 50 MCG/1 ML 2 ML VIAL IV PRN; -FENTANYL CITRATE INJ 50 MCG/1 ML 2 ML VIAL ONE; -GLYCOPYRROLATE INJ 0.2 MG/ML VIAL ONE; -LABETALOL HCL IV 5 MG/ML 20ML IV PRN; -LACTATED RINGER'S 1000ML 1,000 ML IV SCH; -LIDOCAINE/EPINEPHRINE 1% 20 ML VIAL ONE; +LISI-730 PO; -LSN5 PO; -NALOXONE HCL 0.4 MG/1 ML VIAL/CARP IV PRN; -NEOSTIGMINE METHYLSULFATE 5 MG/5 ML SYR ONE; -ONDANSETRON INJ 2 MG/ML 2 ML VIAL IV PRN; -OXYC-57 PO; -OXYCODONE/ACETAMINOPHEN 5-325 TAB PO PRN; -PROMETHAZINE HCL INJ 12.5 MG in SODIUM CHLORIDE 0.9% 50ML 50 ML IV PRN; -PROPOFOL IV EMULSION 10 MG/ML 20 ML VIAL IV ONE; -SODIUM CHLORIDE 0.9% 1000ML 1,000 ML IV SCH
[2017-12-28 13:18] LABS: BASO % 0.3 %; BASO ABS # 0.02 K/uL (0-0.2); EOS % 2.9 %; HEMATOCRIT 37.3 % (37-47); HEMOGLOBIN 12.8 g/dL (12.0-16.0); IG# 0.02 K/uL (0.00-0.02); LYMPH % 36.3 %; MEAN CELL VOLUME 84.6 fL (80-100); MEAN CORPUSCULAR HGB CONC 34.3 g/dl (32-36); MEAN PLATELET VOLUME 11.2 fL (7.4-10.4); MONO % 6.7 %; MONO ABS # 0.46 K/uL (0.11-0.59); NEUT % 53.5 %; NEUT ABS # 3.68 K/uL (1.4-6.5); PLATELET COUNT 225 K/uL (130-400); RED CELL DISTRIBUTION WIDTH CV 13.5 % (11.5-14.5); RED CELL DISTRIBUTION WIDTH SD 41.5 fL (36.4-46.3); WHITE BLOOD COUNT 6.88 K/uL (4.8-10.8)
[2017-12-28 13:46] LABS: ALBUMIN 3.7 gm/dl (3.4-5.0); ALKALINE PHOSPHATASE 92 U/L (45-117); ALT/SGPT 22 U/L (12-78); AST/SGOT 15 U/L (15-37); BLOOD UREA NITROGEN 11 mg/dl (7-18); CALCIUM 8.6 mg/dl (8.5-10.1); CARBON DIOXIDE 18 mmol/L (21-32); CREATININE 1.16 mg/dl (0.60-1.20); GLUCOSE 219 mg/dl (70-99); POTASSIUM 4.1 mmol/L (3.5-5.1); SODIUM 136 mmol/L (136-145); TOTAL PROTEIN 7.9 gm/dl (6.4-8.2); URIC ACID 7.9 mg/dl (2.6-7.2)
== END | disposition home or self-care (01) ==
LOC: C.LABPBG 10:53
PROVIDERS: ATTEND Physician Assistant
DX: R19.7 Diarrhea, unspecified (principal); M10.9 Gout, unspecified

== ENCOUNTER → 2017-12-30 | Outpatient (CLI) | payer OTHER | END | disposition home or self-care (01) | LOC: C.LABSPEC 08:15 → C.LABPBG 08:15 | PROVIDERS: ATTEND Family Medicine | DX: R19.7 Diarrhea, unspecified (principal) ==